=== PATIENT | female | born 1955 | race Caucasian/White ===

== ENCOUNTER → 2016-05-30 | Outpatient (CLI) | payer OTHER ==
--- NOTE | 2016-05-30 12:54 | REPMRS ---
Patient History The patient states she had a clinical breast exam in 05/2016. Patient is postmenopausal. Family history of breast cancer in mother. Benign excisional biopsy of the left breast, March 02, 2012. Digital Woman Screen Mammo: May 30, 2016 - Exam #: [id number] Bilateral CC and MLO view(s) were taken. Technologist: Mely Muhammad, Technologist Prior study comparison: July 13, 2014, digital mammo diagnostic bilateral, performed at [facility]. July 12, 2013, bilateral digital mammo screening bilat, performed at [facility]. FINDINGS: There are scattered fibroglandular densities. There has been no change in the appearance of the mammogram from the prior studies. There is a mild amount of scattered fibroglandular density which is fairly symmetric. There is no interval development of dominant mass, architectural distortion, or clustered microcalcification suggestive of malignancy. ASSESSMENT: BI-RADS/ACR category 1 mammogram. Negative. Recommendation Routine screening mammogram in 1 year (for women over age 40). This mammogram was interpreted with the aid of an FDA-approved computer-aided dectection system. Electronically Signed By: Jonatan Rodriguez MD 05/30/16 8418
== END ==
LOC: M WHC 09:29
PROVIDERS: ATTEND Nurse Practitioner Family
DX: Z12.31 Encounter for screening mammogram for malignant neoplasm of breast (principal); Z78.0 Asymptomatic menopausal state; Z80.3 Family history of malignant neoplasm of breast

== ENCOUNTER → 2017-06-13 | Outpatient (CLI) | payer OTHER | LOC: M RAD 09:00 | DX: N63.20 Unspecified lump in the left breast, unspecified quadrant (principal) ==

== ENCOUNTER → 2018-06-10 | Outpatient (CLI) | payer OTHER ==
--- NOTE | 2018-06-10 12:00 | REPMRS ---
Patient History The patient states she had a clinical breast exam in 05/2018. Family history of breast cancer in mother. Benign excisional biopsy of the left breast, March 02, 2012. Digital Woman Screen Mammo: June 10, 2018 - Exam #: [id number] Bilateral CC and MLO view(s) were taken. Technologist: Hortensia Perkins, Technologist Prior study comparison: June 13, 2017, digital mammo diagnostic bilateral, performed at [facility]. May 30, 2016, digital woman screen mammo performed at [facility]. July 13, 2014, digital mammo diagnostic bilateral, performed at [facility]. FINDINGS: There are scattered fibroglandular densities. There has been no change in the appearance of the mammogram from the prior studies. There is a mild amount of scattered fibroglandular density which is fairly symmetric. There is no interval development of dominant mass, architectural distortion, or clustered microcalcification suggestive of malignancy. 3-D tomosynthesis shows no additional findings. Assessment: BI-RADS/ACR category 1 mammogram. Negative Mammogram. Recommendation Routine screening mammogram of both breasts in 1 year (for women over age 40). This patient's Lifetime Breast Cancer RIsk is estimated at 14.7 %. This mammogram was interpreted with the aid of an FDA-approved computer-aided dectection system. Electronically Signed By: Jonatan Rodriguez MD 06/10/18 1200
== END ==
LOC: M WHC 09:09
PROVIDERS: ATTEND Nurse Practitioner Family
DX: Z12.31 Encounter for screening mammogram for malignant neoplasm of breast (principal); Z80.3 Family history of malignant neoplasm of breast

== ENCOUNTER → 2019-06-14 | Outpatient (CLI) | payer OTHER ==
--- NOTE | 2019-06-14 10:53 | REPMRS ---
Patient History The patient states she had a clinical breast exam in May 2019.Patient is postmenopausal. Family history of breast cancer in mother. Benign excisional biopsy of the left breast, March 02, 2012. 3D TOMOSYNTHESIS WAS PERFORMED. The Alexander العراقي lifetime risk for breast cancer is 14.2%. VOLPARA DENSITY SCORE B. Digital Woman Screen Mammo: June 14, 2019 - Exam #: [id number] Bilateral CC and MLO view(s) were taken. Technologist: Elva Robledo, Technologist Prior study comparison: June 10, 2018, bilateral digital woman screen mammo performed at [facility]. June 13, 2017, digital mammo diagnostic bilateral, performed at [facility]. FINDINGS: There are scattered fibroglandular densities. There has been no change in the appearance of the mammogram from the prior studies. There is a mild amount of residual fibroglandular tissue which is fairly symmetric. There is no interval development of dominant mass, architectural distortion, or clustered microcalcification suggestive of malignancy. Assessment: BI-RADS/ACR category 1 mammogram. Negative Mammogram. Recommendation Routine screening mammogram in 1 year (for women over age 40). This mammogram was interpreted with the aid of an FDA-approved computer-aided dectection system. Electronically Signed By: Jonathan Mandel MD 06/14/19 1311
== END ==
LOC: M WHC 08:28
PROVIDERS: ATTEND Nurse Practitioner Family
DX: Z12.31 Encounter for screening mammogram for malignant neoplasm of breast (principal)

== ENCOUNTER → 2020-01-05 | Outpatient (CLI) | payer OTHER ==
[~2020-01-05] MED LIST: PROHANCE 279.3MG/ML 15ML VIAL As Ordered ONE; PROHANCE 279.3MG/ML 5ML VIAL As Ordered ONE
--- NOTE | 2020-01-05 13:03 | REP ---
INDICATION: LOCALIZED SWELLING, MASS AND LUMP, RIGHT LOWER LIMB. Swelling right lower extremity since February. COMPARISON: Comparison radiographs September 01, 2019.. TECHNIQUE: Axial, sagittal and coronal imaging planes utilized. T1 and T2 weighted scans are obtained in the usual fashion with and without fat saturation. Post gadolinium enhanced imaging is acquired in all 3 planes. The gadolinium enhancement dose is 19 mL of intravenous ProHance. FINDINGS: There is diffuse subcutaneous edema of along the muscle subcutaneous fat interface and distally more extensively throughout the subcutaneous fat layer circumferentially about the left calf. There is no evidence of soft tissue fluid collection or mass. Skeletal muscle signal intensity is normal on T1 and T2-weighted pre and post contrast enhanced images. No abnormality is noted in the vasculature. There are some superficial vein varices. Cortical and medullary bone signal intensity are normal. There is no evidence of periosteal reaction or marrow lesion. No bony destructive lesion is appreciated. Postcontrast imaging shows mild enhancement in the edematous fat of the distal calf. There is mild dermal thickening question cellulitis pattern. IMPRESSION: Superficial venous varicosities and diffuse enhancement in the subcutaneous fat of the right lower extremity. No mass, abscess or other fluid collection, or skeletal muscle or bone lesion seen. <Electronically signed by Jonatan Rodriguez > 01/05/20 9129
== END ==
LOC: M RAD 08:36
PROVIDERS: ATTEND Physician Assistant
DX: I83.892 Varicose veins of left lower extremity with other complications (principal); R22.41 Localized swelling, mass and lump, right lower limb
CPT/HCPCS: 73720; A9576

== ENCOUNTER → 2020-01-18 | Outpatient (REF) | payer OTHER | LOC: M LAB REF 17:05 | PROVIDERS: ATTEND Physician Assistant | DX: D48.5 Neoplasm of uncertain behavior of skin (principal) ==

== ENCOUNTER 2020-03-27 09:40 | Observation (INO) | payer OTHER ==
[~2020-03-27] VITALS: Ht 154.9 cm; Wt 96.9 kg
[~2020-03-27 09:40] MED LIST changes: +ENOXAPARIN 100MG/1ML SYRINGE (J1650 PER 10MG) SC SCH; +MAALOX 30 ML SUSP *UDC PO PRN; +MOM 30ML SUSPENSION UDC PO PRN; -PROHANCE 279.3MG/ML 15ML VIAL As Ordered ONE; -PROHANCE 279.3MG/ML 5ML VIAL As Ordered ONE
--- OUTSIDE RECORDS SUMMARY | 2020-03-27 09:47 | CCD | Continuity of Care Document ---
Author Author Velma CANTU MD Organization Unknown Address [address] [place] [address] Phone [phone] Care Team Providers Care Adult Crossing Guard Name Role Phone Misty Vanegas PA-C Unavailable Problems Description No Information Available Social History Type Date Description Comments Sex Unknown Allergies, Adverse Reactions, Alerts Description No Information Available Medications Description No Information Available Immunizations Description No Information Available Vital Signs Date Vital Result Comment 03/14/2020 8:09am Body Temperature 96.9 F Height 62 inches 5'2" Weight 212.00 lb BMI (Body Mass Index) 38.8 kg/m2 Results Description No Information Available Procedures Description No Information Available Medical Devices Description No Information Available Encounters Description No Information Available Assessments Date Code Description Provider 03/14/2020 M79.661 Pain in right lower leg Rickey Cantu MD Plan of Treatment 03/14/2020 - Rickey Cantu MD* M79.661 Pain in right lower leg* Follow up:* prn Functional Status Description No Information Available Mental Status Description No Information Available Referrals Description No Information Available
--- OUTSIDE RECORDS SUMMARY | 2020-03-27 09:47 | CCD ---
Author Author [facility] Organization [facility] Address Unknown Phone Unavailable Care Team Providers Care Implementation Project Coordinator Name Role Phone La Berrios Unavailable PROBLEMS Type Condition ICD9-CM Code [id number] Code Onset Dates Condition S tatus SNOMED Code Notes Problem Family history of breast cancer in mother Z80.3 Active 163263516 Problem Gastroesophageal reflux disease without esophagitis K21.9 Active 197775447 Problem Urinary, incontinence, stress female N39.3 Act edith 15386163 Problem Galactorrhea O92.6 Active 60669402 ALLERGIES No Known Allergies ENCOUNTERS from 1955 to 2020-01-25 Encounter Location Date Provider Diagnosis [facility] [address] [address] 2 4 Dec, 2019 La Berrios Mora angioma D18.01 and 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 Sexual Hx: Question Answer Notes Had sex in the last 12 months (vaginal, oral, or anal)? No LMP: 2006 Have you ever had an STD? No Drug and Alcohol Question Answer Notes Total Score: 0 Interpretation: No problems reported Alcohol Screening: Question Answer Notes Did you have a drink containing alcohol in the past year? No Points 0 Interpretation Negative BMI Care Goal Follow-Up Question Answer Notes Above Normal BMI Follow-Up Giving encouragement to exercise Tobacco Use: Question Answer Notes Are you a: former smoker How long has it been since you last smoked? > 10 years REASON FOR REFERRAL No Information VITAL SIGNS Weight 215.4 lbs Dec, Height 61 1/4 in Dec, BMI 40.36 kg/m2 Dec, Blood pressure systolic 142 mm Hg Dec, Blood pressure diastolic 78 mm Hg Dec, MEDICATIONS Medication SIG (Take, Route, Frequency, Duration) Notes Start Da te End Date Status Nexium 20 MG 1 capsule Orally Once a day as needed Not-Taking Zantac 75 75 MG 1 tablet as needed Orally Twice a day Not-Taking Omeprazole 20 MG Orally once a day as needed Active PROCEDURES No Information RESULTS No Results REASON FOR VISIT skin tag removal, derm referral MEDICAL (GENERAL) HISTORY Type Description Date Medical History DR. BRITTON Medical History ADH left breast 2012 Dr Bates Surgical History abdominal hysterectomy, total with BSO 2 006 Surgical History ce. 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 The patient was educated on the potential risks and benefits of the procedure and gave his/her informed consent. Location of biopsy noted in the physical exam and images uploaded to the medical record. Area(s) treated with EtOH. Local anesthesia performed with <1mL of 1% lidocaine with epinephrine per site. Site(s) verified with patient via timeout utilizing patient name and date of . Biopsy/Biopsies performed. Dual site-specimen cup verification performed verbally between provider and clinic staff. Hemostasis achieved with hyfrecation or aluminum chloride/styptic. Closure: secondary intent. Petrolatum and bandage applied. Wound care instruction addressed with patient by provider or clinic staff and wound care handout given. Patient tolerated the procedure well and left in stable condition. Patient reports that his/her pain was well-managed. There was no noted significant d ifference from baseline pain score after procedure. Patient was educated to use acetaminophen 500mg up to 4 times daily. If not sufficient, patient was educated to re-present to the dermatology clinic or, if after hours, the emergency department. Patient was informed they would be notified in 10-14 days by telephone for all malignant conditions and scheduled for definitive management. 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 The patient was educated on the potential risks and benefits of the procedure and gave his/her informed consent. Location of biopsy noted in the physical exam and images uploaded to the medical record. Area(s) treated with EtOH. Local anesthesia performed with <1mL of 1% lidocaine with epinephrine per site. Site(s) verified with patient via timeout utilizing patient name and date of . Biopsy/Biopsies performed. Dual site-specimen cup verification performed verbally between provider and clinic staff. Hemostasis achieved with hyfrecation or aluminum chloride/styptic. Closure: secondary intent. Petrolatum and bandage applied. Wound care instruction addressed with patient by provider or clinic staff and wound care handout given. Patient tolerated the procedure well and left in stable condition. Patient reports that his/her pain was well- managed. There was no noted significant difference from baseline pain score after procedure. Patient was educated to use acetaminophen 500mg up to 4 times daily. If not sufficient, patient was educated to re-present to the dermatology clinic or, if after hours, the emergency department. Patient was informed they would be notified in 10-14 days by telephone for all malignant conditions and scheduled for definitive management. Next Appt Details prn Reason: Insurance Providers Payer Name Payer Address Payer Phone Insured Name Patient Relati onship to Insured Coverage Start Date Coverage End Date AETNA [facility] [address] [facility] [id number] TERE OLMSTEAD self
--- OUTSIDE RECORDS SUMMARY | 2020-03-27 09:47 | CCD ---
Author Author [facility] Organization [facility]st em[facility] Address Unknown Phone Unavailable Care Team Providers Care Control Room Technician Name Role Phone Misty Vanegas Unavailable PROBLEMS Type Condition ICD9-CM Code [id number] Code Onset Dates Condition S tatus SNOMED Code Notes Problem Family history of breast cancer in mother Z80.3 Active 871172350 Problem Gastroesophageal reflux disease without esophagitis K21.9 Active 068429315 Problem Urinary, incontinence, stress female N39.3 Act edith 95212879 Problem Galactorrhea O92.6 Active 72296129 ALLERGIES No Known Allergies ENCOUNTERS from 1955 to 2020-02-07 Encounter Location Date Provider Diagnosis [address] [address] Jan, Misty Vanegas Localized swelling of right lower leg R2 2.41 IMMUNIZATIONS No Information SOCIAL HISTORY Tobacco Use: Social History Observation Description Date Details (start date - stop date) Former Smoker Sex Assigned At : Social History Observation Description Sex Assigned At Unknown Education: Question Answer Notes Level of Education: College Audit Question Answer Notes Total Score: 0 Interpretation: Alcohol Education Language: Question Answer Notes Languages spoken: Scottish Orthodoxy: Question Answer Notes Orthodoxy No yazdanism beliefs that would impact health care. Sexual [...] REASON FOR REFERRAL No Information VITAL SIGNS No information MEDICATIONS Medication SIG (Take, Route, Frequency, Duration) Notes Start Da te End Date Status Nexium 20 MG 1 capsule Orally Once a day as needed Not-Taking Zantac 75 75 MG 1 tablet as needed Orally Twice a day Not-Taking Omeprazole 20 MG Orally once a day as needed Active Lisinopril 10 MG 1 tablet Orally Once a day for 30 day(s) Jan, Active PROCEDURES No Information RESULTS No Results REASON FOR VISIT MRI and Referral MEDICAL (GENERAL) HISTORY Type Description Date Medical History DUB/2005 DR. BRITTON Medical History ADH left breast 2012 Dr Bates Surgical History abdominal hysterectomy, total with BSO 2 006 Surgical History ce. feet surgery/calcium deposits 1973 Surgical History left breast surgery/cyst removed 1992 Surgical History cysts removed froma back and wrists Surgical History breast duct excision left 2013 Goals Section No Information Health Concerns No Information MEDICAL EQUIPMENT No Information MENTAL STATUS No Information FUNCTIONAL STATUS No Information ASSESSMENTS Encounter Date Diagnosis Assessment Notes Treatment Notes Treatm ent Clinical Notes Jan, Localized swelling of right lower leg (ICD-10 - R22.41) PLAN OF TREATMENT Medication Medication Name Sig Start Date Stop Date Lisinopril 10 MG 1 tablet Orally Once a day for 30 day(s) Jan Insurance Providers Payer Name Payer Address Payer Phone Insured Name Patient Relati onship to Insured Coverage Start Date Coverage End Date AETNA [facility] [address] [facility] [id number] TERE OLMSTEAD self
--- OUTSIDE RECORDS SUMMARY | 2020-03-27 09:47 | CCD ---
Author Author [facility] Organization [facility] Syst ems Address Unknown Phone Unavailable Care Team Providers Care Space Buyer Name Role Phone Misty Vanegas Unavailable PROBLEMS Type Condition ICD9-CM Code FPL30-DN Code Onset Dates Condition S tatus SNOMED Code Notes Problem Family history of breast cancer in mother Z80.3 Active 372545269 Problem Gastroesophageal reflux disease without esophagitis K21.9 Active 097992576 Problem Urinary, incontinence, stress female N39.3 Act edith 57288300 Problem Galactorrhea O92.6 Active 51333626 ALLERGIES No Known Allergies ENCOUNTERS from 1955 to 2020-02-07 Encounter Location Date Provider Diagnosis [address] [address] Jan, Mistyeusebia Vanegas IMMUNIZATIONS No Information SOCIAL HISTORY Tobacco Use: Social History Observation Description Date Details (start date - stop date) Former Smoker Sex Assigned At : Social History Observation Description Sex Assigned At Unknown Education: Question Answer Notes Level of Education: College Audit Question Answer Notes Total Score: 0 Interpretation: Alcohol Education Language: Question Answer Notes Languages spoken: Japanese Christianity: Question Answer Notes Christianity No judaism beliefs that would impact health care. Sexual [...] RESULTS No Results REASON FOR VISIT MRI MEDICAL (GENERAL) HISTORY Type Description Date Medical History /2005 DR. BRITTON Medical History ADH left breast [...] No Information FUNCTIONAL STATUS No Information ASSESSMENTS No Information PLAN OF TREATMENT Medication Medication Name Sig Start Date Stop Date Lisinopril 10 MG 1 tablet Orally Once a day for 30 day(s) Jan Insurance Providers Payer Name Payer Address Payer Phone Insured Name Patient Relati onship to Insured Coverage Start Date Coverage End Date AETNA [facility] [address] [facility] [id number] TERE OLMSTEAD self
--- OUTSIDE RECORDS SUMMARY | 2020-03-27 09:47 | CCD ---
Author Author [facility] Organization [facility] Syst ems Address Unknown Phone Unavailable Care Team Providers Care Endocrinology Teacher Name Role Phone Misty Vanegas Unavailable PROBLEMS Type Condition ICD9-CM Code YKL68-FJ Code Onset Dates Condition S tatus SNOMED Code Notes Problem Family history of breast cancer in mother Z80.3 Active 048320139 Problem Gastroesophageal reflux disease without esophagitis K21.9 Active 683012927 Problem Urinary, incontinence, stress female N39.3 Act edith 43884656 Problem Galactorrhea O92.6 Active 43430007 ALLERGIES No Known Allergies ENCOUNTERS from 1955 to 2020-01-29 Encounter Location Date Provider Diagnosis [address] [address] Jan, Mistyeusebia Vanegas IMMUNIZATIONS No Information SOCIAL HISTORY Tobacco Use: Social History Observation Description Date Details (start date - stop date) Former Smoker Sex Assigned At : Social History Observation Description Sex Assigned At Unknown Education: Question Answer Notes Level of Education: College Audit Question Answer Notes Total Score: 0 Interpretation: Alcohol Education Language: Question Answer Notes Languages spoken: Bengali Episcopalian: Question Answer Notes Episcopalian No samaritan beliefs that would impact health care. Sexual [...] Information RESULTS No Results REASON FOR VISIT Refill for high blood pressure medication MEDICAL (GENERAL) HISTORY Type Description Date Medical [...] Coverage Start Date Coverage End Date AETNA [facility] [place] [address] [facility] [id number] TERE OLMSTEAD self
--- OUTSIDE RECORDS SUMMARY | 2020-03-27 09:48 | CCD ---
Author Author [facility] Organization [facility] Address Unknown Phone Unavailable Care Team Providers Care Rig Hand Name Role Phone BRODY PA-C, [phone] A. RALEIGH PA Unavailable Unava ilable BRODY PA-C, [phone] A. RALEIGH PA Unavailable Unava ilable BRODY PA-C, [phone] A. RALEIGH PA Unavailable Unava ilable BRODY PA-C, [phone] A. RALEIGH PA Unavailable Unava ilable BRODY PA-C, [phone] A. RALEIGH PA Unavailable Unava ilable BRODY PA-C, [phone] A. RALEIGH PA Unavailable Unava ilable BRODY PA-C, [phone] A. RALEIGH PA Unavailable Unava ilable TURRIN, AGUILAR Unavailable Unavailable TURRIN, AGUILAR Unavailable Unavailable TURRIN, AGUILAR Unavailable Unavailable TURRIN, AGUILAR Unavailable Unavailable CARTER, JOSEPHINE PA Unavailable Unavailable CARTER, JOSEPHINE PA Unavailable Unavailable CARTER, JOSEPHINE PA Unavailable Unavailable CARTER, JOSEPHINE PA Unavailable Unavailable CARTER, JOSEPHINE PA Unavailable Unavailable CARTER, JOSEPHINE PA Unavailable Unavailable CARTER, JOSEPHINE PA Unavailable Unavailable CARTER, JOSEPHINE PA Unavailable Unavailable CARTER, JOSEPHINE PA Unavailable Unavailable CARTER, JOSEPHINE PA Unavailable Unavailable CARTER, JOSEPHINE PA Unavailable Unavailable CARTER, JOSEPHINE PA Unavailable Unavailable CARTER, JOSEPHINE PA Unavailable Unavailable CARTER, JOSEPHINE PA Unavailable Unavailable CARTER, JOSEPHINE PA Unavailable Unavailable CARTER, JOSEPHINE PA Unavailable Unavailable CARTER, JOSEPHINE PA Unavailable Unavailable CARTER, JOSEPHINE PA Unavailable Unavailable CARTER, JOSEPHINE PA Unavailable Unavailable CARTER, JOSEPHINE PA Unavailable Unavailable CARTER, JOSEPHINE PA Unavailable Unavailable CARTER, JOSEPHINE PA Unavailable Unavailable CARTER, JOSEPHINE PA Unavailable Unavailable CARTER, JOSEPHINE PA Unavailable Unavailable CARTER, JOSEPHINE PA Unavailable Unavailable CARTER, JOSEPHINE PA Unavailable Unavailable CARTER, JOSEPHINE PA Unavailable Unavailable CARTER, JOSEPHINE PA Unavailable Unavailable CARTER, JOSEPHINE PA Unavailable Unavailable CARTER, JOSEPHINE PA Unavailable Unavailable CARTER, JOSEPHINE PA Unavailable Unavailable CARTER, JOSEPHINE PA Unavailable Unavailable CARTER, JOSEPHINE PA Unavailable Unavailable CARTER, JOSEPHINE PA Unavailable Unavailable CARTER, JOSEPHINE PA Unavailable Unavailable CARTER, JOSEPHINE PA Unavailable Unavailable CARTER, JOSEPHINE PA Unavailable Unavailable CARTER, JOSEPHINE PA Unavailable Unavailable LETTIERE, A ISIDRO PA Unavailable Unavailable LETTIERE, A ISIDRO PA Unavailable Unavailable LETTIERE, A ISIDRO PA Unavailable Unavailable LETTIERE, A ISIDRO PA Unavailable Unavailable LETTIERE, A ISIDRO PA Unavailable Unavailable LETTIERE, A ISIDRO PA Unavailable Unavailable LETTIERE, A ISIDRO PA Unavailable Unavailable LETTIERE, A ISIDRO PA Unavailable Unavailable LETTIERE, A ISIDRO PA Unavailable Unavailable LETTIERE, A ISIDRO PA Unavailable Unavailable LETTIERE, A ISIDRO PA Unavailable Unavailable LETTIERE, A ISIDRO PA Unavailable Unavailable LETTIERE, A ISIDRO PA Unavailable Unavailable LETTIERE, A ISIDRO PA Unavailable Unavailable LETTIERE, A ISIDRO PA Unavailable Unavailable LETTIERE, A ISIDRO PA Unavailable Unavailable LETTIERE, A ISIDRO PA Unavailable Unavailable LETTIERE, A ISIDRO PA Unavailable Unavailable LETTIERE, A ISIDRO PA Unavailable Unavailable LETTIERE, A ISIDRO PA Unavailable Unavailable LETTIERE, A ISIDRO PA Unavailable Unavailable LETTIERE, A ISIDRO PA Unavailable Unavailable LETTIERE, A ISIDRO PA Unavailable Unavailable LETTIERE, A ISIDRO PA Unavailable Unavailable LETTIERE, A ISIDRO PA Unavailable Unavailable LETTIERE, A ISIDRO PA Unavailable Unavailable LETTIERE, A ISIDRO PA Unavailable Unavailable LETTIERE, A ISIDRO PA Unavailable Unavailable LETTIERE, A ISIDRO PA Unavailable Unavailable Re-disclosure Warning The records that you are about to access may contain information from federally-assisted alcohol or drug abuse programs. If such information is present, then the following federally mandated warning applies: This information has been disclosed to you from records protected by federal confidentiality rules (42 CFR part 2). The federal rules prohibit you from making any further disclosure of this information unless further disclosure is expressly permitted by the written consent of the person to whom it pertains or as otherwise permitted by 42 CFR part 2. A general authorization for the release of medical or other information is NOT sufficient for this purpose. The Federal rules restrict any use of the information to criminally investigate or prosecute any alcohol or drug abuse patient.The records that you are about to access may contain highly sensitive health information, the redisclosure of which is protected by Article 27-F of the [place] Public Health law. If you continue you may have access to information: Regarding HIV / AIDS; Provided by facilities licensed or operated by the [place] Office of Mental Health; or Provided by the [place] Office for People With Developmental Disabilities. If such information is present, then the following [place] [facility] mandated warning applies: This information has been disclosed to you from confidential records which are protected by state law. State law prohibits you from making any further disclosure of this information without the specific written consent of the person to whom it pertains, or as otherwise permitted by law. Any unauthorized further disclosure in violation of state law may result in a fine or custodial sentence or both. A general authorization for the release of medical or other information is NOT sufficient authorization for further disc losure. Family History Family Member Name Family Member Gender Family Member Status Date o f Status Description Data Source(s) Unknown Unknown Problem MEDENT ([facility], [facility]) Encounters Encounter Providers Location Date Indications Data Source(s ) Unknown [address] [facility] [place] [address] 02/02/2020 12:00:00 AM EST eCW1 ([facility]) Unknown [address] [facility] [place] [address] 01/28/2020 12:00:00 AM EST eCW1 ([facility]) Unknown [address] [facility] [place] [address] 01/28/2020 12:00:00 AM EST eCW1 ([facility]) [place] [address] [facility] [address] 01/18/2020 12:00:00 AM EST eCW1 ([facility]) [place] [address] [facility] [address] 11/16/2019 12:00:00 AM EDT eCW1 ([facility]) Outpatient Attender: JOSEPHINE Candelarioa ry 10/18/2019 04:50:00 PM EDT MEDENT ([facility]) Outpatient Attender: ISIDRO Candelario everardo 09/27/2019 11:50:00 AM EDT MEDENT ([facility]) Emergency Attender: AGUILAR JOHNSONConsultant: [id number] RALEIGH SKINNER PA-C 09/22/2019 07:31:00 PM EDT - 09/22/2019 10:11:00 PM EDT [facility] Patient discharged. [place] [address] [facility] [address] 09/07/2019 12:00:00 AM EDT eCW1 ([facility]) [place] [address] [facility] [address] 08/12/2019 12:00:00 AM EDT eCW1 ([facility]) [facility] [address] [place] [address] 06/14/2019 12:00:00 AM EDT eCW1 ([facility]) Medications Medication Brand Name Start Date Product Form Dose Route Admi nistrative Instructions Pharmacy Instructions Status Indications Reaction Description Data Source(s) 10 mg 01/30/2020 12:00:00 AM EST tablet 30 TAKE ONE TABLET BY MOUTH EVERY DAY TAKE ONE TABLET BY MOUTH EVERY DAY SOLD: 03/06/2020 [facility] 10 mg 01/30/2020 12:00:00 AM EST tablet 30 TAKE ONE TABLET BY MOUTH EVERY DAY TAKE ONE TABLET BY MOUTH EVERY DAY SOLD: 02/02/2020 [facility] Lisinopril 10 MG Oral Tablet Lisinopril 10 MG 01/28/2020 12:00:00 A M EST 1.0 {tablet} active Lisinopril 10 MG eCW1 ( [facility]) Lisinopril 10 MG Oral Tablet Lisinopril 10 MG 01/28/2020 12:00:00 A M EST 1.0 {tablet} active Lisinopril 10 MG eCW1 ( [facility]) Lisinopril 10 MG Oral Tablet Lisinopril 10 MG 01/28/2020 12:00:00 A M EST 1.0 {tablet} active Lisinopril 10 MG eCW1 ( [facility]) Lisinopril 10 MG Oral Tablet LISINOPRIL 11/10/2019 12:00:00 AM EDT tab let 30 TAKE ONE TABLET BY MOUTH ONCE A DAY TAKE ONE TABLET BY MOUTH ONCE A DAY SOLD: 12/09/2019 [facility] 10 mg 11/10/2019 12:00:00 AM EDT tablet 30 TAKE ONE TABLET BY MOUTH ONCE A DAY TAKE ONE TABLET BY MOUTH ONCE A DAY SOLD: 11/10/2019 [facility] 10 mg 11/10/2019 12:00:00 AM EDT tablet 30 TAKE ONE TABLET BY MOUTH ONCE A DAY TAKE ONE TABLET BY MOUTH ONCE A DAY SOLD: 01/04/2020 [facility] 10 mg 10/19/2019 12:00:00 AM EDT tablet 20 TAKE ONE TABLET BY MOUTH EVERY 6 HOURS NEEDED TAKE ONE TABLET BY MOUTH EVERY 6 HOURS NEEDED SOLD: 10/19/2019 [facility] Ketorolac Tromethamine 10 MG Oral Tablet Ketorolac Trometham ine 10/18/2019 12:00:00 AM EDT active M EDENT ([facility], [facility]) No Active Medications 09/27/2019 12:00:00 AM EDT completed [facility] ([facility], [facility]) 5 mg 09/27/2019 12:00:00 AM EDT tablet 30 TAKE ONE TABLET BY MOUTH EVERY MORNING TAKE ONE TABLET BY MOUTH EVERY MORNING SOLD: 10/25/2019 [facility] 5 mg 09/27/2019 12:00:00 AM EDT tablet 30 TAKE ONE TABLET BY MOUTH EVERY MORNING TAKE ONE TABLET BY MOUTH EVERY MORNING SOLD: 09/27/2019 [facility] Lisinopril 5 MG Oral Tablet Lisinopril 09/27/2019 12:00:00 AM EDT active MED[facility] ([facility]) 10 mg 09/23/2019 12:00:00 AM EDT tablet 28 TAKE ONE TABLET BY MOUTH FOUR TIMES A DAY NEEDED TAKE ONE TABLET BY MOUTH FOUR TIMES A DAY NEEDED SO LD: 09/23/2019 [facility] Insurance Providers Payer name Policy type / Coverage type Policy ID Covered libertarian ID Covered libertarian's relationship to moura Policy Moura Plan Information [employer] [place] [id number] SP [id number] [employer] [place] [id number] O [id number] [employer] BENEFIT PLAN-O/P [id number] [employer] BENEF[employer] PLAN [id number] SP [id number] [facility] MAIL HANDLERS BENEF O [id number] O [id number] [employer] BENEFIT PLAN [id number] SP [id number] A[employer]na Ppo/Pos/Nap/[employer] Commercial [id number] [id number] [facility] MAIL HANDLERS BENEF O [id number] S [id number] [employer] BENEFIT PLAN [id number] SP [id number] Problems, Conditions, and Diagnoses Code Display Name Description Problem Type Effective Dates Data Source(s) K21.9 112101010 Gastroesophageal reflux disease without e sophagitis Problem 08/12/2019 12:00:00 AM EDT eCW1 ([facility]) I10 Essential (primary) hypertension Essential (primary) h ypertension Diagnosis 09/22/2019 07:31:00 PM EDT [facility] W17006 Episodic tension-type headache, not intr actable Episodic tension-type headache, not intractable Diagnosis 09/22/2019 07:31:00 PM EDT [facility] R51 Headache Headache Diagnosis 09/22/2019 07:31:00 PM ED T [facility] Surgeries/Procedures Procedure Description Date Indications Data Source(s) Therapeutic, Prophylactic Or Diagnostic Injection Subq/Im 10/18/2019 12:00:00 AM EDT MEDENT ([facility]) Results ID Date Data Source [id number] 09/23/2019 03:12:00 PM EDT [facility] [address] [place] [address] PHONE: [phone] FAX: [phone] Name .................. : KHURRAM CARRANZA Acct Number.................. : [id number] ROOM. ................. : [facility] MR Number ................... : [id number] Stay type ............. : E/R Discharge Date......... ... : 09/22/19 Admit Date ....... .. : 09/22/19 Admit Phys .................... : ALEX CHAPA Date of ....... : 1955 Family Phys ................... : BRODY PETER Phone .................. : [phone] Age ................................ : 64 Film# .................. .:[id number] Sex ................................. : F Unsigned transcriptions are preliminary reports and do not represent a medical or legal document CT HEAD W/O CONTRAST [id number] COMPLETE:09/22/19 19:56 KJE [id number] Reason(s): Headache CT OF THE HEAD WITHOUT CONTRAST: INDICATION: Headache. FINDINGS: No intra-axial or extra-axial collections of fluid. Ventricles and sulci unremarkable. No midline shift or mass effect. Visualized paranasal sinuses and mastoid air cells unremarkable. IMPRESSION: No acute intracranial process. While performing the above CT examination, radiation dose reduction was accomplished utilizing automated exposure control, adjusting of the mA and kV based on the patient's body size and/or the use of imperative reconstructive techniques. CT dose: 798.9 mGycm Electronically Reviewed and Signed By Fili Segura M.D. , 09/23/19 15:12, CELIA Transcribe Initials: DZ , Transcribe Date: 09/22/19 22:18, Dictation Date: Copy for: EMERGENCY DEPT via modem Copy for: 710 MED REC DISCHARGED Page 1 of 1 Name Value Range Interpretation Code Description Data Genna rce(s) Supporting Document(s) ID Date Data Source [id number] 09/23/2019 01:00:00 PM EDT [address] [place] [address] RESPIRATORY CARE REPORT ==== ---------NAME------- NUMBER SEX AGE ADMIT DISC. XRAY# F/C TYPEBURNSSTEPHENS TERE [id number] F 64 09/22/19 09/22/19 [id number] IBD E/R DATE OF : 1955 M/R# [id number] #: [id number] TR-07 LOCATION: EMERGENCY DEPT EKG 66424 COMPLE TE:09/23/19 01:17 VMT [id number] PHYSICIAN: ALEX CHAPA Name Value Range Interpretation Code Description Data Genna rce(s) Supporting Document(s) ID Date Data Source [id number] 09/23/2019 12:59:00 PM EDT [address] [place] [address] RESPIRATORY CARE REPORT ==== ---------NAME------- NUMBER SEX AGE ADMIT DISC. XRAY# F/C ROSE CARRANZA [id number] F 64 09/22/19 09/22/19 [id number] IBD E/R DATE OF : 1955 M/R# [id number] #: [id number] TR-07 LOCATION: EMERGENCY DEPT EKG 18124 [facility] TE:09/23/19 01:17 T [id number] PHYSICIAN: ALEX CHAPA Name Value Range Interpretation Code Description Data Genna rce(s) Supporting Document(s) ID Date Data Source [id number] 09/22/2019 07:31:00 PM EDT [facility] 1 OrderSheet [facility] Emergency Department [address] [place] [address] Phone #: ext- [phone] 09/22/2019 19:15 Patient: TERE PAULSON Sex: F : 1955 Age: 64yWEIGHT:90.7 kg HEIGHT:61 inches BMI:37.8ALLERGIES: No Known Drug AllergyCHIEF COMPLAINT: headacheDIAGNOSIS: Hypertensive disorder, Tension-type headacheLAB ORDERSOrder Description Priority Entered Acknowledged InitialedCBC w Diff STAT 19:09/22/2019 19:34 Aguilar Matthew RN, M.D.;CMP STAT 19:09/22/2019 19:34 Aguilar Matthew RN, M.D.;Troponin-T STAT 19:09/22/2019 19:34 Aguilar Matthew RN, M.D.;DIAGNOSTIC STUDY ORDERSOrder Description Priority Entered Acknowledged InitialedCT Head W/O Cont STAT 19:27 09/22/2019 19:34 Medardo(Oxygen?(No)) Aguilar Johnson RN, M.D.; Reason for Study: HeadacheMEDICATION/IV/DRIP/FLUID ORDERSOrder Description Priority Entered Acknowledged InitialedNS IV 1000 mL 19:27 09/22/2019 20:04 MedardoBolus: : Bolus 1000 Aguilar Johnson RNmL (X1) Jessica;Ativan IVP 2 mg 19:27 09/22/2019 20:04 Medardo(HIGH ALERT Aguilar Jhonson RNMEDICATION) Jessica;Morphine IVP 4 mg 21:04 09/22/2019 21:09 Medardo(HIGH ALERT Aguilar Johnson RNMEDICATION) Jessica;Zofran 4 mg IVP X 1 21:09/22/2019 21:10 Medardodose: 4 mg (NOW Aguilar Johnson RNx1) Jessica; 2 OrderSheet [facility] Emergency Department [address] [place] [address] Phone #: ext- [phone] 09/22/2019 19:15 -- Patient: TERE PAULSON Sex: F : 1955 Age: 64yGENERAL ORDERSOrder Description Priority Entered Acknowledged InitialedBlood Pressure 19:09/22/2019 19:34 Aguilar Hallman RN, M.D.;Laboratory Technical Specialist 19:09/22/2019 19:34 Medardo(continuous) Aguilar Johnson RN, M.D.;EKG 19:09/22/2019 20:24 Aguilar Jessica RN, M.D.;NPO 19:09/22/2019 19:34 Aguilar Matthew RN, M.D.;Obtain Old EKG 19:09/22/2019 19:34 Aguilar Matthew RN, M.D.;Pulse oximeter 19:09/22/2019 19:34 Medardo(Continuous) Aguilar Johnson RN, M.D.;Saline Lock 19:09/22/2019 20:24 Aguilar Jessica RN, M.D.;Vitals 19:09/22/2019 19:34 Aguilar Matthew RN, M.D.;EKG 21:04 09/22/2019 21:24 Aguilar Matthew RN, M.D.;[Electronically signed by Medardo Plunkett RN (22:09/22/2019)][Electronically signed by Aguilar Johnson M.D. (22:14 09/22/2019)][Electronically locked by Medardo Plunkett RN (:09/22/2019)] Name Value Range Interpretation Code Description Data Genna rce(s) Supporting Document(s) ID Date Data Source [id number] 09/22/2019 07:31:00 PM EDT [facility] 1 Medication Reconciliation Report [facility] Emergency Department [address] [place] [address] Phone #: [phone] 09/22/2019 19:15 Patient: TERE PAULSON Sex: F : 1955 Age: 64yWeight: 90.7 kgHeight/Length: 61 in.BMI: 37.8ALLERGIES: No Known Drug AllergyThe patient's Home Medications are listed below:NONE.The source(s) of the original Home Medication information:Not obtained.The following Medications were given to the patient in the Emergency Department:NS [IV] IV Fluids bolus 0, then 1000 mL/hr, administered: 09/22/2019 8:04:00 PMAtivan [IVP] IVP 2 mg, administered: 09/22/2019 8:04:00 PMNS [IV] IV Fluids bolus 0, then 1000 mL/hr, administered: 09/22/2019 9:09:00 PMMorphine [IVP] IVP 4 mg, administered: 09/22/2019 9:09:00 PMZofran [IVP] IVP 4 mg, administered: 09/22/2019 9:10:00 PMThe following Medications were prescribed to the patient:Reglan 10 mg tablet Take 1 tablet four times a day as needed for 7 days -- Dispense 28 tablet. Refills: 2.Substitution permitted.Pharmacy - [id number] [address] [place], [place] [id number]. . -- Aguilar Johnson M.D. Name Value Range Interpretation Code Description Data Genna rce(s) Supporting Document(s) ID Date Data Source [id number] 09/22/2019 07:31:00 PM EDT [facility] 1 Medication Administration Record [facility] Emergency Department [address] [place] [address] Phone #: ext- [phone] 09/22/2019 19:15 Patient: TERE PAULSON Sex: F : 1955 Age: 64yWeight: 90.7 kgHeight/Length: 61 inBMI: 37.8ALLERGIES: No Known Drug Allergy Date/Time Medication Administered Medication OrderedStart NS [IV] NS IV 1000 mL Bolus: : Bolus 940864:04 09/22/2019 Dose: IV Fluids mL (X1)Medardo Plunkett RN Rate: 1000 mL/hr over 1 hour(s)---- Dispensed: 1000 mL bagStop Site: #1 left AC21:08 09/22/2019PeLesa Spears NS [IV] NS IV 1000 mL Bolus: : Bolus 514966:09 09/22/2019 Dose: IV Fluids mL (X1)Medardo Plunkett RN Rate: 1000 mL/hr over 30 minute(s)---- Dispensed: 1000 mL bagStop Site: #1 right wrist22:00 09/22/2019Medardo Plunkett RNGiven ATIVAN [IVP] (LORAZEPAM) Ativan IVP 2 mg (HIGH ALERT20:04 09/22/2019 Dose: 2 mg IVP MEDICATION)Medardo Plunkett RN Site: #1 left ACGiven MORPHINE [IVP] Morphine IVP 4 mg (HIGH ALERT21:09 09/22/2019 Dose: 4 mg IVP MEDICATION)Medardo Plunkett RN Site: #1 right wristGiven ZOFRAN [IVP] (ONDANSETRON HCL) Zofran 4 mg IVP X 1 dose: 4 mg21:10 09/22/2019 Dose: 4 mg IVP (NOW x1)Medardo Plunkett RN Site: #1 right wrist Name Value Range Interpretation Code Description Data Genna rce(s) Supporting Document(s) ID Date Data Source [id number] 09/22/2019 07:31:00 PM EDT [facility] 1 General Instructions [facility] Emergency Department [address] [place] [address] Phone #: ext- [phone] 09/22/2019 19:15 Patient: TERE PAULSON Sex: F : 1955 Age: 64yEssential hypertension.Episodic tension-type headache. Not resistant to treatment.INSTRUCTIONS No strenuous activity until better. Do not smoke. No alcohol. (PLEASE TAKE YOUR BLOOD PRESSURE 3-4 TIMES PER DAY AND MAKE NOTES OF THEM IN BOOK FOR YOUR FAMILY MD TO REVIEW).Warnings: Further evaluation is necessary. It is very important to follow up with a healthcare provider.GENERAL WARNINGS: Return or contact your physician immediately if your condition worsens orchanges unexpectedly, if not improving as expected, or if other problems arise. SPECIFICALLY, return ifyou develop fever, vomiting, numbness, weakness, difficulty thinking, visual disturbances, fainting orextreme fatigue.Your Current Medications: .No home medication.Prescription Medications:Reglan 10 mg tablet Take 1 tablet four times a day as needed for 7 days -- Dispense 28 tablet. Refills: 2.Substitution permitted.Pharmacy - [facility] - [address] [facility] ; [place], [place] [phone]. .Follow-up:Return to the emergency department as needed. Follow up with your healthcare provider in two dayseven if well. Call for an appointment. Reason for referral: evaluation and treatment. Summary of careprovided to patient via paper.Understanding of the discharge instructions verbalized by patient. Expected course of illness, dischargeinstructions, activity level, diet, prescriptions x1, follow-up appointment and risks and benefits of treatmentreviewed with patient and spouse and understanding verbalized. Agrees to plan of care. ADDITIONAL INFORMATIONTension Headache 2 General Instructions [facility] Emergency Department [address] [place] [address] Phone #: ext- [phone] 09/22/2019 19:15 Patient: TERE PAULSON Sex: F : 1955 Age: 64yA muscle tension headache is a very common cause of head pain. It's also called a stress headache.When some people are under stress, they tense the muscles of their shoulder, neck, and scalpwithout knowing it. If this tension lasts long enough, a headache can occur. A tension headache canbe quite painful. It can last for hours or even days.Home careFollow these tips when caring for yourself at home: Don't drive yourself home if you were given pain medicine for your headache. Instead, have someone else drive you home. Try to sleep when you get home. You should feel much better when you wake up. Put heat on the back of your neck to help ease neck spasm. Drink only clear liquids or eat a light diet until your symptoms get better. This will help you avoid nausea or vomiting.How to prevent headaches Figure out what is causing stress in your life. Learn new ways to handle your stress. Ideas include regular exercise, biofeedback, self-hypnosis, yoga, and meditation. Talk with your healthcare provider to find out more information about managing stress. Many books and digital media are also available on this subject. Take time out at the first sign of a tension headache, if possible. Take yourself out of the stressful situation. Find a quiet, comfortable place to sit or lie down and let yourself relax. Heat 3 General Instructions [facility] Emergency Department [address] [place] [address] Phone #: ext- [phone] 09/22/2019 19:15 Patient: TERE PAULSON Sex: F : 1955 Age: 64y and deep massage of the tight areas in the neck and shoulders may help ease muscle spasm. You may also get relief from a medicine like ibuprofen or a prescribed muscle relaxant.Follow-up careFollow up with your healthcare provider, or as advised. Talk with your provider if you have frequentheadaches. He or she can figure out a treatment plan. Ask if you can have medicine to take at homethe next time you get a bad headache. This may keep you from having to visit the emergencydepartment in the future. You may need to see a headache specialist (neurologist) if you continue tohave headaches.When to seek medical adviceCall your healthcare provider right away if any of these occur: Your head pain gets worse during sexual intercourse or strenuous activity Your head pain doesn't get better within 24 hours You aren't able to keep liquids down (repeated vomiting) Fever of 100.4F (38C) or higher, or as directed by your healthcare provider Stiff neck Extreme drowsiness, confusion, or fainting Dizziness or dizziness with spinning sensation (vertigo) Weakness in an arm or leg or one side of your face You have difficulty speaking Your vision changes [phone] [employer]. [address] [place] [address], [place] [address]. All rights reserved. This information is not intended as asubstitute for professional medical care. Always follow your healthcare professional's instructions.High Blood Pressure, New, Begin TreatmentYour blood pressure was high enough today to start treatment with medicines. Often healthcareproviders don't know what causes high blood pressure (hypertension). But it can be controlled withlifestyle changes and medicines. High blood pressure usually has no symptoms. But it can sometimescause headache, dizziness, blurred vision, a rushing sound in your ears, chest pain, or shortness ofbreath. But even without symptoms, high blood pressure that's not treated raises your risk for heartattack, heart failure, and stroke. High blood pressure is a serious health risk and shouldn't be ignored. 4 General Instructions [facility] [address] [place] [address] Phone #: ext- [phone] 09/22/2019 19:15 Patient: TERE PAULSON Sex: F : 1955 Age: 64yBlood pressure measurements are given as 2 numbers. Systolic blood pressure is the upper number.This is the pressure when the heart contracts. Diastolic blood pressure is the lower number. This isthe pressure when the heart relaxes between beats. You will see your blood pressure readingswritten together. For example, a person with a systolic pressure of 118 and a diastolic pressure of 78will have 118/78 written in the medical record.Blood pressure is categorized as normal, elevated, or stage 1 or stage 2 high blood pressure: Normal blood pressure is systolic of less than 120 and diastolic of less than 80 (120/80) Elevated blood pressure is systolic of 120 to 129 and diastolic less than 80 Stage 1 high blood pressure is systolic is 130 to 139 or diastolic between 80 to 89 Stage 2 high blood pressure is when systolic is 140 or higher or the diastolic is 90 or higherHome careIf you have high blood pressure, you should do what is listed below to lower your blood pressure. Ifyou are taking medicines for high blood pressure, these methods may reduce or end your need formedicines in the future. Begin a weight-loss program if you are overweight. Cut back on how much salt you get in your diet. Here's how to do this: o Don't eat foods that have a lot of salt. These include olives, pickles, smoked meats, and salted potato chips. o Don't add salt to your food at the table. o Use only small amounts of salt when cooking. o Review food labels to track how much salt is in prepared foods. o When eating out, ask that no additional salt be added to your food order. Begin an exercise program. Talk with your healthcare provider about the type of exercise program that would be best for you. It doesn't have to be hard. Even brisk walking for 20 5 General Instructions [facility] [address] [place] [address] Phone #: ext- [phone] 09/22/2019 19:15 Patient: TERE PAULSON Sex: F : 1955 Age: 64y minutes 3 times a week is a good form of exercise. Don't take medicines that have heart stimulants. This includes many ebjq-wmo-flkkldf cold and sinus decongestant pills and sprays, as well as diet pills. Check the warnings about high blood pressure on the label. Before purchasing any ztgr-skf-vkpibdy medicines or supplements, always ask the pharmacist about the product's potential interaction with your high blood pressure and your high blood pressure medicines. Stimulants such as amphetamine or cocaine could be lethal for someone with high blood pressure. Never take these. Limit how much caffeine you get in your diet. Switch to caffeine-free products. Stop smoking. If you are a long-time smoker, this can be hard. Enroll in a stop-smok ing program to make it more likely that you will quit for good. Learn how to handle stress. This is an important part of any program to lower blood pressure. Learn about relaxation methods like meditation, yoga, or biofeedback. If your provider prescribed medicines, take them exactly as directed. Missing doses may cause your blood pressure get out of control. If you miss a dose or doses, check with your healthcare provider or pharmacist about what to do. Consider buying an automatic blood pressure machine. Your provider can make a recommendation. You can get one of these at most pharmacies.The [place] [employer] recommends the following guidelines for home blood pressuremonitoring: Don't smoke or drink coffee or other caffeinated drinks for 30 minutes before taking your blood pressure. Go to the bathroom before the test. Relax for 5 minutes before taking the measurement. Sit with your back supported (don't sit on a couch or soft nadir ir); keep your feet on the floor uncrossed. Place your arm on a solid flat surface (like a table) with the upper part of the arm at heart level. Place the middle of the cuff directly above the bend of the elbow. Check the monitor's instruction manual for an illustration. Take multiple readings. When you measure, take 2 to 3 readings one minute apart and record all of the results. Take your blood pressure at the same time every day, or as your healthcare provider 6 General Instructions [facility] [address] [place] [address] Phone #: ext- [phone] 09/22/2019 19:15 Patient: TERE PAULSON Sex: F : 1955 Age: 64y recommends. Record the date, time, and blood pressure reading. Take the record with you to your next medical appointment. If your blood pressure monitor has a built-in memory, simply take the monitor with you to your next appointment. Call your provider if you have several high readings. Don't be frightened by a single high blood pressure reading, but if you get several high readings, check in with your healthcare provider. Note: When blood pressure reaches a systolic (top number) of 180 or higher OR diastolic (bottom number) of 110 or higher, seek emergency medical treatment.Follow-up careBecause a new blood pressure medicine was started today, it's important that you have your bloodpressure rechecked. This is to make sure that the medicine is working and that you have no seriousside effects. Keep all your follow up appointments. Write down medicine and blood pressurequestions and bring them to your next appointment. If you have pressing concerns about your newmedicine or your blood pressure, call your provider. Unless told otherwise, follow up with yourhealthcare provider or this facility within the next 3 days.When to seek medical adviceCall your healthcare provider right away if any of these occur: Blood pressure reaches a systolic (top number) of 180 or higher, OR diastolic (bottom number) of 110 or higher, seek emergency medical treatment. Chest pain or shortness of breath Severe headache Throbbing or rushing sound in the ears Nosebleed Sudden severe pain in your belly (abdomen) Extreme drowsiness, confusion, or fainting Dizziness or dizziness with a spinning sensation (vertigo) Weakness of an arm or leg or one side of the face You have problems speaking or seeing 7 General Instructions [facility] [address] [place] [address] Phone #: ext- [phone] 09/22/2019 19:15 Patient: TERE PAULSON Sex: F : 1955 Age: 64y [id number] [employer]. [address] [place] [address], [place] [address]. All rights reserved. This information is not intended as asubstitute for professional medical care. Always follow your healthcare professional's instructions. You have been given the following additional information: Headache, Tension Hypertension, New (Begin Treatment) No strenuous activity until better.(Electronically signed by Aguilar Johnson M.D. 09/22/2019 22:14) Name Value Range Interpretation Code Description Data Gnena rce(s) Supporting Document(s) ID Date Data Source [id number] 09/22/2019 07:31:00 PM EDT [facility] 1 Clinical Report - Nurses [facility] [address] [place] [address] Phone #: ext- [phone] 09/22/2019 19:15 Patient: TERE PAULSON Sex: F : 1955 Age: 64yTRIAGEArrived by private vehicle. Historian: patient. ( pt has had HTN for the last 3 weeks and unable to get intoPCP. pt states she has had a massive headache fort he last 15 mins.).Triage time: 19:17 09/22/2019. Acuity: LEVEL 3.Chief Complaint: HEADACHE.Alert.This started 3 weeks. --19:20 09/22/19 Mony Aguilar R.N.19:17 09/22/19. BP: 179/99. HR: 89. RR: 18. O2 saturation: 99%. Temp: 99.1 F. Pain level now 7/10.--19:20 09/22/19 Mony Aguilar R.N.Weight: 90.7 kg. Height/Length: 61 inches. BMI: 37.8. --19:16 09/22/19 Mony Aguilar R.N.MedicationsNone. --19:19 09/22/19 Mony Aguilar R.N.AllergiesNo Known Drug Allergy. --19:19 09/22/19 Mony Aguilar R.N.HistoryPAST MEDICAL HX: Immunizations: up-to-date.SOCIAL HX: Never smoker. No alcohol use or drug use. No recent travel. No known contact with a sickindividual. The patient was offered HIV testing but declined. The patient has not traveled outside the.[place].Infectious disease exposure: No infectious disease exposure. The patient was not exposed to Coronavirus.Patient is not a known carrier of tuberculosis, hepatitis, HIV, MRSA or VRE. Patient is not a known carrierof CRE.SELF HARM ASSESSMENT: Self harm assessment was performed. The patient answered "no" to thequestion(s) "Have you recently felt down, depressed, or hopeless?", "Do you have thoughts of harming orkilling yourself?", "Do you have a plan for harming or killing yourself?", "Have you recently had t houghtsabout harming or killing others?", "Do you have any dangerous items in your possession?", "Have younoticed less interest or pleasure in doing things?", "Are you here because you tried to hurt yourself?" and"Have you ever tried to hurt yourself before today?".ABUSE ASSESSMENT: Abuse assessment. Abuse denied. No suspicion of abuse. No report of abuse.FALL RISK ASSESSMENT: Fall risk assessment completed. No risk factors identified. --1909/22/19Mony Aguilar R.N. 2 Clinical Report - Nurses [facility] [address] [place] [address] Phone #: ext- [phone] 09/22/2019 19:15 [id number] Sex[facility] F : 1955 Age: 64y PAST MEDICAL HX: Negative. --09/22/19 Mony Aguilar R.N. Interventions Identification band on patient. To treatment room. --09/22/19 Mony Aguilar R.N.PHYSICAL ASSESSMENTAmbulatory to room.GENERAL / NEURO / PSYCH: Alert. Oriented X 4. Appears in pain and in distress. Speech withinnormal limits.HEENT: No facial asymmetry noted. Photophobia present. Pupils equal, round and reactive to light.RESPIRATORY: Respirations not labored. Breath sounds within normal limits.CVS: Capillary refill less than 2 seconds.GI / : Abdomen soft and nontender.SKIN: Skin is warm and dry. --19:34 09/22/19 Medardo Plunkett RN.NURSING PROGRESS NOTESMonitoring of patient in place. EKG time: (19:20 09/22/2019). EKG was performed by a tech and shownto the ED physician. Patient gowned. Three patient identifiers checked. --19:20 09/22/19 Mony Aguilar R.N. 19:32 09/22/19. BP: 142/84. MAP: 103. HR: 75. RR: 13. O2 saturation: 98%. --19:32 09/22/19 [facility], Tech1 Monitoring of patient in place. Patient gowned. Head of bed elevated. Reassurance given. Lights dimmed. Call light placed in reach. Side rails up x 2. Bed placed in lowest position. Brakes of bed on. Patient ready for evaluation- ED physician notified. --19:34 09/22/19 Medardo Plunkett RN 19:45 09/22/19. BP: 132/68. MAP: 89. HR: 81. RR: 19. O2 saturation: 96%. --19:46 09/22/19 [facility] Tech1 20:03 09/22/2019 Site #1 started via IV in the left antecubital space with an 20g angiocath, with aseptic technique and good blood return; one attempt. Blood drawn: rainbow set and green tube(s). Sent to the lab. Saline lock flushed with 10 mL saline. --20:04 09/22/19 Medardo Plunkett RN 20:04 09/22/2019 Started bag #1 1000 mL IV Fluids NS; at 1000 mL/hr over 1 hour(s) via site #1 via IV pump. Allergies verified and confirmed 5 rights. IV patency established. IV site checked: no pain, redness, or swelling. IV flushed thoroughly pre- and post- medication administration. Information reviewed with patient including reason for taking this medication. Verbalizes understanding. --20:04 09/22/19 Medardo Plunkett RN 20:04 09/22/2019 Ativan (LORazepam) IVP 2 mg given over 3 minute(s) via site #1. Allergies verified and confirmed 5 rights. IV patency established. IV site checked: no pain, redness, or swelling. IV flushed thoroughly pre- and post-medication administration. IVP given by RN. Information reviewed with patient 3 Clinical Report - Nurses [facility] [address] [place] [address] Phone #: ext- [phone] 09/22/2019 19:15 Patient: TERE PAULSON Sex: F : 1955 Age: 64yincluding reason for taking this medication and sedative warning. Verbalizes understanding. --20: Medardo Plunkett RN20:16 09/22/19. BP: 132/68. MAP: 89. HR: 75. RR: 17. O2 saturation: 98%. --20:16 09/22/19 [facility] 09/22[facility]19. BP: 146/79. MAP: 101. HR: 78. RR: 16. O2 saturation: 98%. Pain level now: 610.--20:33 09/22/19 Medardo Plunkett RN20:09/22/2019 Site #1 relocated to the right wrist with an 22g angiocath, with aseptic technique andgood blood return; one attempt. Saline lock flushed with 10 mL saline (pt stated the IV did not feel right andasked to move it). --20:34 09/22/19 Medardo Plunkett RN20:33 09/22/2019 Ativan IVP Response: pain is improving. Symptoms have improved the patient feelsbetter. --20:33 09/22/19 Medardo Plunkett RN21:08 09/22/2019 IV Fluids NS via IV site #1 Discontinued: bag #1 infused. Total amount infused: 990 mL.IV patency established. IV site checked: no pain, redness, or swelling. IV flushed thoroughly. --21: Medardo Plunkett RN21:09/22/2019 Started bag #1 1000 mL IV Fluids NS; at 1000 mL/hr over 30 minute(s) via site #1 via IVpump. Allergies verified and confirmed 5 rights. IV patency established. IV site checked: no pain, redness,or swelling. IV flushed thoroughly pre- and post-medication administration. Information reviewed withpatient including reason for taking this medication. Verbalizes understanding. --21:09/22/19 JOSSE Malik21:09/22/2019 Morphine IVP 4 mg given over 3 minute(s) via site #1. Allergies verified and confirmed 5rights. IV patency established. IV site checked: no pain, redness, or swelling. IV flushed thoroughly pre-and post-medication administration. IVP given by RN. Information reviewed with patient including reasonfor taking this medication and sedative warning. Verbalizes understanding. --21:09/22/19 Medardo Plunkett RN21:09/22/2019 Zofran (Ondansetron HCl) IVP 4 mg given over 2 minute(s) via site #1. Allergies verifiedand confirmed 5 rights. IV patency established. IV site checked: no pain, redness, or swelling. IV flushedthoroughly pre- and post-medi cation administration. IVP given by RN. Information reviewed with patientincluding reason for taking this medication. Verbalizes understanding. --:09/22/19 Medardo Plunkett RN22:09/22/2019 IV Fluids NS via IV site #1 Discontinued: infused. Total amount infused: 500 mL. IVpatency established. IV site checked: no pain, redness, or swelling. IV flushed thoroughly. --:09/22/19Medardo Plunkett RN22:09/22/2019 Site #1 removed upon discharge. Catheter intact. Manual pressure and bandage applied.--22:09/22/19 Medardo Plunkett RN. 4 Clinical Report - Nurses [facility] [address] [place] [address] Phone #: [phone] ext- [phone] 09/22/2019 19:15 Patient: TERE PAULSON Sex: F : 1955 Age: 64yDISPOSITION / DISCHARGE 20:47 09/22/19. BP: 148/71. MAP: 96. HR: 83. RR: 23. O2 saturation: 95%. Temp: 98 F. --20:47 09/22/19 [facility] Tech, BRIDGET Sykes [facility] Condition at departure: improved and stable. Discharge instructions provided and reviewed with the patient. Reviewed medication(s). Prescription(s) sent electronically to pharmacy. Activity restrictions (rest) reviewed. Patient verbalized understanding. Written instructions provided in [place]. The patient was discharged by the physician. She was discharged home and accompanied by spouse. She left ambulatory and via private vehicle. Spouse driving. --22:11 09/22/19 Medardo Plunkett RN 22:10 09/22/19. BP: 120/68. MAP: 85. HR: 84. RR: 16. O2 saturation: 95%. Pain level now: 04/05. --22:11 09/22/19 Medardo Plunkett RN.Locked/Released at 09/22/2019 22:11 by Medardo Plunkett RN Name Value Range Interpretation Code Description Data Genna rce(s) Supporting Document(s) ID Date Data Source [id number] 09/22/2019 07:31:00 PM EDT [facility] 1 Clinical Report - Physicians/Mid Levels [facility] [address] [place] [address] Phone #: ext- [phone] 09/22/2019 19:15 Patient: TERE PAULSON Sex: F : 1955 Age: 64y Time Seen: 19:20 09/22/2019; initial patient contact. Arrived- By private vehicle. Historian- patient. Disposition decision: 22:07 09/22/2019.HISTORY OF PRESENT ILLNESS Chief Complaint: HEADACHE. Is still present. Onset during emotional upset; crying excessively from putting down her pet dog. This started just prior to arrival 15 minutes ago. It was gradual in onset and has been constant. It is described as "pain" and pressure. Described as a global headache and located in the frontal region. No neck pain. Not located in the facial region. At its maximum, severity described as severe and 10 / 10. When seen in the E.D., severity described as severe and 10 / 10. Modifying factors: worsened by moving head and general movement; relieved by nothing. No preceding symptoms, blurred vision, photophobia, associated nausea or numbness. No weakness or vomi ting. 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 No recent travel. Similar symptoms previously. Patient has had similar symptoms occasionally. Recent medical care: Not recently seen/assessed.REVIEW OF SYSTEMSNo fever, muscle aches, sinus pressure, ear pain or sore throat. No carbon monoxide exposure, tick bite,head injury, chest pain or difficulty breathing. No cough, abdominal pain, diarrhea, pain with urination orskin rash. No enlarged lymph nodes or back pain. All other systems reviewed and are negative.PAST HISTORYSee nurses notes. Problems: Hypertension. Medications: None. Allergies: No Known Drug Allergy.SOCIAL HISTORYNever smoker. No alcohol use or drug use. 2 Clinical Report - Physicians/Mid Levels [facility] [address] [place] [address] Phone #: ext- [phone] 09/22/2019 19:15 Patient: TERE PAULSON Sex: F : 1955 Age: 64yADDITIONAL NOTESThe nursing notes have been reviewed with agreement regarding the chief complaint, HPI, ROS, PMH andpatient medications and allergies.PHYSICAL EXAMVital Signs: 09/22/2019 19:32 BP: 142/84. MAP: 103. HR: 75. RR: 13. O2 saturation: 98%.09/22/2019 19:17 BP: 179/99. MAP: 125. HR: 89. RR : 18. O2 saturation: 99%. Temp: 99.1 F. Have beenreviewed. Oxygen saturation normal.Appearance: Anxious. Appears to be in pain. Patient in mild distress. Distress appears due to pain.(tearful).Eyes: Pupils equal, round and reactive to light. Eyes normal inspection. No photophobia.ENT: Ears normal. Nose normal. Pharynx normal.Neck: Normal inspection. Neck supple. No meningeal signs.CVS: Normal heart rate and rhythm. Heart sounds normal. Pulses normal.Respiratory: No respiratory distress. Painless inspiration. Breath sounds normal.Abdomen: Soft and nontender. No organomegaly.Back: Normal inspection.Skin: Skin warm and dry. Normal skin color. No rash. Normal skin turgor.Extremities: Extremities exhibit normal ROM. No lower extremity edema.Neuro: Oriented X 3. Alert. Mood/affect normal. Speech normal. Cranial nerves normal (as tested).No cerebellar findings. No motor deficit. No sensory deficit. Reflexes normal.LABS, X-RAYS, AND EKGEKG: No acute process. No acute ischemia. Normal EKG. Normal sinus rhythm. Rate: 80/min.Normal ST and T waves. Prior EKG unavailable. The study has been interpreted contemporaneously byme. The EKG appears to be a good tracing. Interpretation time: 19:24 09/22/2019.CT Head: Normal study. No acute changes. Head CT performed without contrast. The study wasinterpreted by the radiologist. Interpretation time: 20:12 09/22/2019.Laboratory Tests: Laboratory tests have been ordered, with results reviewed and considered in themedical decision making process. CBC w Diff: (KANDICE: 09/22/2019 19:40) ( MsgRcvd 09/22/2019 20:24) Final results Test Result Flag Units (Reference) CBC W/AUTOMATED DIFF COMPLETE BLOOD COUNT WBC 8.7 10/uL (4.2 - 11.0) RBC 4.89 10/uL (4.20 - 5.40) HEMOGLOBIN 15.6 g/dL (12.0 - 16.0) HEMATOCRIT 45.3 % (37.0 - 47.0) MCV 92.6 fL (81.0 - 101) MCH 31.9 pg (27.0 - 34.0) MCHC 34.4 g/dL (31.0 - 36.0) RDW 12.5 % (11.5 - 14.5) PLATELETS 142 L 10/uL (150 - 450) MPV 11.2 H fL (7.4 - 10.4) NEUT 74.7 % (37.0 - 80.0) LYMPH 16.4 L % (25.0 - 40.0) 3 Clinical Report - Physicians/Mid Levels [facility] [address] [place] [address] Phone #: ext- [phone] 09/22/2019 19:15 Patient: TERE PAULSON Sex: F : 1955 Age: 64y MONO 6.1 % (3.0 - 8.0) EOS 1.5 % (0.0 - 7.0) BASO 0.8 % (0.0 - 2.5) %IG 0.5 H % (0.0 - 0.0) %NRBC 0.0 % (0.0 - 0.0) #NEUT 6.50 10/uL (2.00 - 6.90) #LYMPH 1.43 10/uL (0.60 - 3.40) #MONO 0.53 10/uL (0.00 - 0.90) #EOS 0.13 10/uL (0.00 - 0.70) #BASO 0.07 10/uL (0.00 - 0.20) #IG 0.04 10/uL (0.00 - 0.10) #NRBC 0.00 10/uL (0.00 - 0.00) MANUAL DIFF NOT INDICATED RBC MORPH SEE BELOW ANISO 1+ A (NORMAL: NONE { SICKLE CELL (NORMAL: NONE SEEN ) COMMENT: CMP: (KANDICE: 09/22/2019 19:40) ( MsgRcvd 09/22/2019 20:18) Final results Test Result Flag Units (Reference) COMPREHENSIVE METABOLIC PANEL COMPREHENSIVE METABOLIC PANEL SODIUM 140 mEq/L (134 - 153) POTASSIUM 4.4 mEq/L (3.6 - 5.0) CHLORIDE 103 mEq/L (98 - 107) CO2 24 MEQ/L (22 - 30) GLUCOSE 112 H MG/DL (65 - 110) BUN 9 MG/DL (7 - 21) CREATININE 0.7 MG/DL (0.7 - 1.5) BUN/CREAT 13 (8 - 27) TOTAL PROTEIN 7.4 G/DL (6.3 - 8.2) ALBUMIN 4.3 G/DL (3.9 - 5.0) GLOBULIN 3.1 GM/DL (2.4 - 3.2) A/G RATIO 1.4 (0.8 - 2.0) CALCIUM 9.3 MG/DL (8.4 - 10.2) TOTAL BILI <0.7 MG/DL (0.2 - 1.3) ALKALINE PHOS 106 U/L (38 - 126) SGOT/AST 20 U/L (5 - 40) SGPT/ALT 19 U/L (7 - 56) ANION GAP 13.0 mmol/L (8.0 - 16.0) AGE 64 yrs NON-AA GFR >60 mL/min AFR AMER GFR >60 Male GFR Interprentation 20-49 yrs >60 mL/min Wlvxes58-16 yrs >56 mL/min Normal 60-69 yrs >49 mL/min Normal 70-79yrs>42 mL/min Normal 80 and above >35 mL/min Normal Female GFRInterpretation 20-39 yrs >60 mL/min Normal 40-49 yrs >58 mL/minNormal 50- 59 yrs >51 mL/min Normal 60-69 yrs >45 mL/min Gbzdbw73-30 yrs >39 mL/min Normal 80 and above >32 mL/min NormalTroponin-T: (KANDICE: 09/22/2019 19:40) ( MsgRcvd 09/22/2019 20:18) Final results Test Result Flag Units (Reference) TROPONIN T <0.01 NG/ML (0.00 - 0.10) TROPONIN T0.1 ng/ml Recommended as the clinical threshold value forTroponin T. 4 Clinical Report - Physicians/Mid Levels [facility] [address] [place] [address] Phone #: ext- [phone] 09/22/2019 19:15 Patient: TERE PAULSON Sex: F : 1955 Age: 64y CT Head W/O Cont: (KANDICE: 09/22/2019 19:33) ( MsgRcvd 09/22/2019 19:56) In Progress CT HEAD W/O CONTRAST Reason(s): Headache TRANSPORTATION: IV? O2? Oxygen?(No) Room: ED.PROGRESS AND PROCEDURESCourse of Care: 20:15 09/22/19. CT head w/o results nml, workup pending, pt doing better, BP nml 20:40 09/22/19. workup all in and reviewed and nml; MCCLURE much better, BP nml; will d/c w instructions; advised to f/u w LEAD SOFTWARE TEST ENGINEER in next few days 21:02 09/22/19. pt was about to be d/c and frontal MCCLURE came back, going down her face; will repeat EKG and treat her pain 21:15 09/22/19. EKG #2 is identical to 1st one at 19:20 hrs w NSR 87/min, NAD 22:06 09/22/19. MCCLURE is now gone, pt feeling much better, wants to go home; d/c instructions given again; BP nml. Patient counseled in person regarding the patient's stable condition, test results, diagnosis and need for follow-up. Patient agrees with plan of care. Disposition: Condition: good and stable. Discharge decision based on the following: patient's condition is stable; patient's condition is improved; patient is ambulatory; patient is active; patient drinking fluids; patient's pain is controlled; patient's exam is improved; no abnormal test results; improving condition on multiple repeat evaluations; social support is good; transportation is available; follow-up is available; clinical impression is consistent with outpatient treatment.CLINICAL IMPRESSION Essential hypertension. Episodic tension-type headache. Not resistant to treatment.INSTRUCTIONS No strenuous activity until better. Do not smoke. No alcohol. (PLEASE TAKE YOUR BLOOD PRESSURE 3-4 TIMES PER DAY AND MAKE NOTES OF THEM IN 5 Clinical Report - Physicians/Mid Levels [facility] Emergency Department [address] [place] [address] Phone #: [phone] 09/22/2019 19:15 Patient: TERE PAULSON Sex: F : 1955 Age: 64y BOOK FOR YOUR FAMILY MD TO REVIEW). Warnings: Further evaluation is necessary. It is very important to follow up with a healthcare provider. GENERAL WARNINGS: Return or contact your physician immediately if your condition worsens or changes unexpectedly, if not improving as expected, or if other problems arise. SPECIFICALLY, return if you develop fever, vomiting, numbness, weakness, difficulty thinking, visual disturbances, fainting or extreme fatigue. Your Current Medications: . No home medication. Prescription Medications: Reglan 10 mg tablet Take 1 tablet four times a day as needed for 7 days -- Dispense 28 tablet. Refills: 2. Substitution permitted. Pharmacy - [id number] - [address] ; [place], [place] [id number]. . Follow-up: Return to the emergency department as needed. Follow up with your healthcare provider in two days even if well. Call for an appointment. Reason for referral: evaluation and treatment. Summary of care provided to patient via paper. Understanding of the discharge instructions verbalized by patient. Expected course of illness, discharge instructions, activity level, diet, prescriptions x1, follow-up appointment and risks and benefits of treatment reviewed with patient and spouse and understanding verbalized. Agrees to plan of care.(Electronically signed by Aguilar Johnson M.D. 09/22/2019 22:14) Name Value Range Interpretation Code Description Data [facility]) Supporting Document(s) ID Date Data Source [id number] 09/22/2019 08:24:00 PM EDT [facility] Name Value Range Interpretation Code Description Data [facility]) Supporting Document(s) CBC W/AUTOMATED DIFF [facility] COMPLETE BLOOD COUNT Leukocytes [#/volume] in Blood by Automated count 8.7 10^3/uL 4.2 - 1 1.0 [facility] Erythrocytes [#/volume] in Blood by Automated count 4.89 10^6/uL 4. 20 - 5.40 [facility] Hemoglobin [Mass/volume] in Blood 15.6 g/dL 12.0 - 16.0 [facility] Hematocrit [Volume Fraction] of Blood by Automated count 45.3 % 3 7.0 - 47.0 [facility] Erythrocyte mean corpuscular volume [Entitic volume] by Auto mated count 92.6 fL 81.0 - 101 [facility] Erythrocyte mean corpuscular hemoglobin [Entitic mass] by Automated count 31.9 pg 27.0 - 34.0 [facility] Erythrocyte mean corpuscular hemoglobin concentration [Mass/volume] by Automated count 34.4 g/dL 31.0 - 36.0 [facility] Erythrocyte distribution width [Ratio] by Automated count 12.5 % 11.5 - 14.5 [facility] Platelets [#/volume] in Blood by Automated count 142 10^3/uL 150 - 45 0 L [facility] Platelet mean volume [Entitic volume] in Blood by Automated count 11.2 fL 7.4 - 10.4 H [facility] Neutrophils/100 leukocytes in Blood by Automated count 74.7 % 37. 0 - 80.0 [facility] Lymphocytes/100 leukocytes in Blood by Manual count 16.4 % 25.0 - 40.0 L [facility] Monocytes/100 leukocytes in Blood by Automated count 6.1 % 3.0 - 8.0 [facility] Eosinophils/100 leukocytes in Blood by Automated count 1.5 % 0.0 - 7.0 [facility] Basophils/100 leukocytes in Blood by Automated count 0.8 % 0.0 - 2.5 [facility] %IG 0.5 % 0.0 - 0.0 [facility] %[facility].0 % 0.0 - 0.0 [facility] al Neutrophils [#/volume] in Blood by Automated count 6.50 10^3/uL 2.00 - 6.90 [facility] Lymphocytes [#/volume] in Blood by Automated count 1.43 10^3/uL 0.60 - 3.40 [facility] Monocytes [#/volume] in Blood by Automated count 0.53 10^3/uL 0.00 - 0.90 [facility] Eosinophils [#/volume] in Blood by Automated count 0.13 10^3/uL 0.00 - 0.70 [facility] Basophils [#/volume] in Blood by Automated count 0.07 10^3/uL 0.00 - 0.20 [facility] #IG 0.04 10^3/uL 0.00 - 0.10 [facility] #NRBC 0.00 10^3/uL 0.00 - 0.00 [facility] ospital MANUAL DIFF NOT INDICATED [facility] RBC MORPH SEE BELOW [facility] al Anisocytosis [Presence] in Blood by Light microscopy 1+ CADY L: NONE SEEN A [facility] { SICKLE CELL (NORMAL: NONE SEEN ) COMMENT: ID Date Data Source [id number] 09/22/2019 08:18:00 PM EDT [facility] Name Value Range Interpretation Code Description Data Genna rce(s) Supporting Document(s) TROPONIN T <0.01 NG/ML 0.00 - 0.10 [facility] ospital TROPONIN T0.1 ng/ml Recommended as the c linical threshold value forTroponin T. ID Date Data Source [id number] 09/22/2019 08:18:00 PM EDT [facility] Name Value Range Interpretation Code Description Data Genna rce(s) Supporting Document(s) COMPREHENSIVE METABOLIC PANEL [facility] COMPREHENSIVE METABOLIC PANEL Sodium [Moles/volume] in Serum or Plasma 140 mEq/L 134 - 153 [facility] Potassium [Moles/volume] in Serum or Plasma 4.4 mEq/L 3.6 - 5.0 [facility] Chloride [Moles/volume] in Serum or Plasma 103 mEq/L 98 - 107 [facility] Carbon dioxide, total [Moles/volume] in Serum or Plasma 24 MEQ/L 22 - 30 [facility] Glucose [Mass/volume] in Serum or Plasma 112 MG/DL 65 - 110 H [facility] BUN 9 MG/DL 7 - 21 [facility] al Creatinine [Mass/volume] in Serum or Plasma 0.7 MG/DL 0.7 - 1.5 [facility] BUN/CREAT 13 8 - 27 [facility] Protein [Mass/volume] in Serum or Plasma 7.4 G/DL 6.3 - 8.2 [facility] Albumin [Mass/volume] in Serum or Plasma 4.3 G/DL 3.9 - 5.0 [facility] Globulin [Mass/volume] in Serum by calculation 3.1 GM/DL 2.4 - 3.2 [facility] A/G RATIO 1.4 0.8 - 2.0 [facility] Calcium [Mass/volume] in Serum or Plasma 9.3 MG/DL 8.4 - 10.2 [facility] Bilirubin.total [Mass/volume] in Serum or Plasma <0.7 MG/DL 0.2 - 1.3 [facility] Alkaline phosphatase [Enzymatic activity/volume] in Serum or Plasma 106 U/L 38 - 126 [facility] Aspartate aminotransferase [Enzymatic activity/volume] in Serum or Plasma 20 U/L 5 - 40 [facility] Alanine aminotransferase [Enzymatic activity/volume] in Seru m or Plasma 19 U/L 7 - 56 [facility] Anion gap 3 in Serum or Plasma 13.0 mmol/L 8.0 - 16.0 [facility] AGE [address] [facility] al NON-AA GFR >60 mL/min [facility] ital AFR AMER GFR >60 [facility] Male GFR In terprentation 20-49 yrs >60 mL/min Normal 50-59 yrs >56 mL/min Normal 60-69 yrs >49 mL/min Normal 70-79yrs >42 mL/min Normal 80 and above >35 mL/min Normal Female GFR Interpretation 20-39 yrs >60 mL/min Normal 40-49 yrs >58 mL/min Normal 50-59 yrs >51 mL/min Normal 60-69 yrs >45 mL/min Normal 70-79 yrs >39 mL/min Normal 80 and above >32 mL/min Normal ID Date Data Source LIPID PANEL (CARDIAC RISK) 09/07/2019 11:48:36 AM EDT eCW1 ( [facility]) Name Value Range Interpretation Code Description Data Genna rce(s) Supporting Document(s) Triglyceride [Mass/volume] in Serum or Plasma by calculation 204 eCW1 ([facility]) Cholesterol in LDL [Mass/volume] in Serum or Plasma by calculation 83 eCW1 ([facility]) Cholesterol in HDL [Moles/volume] in Serum or Plasma 44 eCW1 ([facility]) Cholesterol [Moles/volume] in Serum or Plasma 168 eCW1 ([facility]) 3.818 eCW1 ([facility]) 124 eCW1 ([facility]) ID Date Data Source [id number] 09/07/2019 11:48:36 AM EDT eCW1 ([facility]) Name Value Range Interpretation Code Description Data Genna rce(s) Supporting Document(s) Hemoglobin A1c/Hemoglobin.total in Blood 5.4 eCW1 ([facility]) ID Date Data Source FREE T4 & TSH PANEL 09/07/2019 11:48:36 AM EDT eCW1 ([facility]) Name Value Range Interpretation Code Description Data Genna rce(s) Supporting Document(s) 0.535 eCW1 ([facility]) 1.12 eCW1 ([facility]) ID Date Data Source Comprehensive Metabolic Profile (CMP) 09/07/2019 11:48:36 AM EDT eCW1 ([facility]) Name Value Range Interpretation Code Description Data Genna rce(s) Supporting Document(s) 10 eCW1 ([facility]) 96 eCW1 ([facility]) > 60.0 eCW1 ([facility]) 0.81 eCW1 ([facility]) 140 eCW1 ([facility]) 4.1 eCW1 ([facility]) 110 eCW1 ([facility]) 26 eCW1 ([facility]) 29 eCW1 ([facility]) 19 eCW1 ([facility]) 8.8 eCW1 ([facility]) 98 eCW1 ([facility]) 0.6 eCW1 ([facility]) 6.9 eCW1 ([facility]) 3.6 eCW1 ([facility]) 1.1 eCW1 ([facility]) ID Date Data Source CBC - Complete Blood Count 09/07/2019 11:48:36 AM EDT eCW1 ( [facility]) Name Value Range Interpretation Code Description Data Genna rce(s) Supporting Document(s) 6.4 eCW1 ([facility]) 4.74 eCW1 ([facility]) 15.2 eCW1 ([facility]) 46.3 eCW1 ([facility]) 97.7 eCW1 ([facility]) 32.1 eCW1 ([facility]) 32.8 eCW1 ([facility]) 264 eCW1 ([facility]) 12.3 eCW1 ([facility]) Procedure Social History Code Duration Value Status Description Data Source(s ) Smoking 01/18/2020 12:00:00 AM EST Former Smoker completed Former Smoker eCW1 ([facility]) Smoking 01/18/2020 12:00:00 AM EST Former Smoker completed Former Smoker eCW1 ([facility]) Smoking 01/18/2020 12:00:00 AM EST Former Smoker completed Former Smoker eCW1 ([facility]) Smoking 01/18/2020 12:00:00 AM EST Former Smoker completed Former Smoker eCW1 ([facility]) Smoking 10/18/2019 12:00:00 AM EDT Patient has never smoked co mpleted Patient has never smoked MEDENT ([facility]) Smoking 09/07/2019 12:00:00 AM EDT Former Smoker completed Former Smoker eCW1 ([facility]) Smoking 09/07/2019 12:00:00 AM EDT Former Smoker completed Former Smoker eCW1 ([facility]) Smoking 09/07/2019 12:00:00 AM EDT Former Smoker completed Former Smoker eCW1 ([facility]) Vital Signs ID Date Data Source UNK Name Value Range Interpretation Code Description Data Source(s) Body mass index (BMI) [Ratio] 38.8 kg/m2 38.8 k g/m2 MED[facility] ([facility]) Body weight 212.00 [lb_av] 212.00 [lb_av] MEDEN T ([facility]) Body height 62 [in_i] 62 [in_i] MEDENT ([facility]) 5'2" Body temperature 96.9 [degF] 96.9 [degF] MEDENT ([facility]) Diastolic blood pressure 78 mm[Hg] 78 mm[Hg] eCW1 ([facility]) Systolic blood pressure 142 mm[Hg] 142 mm[Hg] e CW1 ([facility]) Body mass index (BMI) [Ratio] 40.36 kg/m2 40.36 kg/m2 eCW1 ([facility]) Body height [in_i] eCW1 ([facility]) Body weight 215.4 [lb_av] 215.4 [lb_av] eCW1 ([facility]) Body mass index (BMI) [Ratio] 37.8 kg/m2 37.8 k g/m2 MED[facility] ([facility]) Body height 61 [in_i] 61 [in_i] MEDENT ([facility]) 5'1" Body weight 200.00 [lb_av] 200.00 [lb_av] MEDEN T ([facility]) Body temperature 97.7 [degF] 97.7 [degF] MEDENT ([facility], [facility]) Oxygen saturation in Arterial blood by Pulse oximetry 97 % 97 % MEDENT ([facility], [facility]) Respiratory rate 12 /min 12 /min MEDENT ( [facility], [facility]) Heart rate 83 /min 83 /min MED[facility] ([facility], [facility]) Diastolic blood pressure 92 mm[Hg] 92 mm[Hg] MEDENT ([facility], [facility]) Systolic blood pressure 161 mm[Hg] 161 mm[Hg] M EDENT ([facility], [facility]) Body mass index (BMI) [Ratio] 37.8 kg/m2 37.8 k g/m2 MED[facility] ([facility], [facility]) Body height 61 [in_i] 61 [in_i] MEDENT ([facility], [facility]) 5'1" Body weight 200.00 [lb_av] 200.00 [lb_av] MEDEN T ([facility], [facility]) Body temperature 98.1 [degF] 98.1 [degF] MEDENT ([facility], [facility]) Oxygen saturation in Arterial blood by Pulse oximetry 97 % 97 % MEDENT ([facility], [facility]) Respiratory rate 16 /min 16 /min MEDENT ( [facility], [facility]) Heart rate 77 /min 77 /min MED[facility] ([facility], [facility]) Diastolic blood pressure 93 mm[Hg] 93 mm[Hg] MEDENT ([facility], [facility]) Systolic blood pressure 173 mm[Hg] 173 mm[Hg] M EDENT ([facility], [facility]) Diastolic blood pressure 92 mm[Hg] 92 mm[Hg] eCW1 ([facility]) Systolic blood pressure 168 mm[Hg] 168 mm[Hg] e CW1 ([facility]) Body temperature 98.4 [degF] 98.4 [degF] eCW1 ( [facility]) Respiratory rate 18 /min 18 /min eCW1 ([facility]) Heart rate 85 /min 85 /min eCW1 ([facility]) Body mass index (BMI) [Ratio] 41.45 kg/m2 41.45 kg/m2 eCW1 ([facility]) Body height [in_i] eCW1 ([facility]) Body weight 221.2 [lb_av] 221.2 [lb_av] eCW1 ([facility]) Diastolic blood pressure 80 mm[Hg] 80 mm[Hg] eCW1 ([facility]) Systolic blood pressure 142 mm[Hg] 142 mm[Hg] e CW1 ([facility]) Body temperature 98.5 [degF] 98.5 [degF] eCW1 ( [facility]) Respiratory rate 18 /min 18 /min eCW1 ([facility]) Heart rate 95 /min 95 /min eCW1 ([facility]) Body mass index (BMI) [Ratio] 41.19 kg/m2 41.19 kg/m2 eCW1 ([facility]) Body height [in_i] eCW1 ([facility]) Body weight 219.8 [lb_av] 219.8 [lb_av] eCW1 ([facility]) Diastolic blood pressure 72 mm[Hg] 72 mm[Hg] eCW1 ([facility]) Systolic blood pressure 136 mm[Hg] 136 mm[Hg] e CW1 ([facility]) Body mass index (BMI) [Ratio] 41.41 kg/m2 41.41 kg/m2 eCW1 ([facility]) Body height [in_us] eCW1 ([facility]) Body weight Measured 221 [lb_av] 221 [lb_av] eC W1 ([facility]) Patient Treatment Plan of Care Planned Activity Planned Date Details Description Data Source (s) Lisinopril 10 MG Oral Tablet 01/28/2020 12:00:00 AM EST eCW1 ([facility]) Lisinopril 10 MG Oral Tablet 01/28/2020 12:00:00 AM EST eCW1 ([facility]) Lisinopril 10 MG Oral Tablet 01/28/2020 12:00:00 AM ALEXIS eCW1 ([facility])
[2020-03-27] MEDS ORDERED: LISI10TA22 PO (09:51)
--- OUTSIDE RECORDS SUMMARY | 2020-03-27 11:02 | CCD ---
Author Author [facility] Organization [facility] Address Unknown Phone Unavailable Care Team Providers Care Electrical Sign Servicer Name Role Phone BRODY PA-C, [phone] A. RALEIGH PA Unavailable Unava ilable BRODY PA-C, [phone] A. RALEIGH PA Unavailable Unava ilable BRODY PA-C, [phone] A. RALEIGH PA Unavailable Unava ilable BRODY PA-C, [phone] A. RALEIGH PA Unavailable Unava ilable BRODY PA-C, [phone] A. RALEIGH PA Unavailable Unava ilable BRODY PA-C, [phone] A. RALEIGH PA Unavailable Unava ilable BRODY PA-C, [phone] A. RALEIGH PA Unavailable Unava ilable TURRIN, [...] A ISIDRO PA Unavailable Unavailable LETTIERE, A IISDRO PA Unavailable Unavailable LETTIERE, A ISIDRO PA [...] is protected by Article 27-F of the [facility] Public Health law. If you continue you may have access to information: Regarding HIV / AIDS; Provided by facilities licensed or operated by the [facility] Office of Mental Health; or Provided by the [facility] Office for People With Developmental Disabilities. If such information is present, then the following [facility] mandated warning applies: This information has been [...] law may result in a fine or mcfp sentence or both. A general authorization for the release of medical or other information is NOT sufficient authorization for further disc losure. Family History Family Member Name Family Member Gender Family Member Status Date o f Status Description Data Source(s) Unknown Unknown Problem MEDENT ([facility], [facility]) Encounters Encounter Providers Location Date Indications Data Source(s ) Unknown [address] [facility] [place] [address] 02/02/2020 12:00:00 AM EST eCW1 ([facility]) Unknown [address] [facility] [place] [address] 01/28/2020 12:00:00 AM EST eCW1 ([facility]) Unknown [address] [facility] [place] [address] 01/28/2020 12:00:00 AM EST eCW1 ([facility]) [place] [address] [facility] [address] 01/18/2020 12:00:00 AM EST eCW1 ([facility]) [place] [address] [facility] [address] 11/16/2019 12:00:00 AM EDT eCW1 ([facility]) Outpatient Attender: JOSEPHINE Candelarioa ry 10/18/2019 04:50:00 PM EDT MEDENT ([facility]) Outpatient Attender: ISIDRO Candelario everardo 09/27/2019 11:50:00 AM EDT MEDENT ([facility]) Emergency Attender: AGUILAR JOHNSONConsultant: [id number] RALEIGH SKINNER PA-C 09/22/2019 07:31:00 PM EDT - 09/22/2019 10:11:00 PM EDT [facility] Patient discharged. [place] [address] [facility] [address] 09/07/2019 12:00:00 AM EDT eCW1 ([facility]) [place]patient [address] [facility] [address] 08/12/2019 12:00:00 AM EDT eCW1 ([facility]) [facility] [address] [place] [address] 06/14/2019 12:00:00 AM EDT eCW1 ([facility]) Medications Medication Brand Name Start Date Product [...] {tablet} active Lisinopril 10 MG eCW1 ( [facility]) Lisinopril 10 MG Oral Tablet Lisinopril 10 MG 01/28/2020 12:00:00 A M EST 1.0 {tablet} active Lisinopril 10 MG eCW1 ( [facility]) Lisinopril 10 MG Oral Tablet Lisinopril 10 MG 01/28/2020 12:00:00 A M EST 1.0 {tablet} active Lisinopril 10 MG eCW1 ( [facility]) Lisinopril 10 MG Oral Tablet LISINOPRIL 11/10/2019 [...] 10/18/2019 12:00:00 AM EDT active M EDENT ([facility], [facility]) No Active Medications 09/27/2019 12:00:00 AM EDT completed MEDENT ([facility]) 5 mg 09/27/2019 12:00:00 AM EDT tablet [...] TIMES A DAY NEEDED SO LD: 09/23/2019 [facility] Insurance Providers Payer name Policy type / Coverage type Policy ID Covered democrat ID Covered democrat's relationship to moura Policy Moura Plan Information [employer] [place] [id number] SP [id number] [employer] [place] O [id number] O [id number] [employer] BEN[employer] PLAN-O/P [id number] 18 [id number] [employer] PLAN [id number] SP [id number] [facility] MAIL HANDLERS BENEF O [id number] O [id number] [employer]EN[employer] PLAN [id number] SP [id number] [employer] Ppo/Pos/Nap/MC Commercial [id number] Self [id number] [facility] MAIL HANDLERS BENEF O [id number] S [id number] [employer] BENEFIT PLAN [id number] SP [id number] Problems, Conditions, and Diagnoses Code Display Name Description Problem Type Effective Dates Data Source(s) K21.9 [id number] Gastroesophageal reflux disease without e sophagitis Problem 08/12/2019 12:00:00 AM EDT eCW1 ([facility]) I10 Essential (primary) hypertension Essential (primary) h ypertension Diagnosis 09/22/2019 07:31:00 PM EDT [facility] [id number] Episodic tension-type headache, not intr actable Episodic tension-type headache, not intractable Diagnosis 09/22/2019 07:31:00 PM EDT [facility] R51 Headache Headache Diagnosis 09/22/2019 07:31:00 PM ED T [facility] Surgeries/Procedures Procedure Description Date Indications Data Source(s) Therapeutic, Prophylactic Or Diagnostic Injection Subq/Im 10/18/2019 12:00:00 AM EDT MEDENT ([facility]) Results ID Date Data Source [id number] 09/23/2019 03:12:00 PM EDT [facility] [address] [place] [address] PHONE: [phone] FAX: [phone] Name .................. : KHURRAM CARRANZA Acct Number.................. : [id number] ROOM. ................. : [facility] MR Number ................... : [id number] Stay type ............. : E/R Discharge Date......... ... : 09/22/19 Admit Date ....... .. : 09/22/19 Admit Phys .................... : ALEX CHAPA Date of ....... : 1955 Family Phys ................... : BRODY PETER Phone .................. : [phone] Age ................................ : 64 Film# .................. .:[id number] Sex ................................. : F Unsigned transcriptions are preliminary reports and do not represent a medical or legal document CT HEAD W/O CONTRAST 56159 COMPLETE:09/22/19 19:56 KJE 47349 Reason(s): Headache CT OF THE HEAD WITHOUT [...] rce(s) Supporting Document(s) ID Date Data Source [id number] 09/23/2019 01:00:00 PM EDT [address] [place] [address] RESPIRATORY CARE REPORT ==== ---------NAME------- NUMBER SEX AGE ADMIT DISC. XRAY# F/C TYPEBURNSSTEPHENS TERE [id number] F 64 09/22/19 09/22/19 [id number] IBD E/R DATE OF : 1955 M/R# [id number] #: [id number] TR-07 LOCATION: EMERGENCY DEPT EKG 21345 COMPLE TE:09/23/19 01:17 VMT 19462 PHYSICIAN: ALEX CHAPA Name Value Range Interpretation Code Description Data Genna rce(s) Supporting Document(s) ID Date Data Source [id number] 09/23/2019 12:59:00 PM EDT [address] [place] [address] RESPIRATORY CARE REPORT ==== ---------NAME------- NUMBER SEX AGE ADMIT DISC. XRAY# F/C ROSE CARRANZA [id number] F 64 09/22/19 09/22/19 [id number] IBD E/R DATE OF : 1955 M/R# [id number] #: [id number] TR-07 LOCATION: EMERGENCY DEPT EKG 22977 [facility] TE:09/23/19 01:17 T 41465 PHYSICIAN: ALEX CHAPA Name Value Range Interpretation Code Description Data Genna rce(s) Supporting Document(s) ID Date Data Source [id number] 09/22/2019 07:31:00 PM EDT [facility] 1 OrderSheet [facility] Emergency Department [address] [place] [address] Phone #: ext- [phone] 09/22/2019 19:15 Patient: [...] mg 19:27 09/22/2019 20:04 Medardo(HIGH ALERT Aguilar Johnson RNMEDICATION) Jessica;Morphine IVP 4 mg 21:04 09/22/2019 21:09 Medardo(HIGH ALERT Aguilar Johnson RNMEDICATION) Jessica;Zofran 4 mg IVP X 1 21:09/22/2019 21:10 Medardodose: 4 mg (NOW Aguilar Johnson RNx1) Jessica; 2 OrderSheet [facility] Emergency Department [address] [place] [address] Phone #: ext- [phone] 09/22/2019 19:15 -- Patient: TERE PAULSON Sex: F : 1955 Age: 64yGENERAL ORDERSOrder Description Priority Entered Acknowledged InitialedBlood Pressure 19:09/22/2019 19:34 Aguilar Hallman RN, M.D.;Glass Vial Filler 19:09/22/2019 19:34 Medardo(continuous) Aguilar Johnson RN, M.D.;EKG [...] rce(s) Supporting Document(s) ID Date Data Source [id number] 09/22/2019 07:31:00 PM EDT [facility] 1 Medication Reconciliation Report [facility] Emergency Department [address] [place] [address] Phone #: [phone]- [phone] 09/22/2019 19:15 Patient: TERE PAULSON Sex: F [...] Dispense 28 tablet. Refills: 2.Substitution permitted.Pharmacy - [facility] [address] [place], [place] [phone]. . -- Aguilar Johnson M.D. Name Value Range Interpretation Code Description Data Genna rce(s) Supporting Document(s) ID Date Data Source [id number] 09/22/2019 07:31:00 PM EDT [facility] 1 Medication Administration Record [facility] Emergency Department [address] [place] [address] Phone #: ext- [phone] 09/22/2019 19:15 Patient: TERE PAULSON Sex: F : 1955 Age: 64yWeight: 90.7 kgHeight/Length: 61 inBMI: 37.8ALLERGIES: No Known Drug Allergy Date/Time Medication Administered Medication OrderedStart NS [IV] NS IV 1000 mL Bolus: : Bolus 395655:04 09/22/2019 Dose: IV Fluids mL (X1)Medardo Plunkett RN Rate: 1000 mL/hr over 1 hour(s)---- Dispensed: 1000 mL bagStop Site: #1 left AC21:08 09/22/2019PeLesa Spears NS [IV] NS IV 1000 mL Bolus: : Bolus [id number]:09 09/22/2019 Dose: IV Fluids mL (X1)Medardo Plunkett [...] rce(s) Supporting Document(s) ID Date Data Source [id number] 09/22/2019 07:31:00 PM EDT [facility] 1 General Instructions [facility] Emergency Department [address] [place] [address] Phone #: ext- [phone] 09/22/2019 19:15 Patient: [...] Dispense 28 tablet. Refills: 2.Substitution permitted.Pharmacy - [facility] - [address] [facility] ; [place], [place] [phone]. .Follow-up:Return to the emergency department as needed. [...] INFORMATIONTension Headache 2 General Instructions [facility] Emergency Department [address] [place] [address] Phone #: ext- [phone] 09/22/2019 19:15 Patient: TERE PAULSON Sex: F [...] relax. Heat 3 General Instructions [facility] Emergency Department [address] [place] [address] Phone #: ext- [phone] 09/22/2019 19:15 Patient: [...] You have difficulty speaking Your vision changes [id number] [employer]. [address] [place] [address], [place] [address]. All rights reserved. This information is not [...] be ignored. 4 General Instructions [facility] Emergency Department [address] [place] [address] Phone #: ext- [phone] 09/22/2019 19:15 Patient: TERE PAULSON Sex: F [...] for 20 5 General Instructions [facility] Emergency Department [address] [place] [address] Phone #: ext- [phone] 09/22/2019 19:15 Patient: TERE PAULSON Sex: F : 1955 Age: 64y minutes 3 times a week is a good form of exercise. Don't take medicines that have heart stimulants. This includes many frda-qlx-vmdwvlu cold and sinus decongestant pills and sprays, as well as diet pills. Check the warnings about high blood pressure on the label. Before purchasing any iutq-xvv-vuactci medicines or supplements, always ask the pharmacist [...] get one of these at most pharmacies.The [employer] recommends the following guidelines for [...] healthcare provider 6 General Instructions [facility] Emergency Department [address] [place] [address] Phone #: ext- [phone] 09/22/2019 19:15 Patient: [...] or seeing 7 General Instructions [facility] Emergency Department [address] [place] [address] Phone #: ext- [phone] 09/22/2019 19:15 Patient: TERE PAULSON Sex: F : 1955 Age: 64y [id number] [employer]. [address] [place] [address], [place] [address]. All rights reserved. This information is not intended as asubstitute for professional medical care. Always follow your healthcare professional's instructions. You have been given the following additional information: Headache, Tension Hypertension, New (Begin Treatment) No strenuous activity until better.(Electronically signed by Aguilar Johnson M.D. 09/22/2019 22:14) Name Value Range Interpretation Code Description Data Genna rce(s) Supporting Document(s) ID Date Data Source [id number] 09/22/2019 07:31:00 PM EDT [facility] 1 Clinical Report - Nurses [facility] Emergency Department [address] [place] [address] Phone #: ext- [phone] 09/22/2019 19:15 Patient: TERE PAULSON Sex: F [...] 2 Clinical Report - Nurses [facility] Emergency Department [address] [place] [address] Phone #: ext- [phone] 09/22/2019 19:15 [id number] Sex[facility] F : 1955 Age: 64y PAST [...] RR: 13. O2 saturation: 98%. --19:32 09/22/19 [facility], [facility], Tech1 Monitoring of patient in [...] RR: 19. O2 saturation: 96%. --19:46 09/22/19 [facility] Tech1 20:03 09/22/2019 Site #1 started via [...] 3 Clinical Report - Nurses [facility] Emergency Department [address] [place] [address] Phone #: ext- [phone] 09/22/2019 19:15 Patient: TERE PAULSON Sex: F : 1955 Age: 64yincluding reason for taking this medication and sedative warning. Verbalizes understanding. --20: eMdardo Plunkett RN20:16 09/22/19. BP: 132/68. MAP: 89. HR: 75. RR: 17. O2 saturation: 98%. --20:16 09[facility]22[facility] 09/22/19. BP: 146/79. MAP: 101. HR: 78. [...] 4 Clinical Report - Nurses [facility] Emergency Department [address] [place] [address] Phone #: ext- [phone] 09/22/2019 19:15 Patient: TERE PAULSON Sex: F : 1955 Age: 64yDISPOSITION / DISCHARGE 20:47 09/22/19. BP: 148/71. MAP: 96. HR: 83. RR: 23. O2 saturation: 95%. Temp: 98 F. --20:47 09/22/19 [facility] Tech, BRIDGET Sykes [facility] Condition at departure: improved and stable. Discharge instructions provided and reviewed with the patient. Reviewed medication(s). Prescription(s) sent electronically to pharmacy. Activity restrictions (rest) reviewed. Patient verbalized understanding. Written instructions provided in Latvian. The patient was discharged by the physician. [...] rce(s) Supporting Document(s) ID Date Data Source [id number] 09/22/2019 07:31:00 PM EDT [facility] 1 Clinical Report - Physicians/Mid Levels [facility] Emergency Department [address] [place] [address] Phone #: ext- [phone] 09/22/2019 19:15 Patient: [...] HTN in last month, being monitored by FUNCTIONAL CONSULTANT, no meds, dog was put down today, lots of stress and crying, then [facility] PHYSICIAN ASSISTANT). No recent travel. Similar symptoms previously. Patient [...] Clinical Report - Physicians/Mid Levels [facility] Emergency Department [address] [place] [address] Phone #: ext- [phone] 09/22/2019 19:15 Patient: TERE PAULSON Sex: F [...] Clinical Report - Physicians/Mid Levels [facility] Emergency Department [address] [place] [address] Phone #: ext- [phone] 09/22/2019 19:15 Patient: [...] Male GFR Interprentation 20-49 yrs >60 mL/min Anzbln15-13 yrs >56 mL/min Normal 60-69 yrs >49 mL/min Normal 70-79yrs>42 mL/min Normal 80 and above >35 mL/min Normal Female GFRInterpretation 20-39 yrs >60 mL/min Normal 40-49 yrs >58 mL/minNormal 50- 59 yrs >51 mL/min Normal 60-69 yrs >45 mL/min Rjjqdc28-94 yrs >39 mL/min Normal 80 and above >32 mL/min NormalTroponin-T: (KANDICE: 09/22/2019 19:40) ( MsgRcvd 09/22/2019 20:18) Final results Test Result Flag Units (Reference) TROPONIN T <0.01 NG/ML (0.00 - 0.10) TROPONIN T0.1 ng/ml Recommended as the clinical threshold value forTroponin T. 4 Clinical Report - Physicians/Mid Levels [facility] Emergency Department [address] [place] [address] Phone #: ext- [phone] 09/22/2019 19:15 Patient: [...] d/c w instructions; advised to f/u w FUNCTIONAL CONSULTANT in next few days 21:02 09/22/19. pt [...] Clinical Report - Physicians/Mid Levels [facility] Emergency Department [address] [place] [address] Phone #: ext- [phone] 09/22/2019 19:15 Patient: [...] tablet. Refills: 2. Substitution permitted. Pharmacy - [facility] [address] [facility] ; [place], [place] [phone]. . Follow-up: Return to the emergency department [...] Name Value Range Interpretation Code Description Data [facility](s) Supporting Document(s) ID Date Data Source [id number] 09/22/2019 08:24:00 PM EDT [facility] Name Value Range Interpretation Code Description Data [facility](s) Supporting Document(s) CBC W/AUTOMATED DIFF [facility] COMPLETE BLOOD COUNT Leukocytes [#/volume] in Blood by Automated count 8.7 10^3/uL 4.2 - 1 1.0 [facility] Erythrocytes [#/volume] in Blood by Automated count 4.89 10^6/uL 4. 20 - 5.40 [facility] Hemoglobin [Mass/volume] in Blood 15.6 g/dL 12.0 - 16.0 [facility] Hematocrit [Volume Fraction] of Blood by Automated count 45.3 % 3 7.0 - 47.0 [facility] Erythrocyte mean corpuscular volume [Entitic volume] by Auto mated count 92.6 fL 81.0 - 101 [facility] Erythrocyte mean corpuscular hemoglobin [Entitic mass] by Automated count 31.9 pg 27.0 - 34.0 [facility] Erythrocyte mean corpuscular hemoglobin concentration [Mass/volume] by Automated count 34.4 g/dL 31.0 - 36.0 [facility] Erythrocyte distribution width [Ratio] by Automated count 12.5 % 11.5 - 14.5 [facility] Platelets [#/volume] in Blood by Automated count 142 10^3/uL 150 - 45 0 L [facility] Platelet mean volume [Entitic volume] in Blood by Automated count 11.2 fL 7.4 - 10.4 H [facility] Neutrophils/100 leukocytes in Blood by Automated count 74.7 % 37. 0 - 80.0 [facility] Lymphocytes/100 leukocytes in Blood by Manual count 16.4 % 25.0 - 40.0 L [facility] Monocytes/100 leukocytes in Blood by Automated count 6.1 % 3.0 - 8.0 [facility] Eosinophils/100 leukocytes in Blood by Automated count 1.5 % 0.0 - 7.0 [facility] Basophils/100 leukocytes in Blood by Automated count 0.8 % 0.0 - 2.5 [facility] %IG 0.5 % 0.0 - 0.0 [facility] %NRBC 0.0 % 0.0 - 0.0 [facility] al Neutrophils [#/volume] in Blood by Automated count 6.50 10^3/uL 2.00 - 6.90 [facility] Lymphocytes [#/volume] in Blood by Automated count 1.43 10^3/uL 0.60 - 3.40 [facility] Monocytes [#/volume] in Blood by Automated count 0.53 10^3/uL 0.00 - 0.90 [facility] Eosinophils [#/volume] in Blood by Automated count 0.13 10^3/uL 0.00 - 0.70 [facility] Basophils [#/volume] in Blood by Automated count 0.07 10^3/uL 0.00 - 0.20 [facility] #IG 0.04 10^3/uL 0.00 - 0.10 [facility] #NRBC 0.00 10^3/uL 0.00 - 0.00 [facility] ospital MANUAL DIFF NOT INDICATED [facility] RBC MORPH SEE BELOW [facility] Anisocytosis [Presence] in Blood by Light microscopy 1+ CADY L: NONE SEEN A [facility] { SICKLE CELL (NORMAL: NONE SEEN ) COMMENT: ID Date Data Source [id number] 09/22/2019 08:18:00 PM EDT [facility] Name Value Range Interpretation Code Description Data Genna rce(s) Supporting Document(s) TROPONIN T <0.01 NG/ML 0.00 - 0.10 [facility] ospital TROPONIN T0.1 ng/ml Recommended as the c linical threshold value forTroponin T. ID Date Data Source [id number] 09/22/2019 08:18:00 PM EDT [facility] Name Value Range Interpretation Code Description Data Genna rce(s) Supporting Document(s) COMPREHENSIVE METABOLIC PANEL [facility] COMPREHENSIVE METABOLIC PANEL Sodium [Moles/volume] in Serum or Plasma 140 mEq/L 134 - 153 [facility] Potassium [Moles/volume] in Serum or Plasma 4.4 mEq/L 3.6 - 5.0 [facility] Chloride [Moles/volume] in Serum or Plasma 103 mEq/L 98 - 107 [facility] Carbon dioxide, total [Moles/volume] in Serum or Plasma 24 MEQ/L 22 - 30 [facility] Glucose [Mass/volume] in Serum or Plasma 112 MG/DL 65 - 110 H [facility] BUN 9 MG/DL 7 - 21 [facility] al Creatinine [Mass/volume] in Serum or Plasma 0.7 MG/DL 0.7 - 1.5 [facility] BUN/CREAT 13 8 - 27 [facility] Protein [Mass/volume] in Serum or Plasma 7.4 G/DL 6.3 - 8.2 [facility] Albumin [Mass/volume] in Serum or Plasma 4.3 G/DL 3.9 - 5.0 [facility] Globulin [Mass/volume] in Serum by calculation 3.1 GM/DL 2.4 - 3.2 [facility] A/G RATIO 1.4 0.8 - 2.0 [facility] Calcium [Mass/volume] in Serum or Plasma 9.3 MG/DL 8.4 - 10.2 [facility] Bilirubin.total [Mass/volume] in Serum or Plasma <0.7 MG/DL 0.2 - 1.3 [facility] Alkaline phosphatase [Enzymatic activity/volume] in Serum or Plasma 106 U/L 38 - 126 [facility] Aspartate aminotransferase [Enzymatic activity/volume] in Serum or Plasma 20 U/L 5 - 40 [facility] Alanine aminotransferase [Enzymatic activity/volume] in Seru m or Plasma 19 U/L 7 - 56 [facility] Anion gap 3 in Serum or Plasma 13.0 mmol/L 8.0 - 16.0 [facility] AGE 64 yrs [facility] al NON-AA GFR >60 mL/min [facility] ital AFR AMER GFR >60 [facility] Male GFR In terprentation 20-49 [...] RISK) 09/07/2019 11:48:36 AM EDT eCW1 ( [facility]) Name Value Range Interpretation Code Description Data Genna rce(s) Supporting Document(s) Triglyceride [Mass/volume] in Serum or Plasma by calculation 204 eCW1 ([facility]) Cholesterol in LDL [Mass/volume] in Serum or Plasma by calculation 83 eCW1 ([facility]) Cholesterol in HDL [Moles/volume] in Serum or Plasma 44 eCW1 ([facility]) Cholesterol [Moles/volume] in Serum or Plasma 168 eCW1 ([facility]) 3.818 eCW1 ([facility]) 124 eCW1 ([facility]) ID Date Data Source [id number] 09/07/2019 11:48:36 AM EDT eCW1 ([facility]) Name Value Range Interpretation Code Description Data Genna rce(s) Supporting Document(s) Hemoglobin A1c/Hemoglobin.total in Blood 5.4 eCW1 ([facility]) ID Date Data Source FREE T4 & TSH PANEL 09/07/2019 11:48:36 AM EDT eCW1 ([facility]) Name Value Range Interpretation Code Description Data Genna rce(s) Supporting Document(s) 0.535 eCW1 ([facility]) 1.12 eCW1 ([facility]) ID Date Data Source Comprehensive Metabolic Profile (CMP) 09/07/2019 11:48:36 AM EDT eCW1 ([facility]) Name Value Range Interpretation Code Description Data Genna rce(s) Supporting Document(s) 10 eCW1 ([facility]) 96 eCW1 ([facility]) > 60.0 eCW1 ([facility]) 0.81 eCW1 ([facility]) 140 eCW1 ([facility]) 4.1 eCW1 ([facility]) 110 eCW1 ([facility]) 26 eCW1 ([facility]) 29 eCW1 ([facility]) 19 eCW1 ([facility]) 8.8 eCW1 ([facility]) 98 eCW1 ([facility]) 0.6 eCW1 ([facility]) 6.9 eCW1 ([facility]) 3.6 eCW1 ([facility]) 1.1 eCW1 ([facility]) ID Date Data Source CBC - Complete Blood Count 09/07/2019 11:48:36 AM EDT eCW1 ( [facility]) Name Value Range Interpretation Code Description Data Genna rce(s) Supporting Document(s) 6.4 eCW1 ([facility]) 4.74 eCW1 ([facility]) 15.2 eCW1 ([facility]) 46.3 eCW1 ([facility]) 97.7 eCW1 ([facility]) 32.1 eCW1 ([facility]) 32.8 eCW1 ([facility]) 264 eCW1 ([facility]) 12.3 eCW1 ([facility]) Procedure Social History Code Duration Value Status Description Data Source(s ) Smoking 01/18/2020 12:00:00 AM EST Former Smoker completed Former Smoker eCW1 ([facility]) Smoking 01/18/2020 12:00:00 AM EST Former Smoker completed Former Smoker eCW1 ([facility]) Smoking 01/18/2020 12:00:00 AM EST Former Smoker completed Former Smoker eCW1 ([facility]) Smoking 01/18/2020 12:00:00 AM EST Former Smoker completed Former Smoker eCW1 ([facility]) Smoking 10/18/2019 12:00:00 AM EDT Patient has never smoked co mpleted Patient has never smoked MEDENT ([facility]) Smoking 09/07/2019 12:00:00 AM EDT Former Smoker completed Former Smoker eCW1 ([facility]) Smoking 09/07/2019 12:00:00 AM EDT Former Smoker completed Former Smoker eCW1 ([facility]) Smoking 09/07/2019 12:00:00 AM EDT Former Smoker completed Former Smoker eCW1 ([facility]) Vital Signs ID Date Data Source UNK Name Value Range Interpretation Code Description Data Source(s) Body mass index (BMI) [Ratio] 38.8 kg/m2 38.8 k g/m2 MEDENT ([facility]) Body weight 212.00 [lb_av] 212.00 [lb_av] MEDEN T ([facility]) Body height 62 [in_i] 62 [in_i] MEDENT ([facility]) 5'2" Body temperature 96.9 [degF] 96.9 [degF] MEDENT ([facility]) Diastolic blood pressure 78 mm[Hg] 78 mm[Hg] eCW1 ([facility]) Systolic blood pressure 142 mm[Hg] 142 mm[Hg] e CW1 ([facility]) Body mass index (BMI) [Ratio] 40.36 kg/m2 40.36 kg/m2 eCW1 ([facility]) Body height [in_i] eCW1 ([facility]) Body weight 215.4 [lb_av] 215.4 [lb_av] eCW1 ([facility]) Body mass index (BMI) [Ratio] 37.8 kg/m2 37.8 k g/m2 MEDENT ([facility]) Body height 61 [in_i] 61 [in_i] MEDENT ([facility]) 5'1" Body weight 200.00 [lb_av] 200.00 [lb_av] MEDEN T ([facility]) Body temperature 97.7 [degF] 97.7 [degF] MEDENT ([facility]) Oxygen saturation in Arterial blood by Pulse oximetry 97 % 97 % MEDENT ([facility], [facility]) Respiratory rate 12 /min 12 /min MEDENT ( [facility], [facility]) Heart rate 83 /min 83 /min MEDENT ([facility]) Diastolic blood pressure 92 mm[Hg] 92 mm[Hg] MEDENT ([facility], [facility]) Systolic blood pressure 161 mm[Hg] 161 mm[Hg] M EDENT ([facility], [facility]) Body mass index (BMI) [Ratio] 37.8 kg/m2 37.8 k g/m2 MEDENT ([facility], [facility]) Body height 61 [in_i] 61 [in_i] MEDENT ([facility]) 5'1" Body weight 200.00 [lb_av] 200.00 [lb_av] MEDEN T ([facility], [facility]) Body temperature 98.1 [degF] 98.1 [degF] MEDENT ([facility], [facility]) Oxygen saturation in Arterial blood by Pulse oximetry 97 % 97 % MEDENT ([facility], [facility]) Respiratory rate 16 /min 16 /min MEDENT ( [facility], [facility]) Heart rate 77 /min 77 /min MEDENT ([facility]) Diastolic blood pressure 93 mm[Hg] 93 mm[Hg] MEDENT ([facility], [facility]) Systolic blood pressure 173 mm[Hg] 173 mm[Hg] M EDENT ([facility], [facility]) Diastolic blood pressure 92 mm[Hg] 92 mm[Hg] eCW1 ([facility]) Systolic blood pressure 168 mm[Hg] 168 mm[Hg] e CW1 ([facility]) Body temperature 98.4 [degF] 98.4 [degF] eCW1 ( [facility]) Respiratory rate 18 /min 18 /min eCW1 ([facility]) Heart rate 85 /min 85 /min eCW1 ([facility]) Body mass index (BMI) [Ratio] 41.45 kg/m2 41.45 kg/m2 eCW1 ([facility]) Body height [in_i] eCW1 ([facility]) Body weight 221.2 [lb_av] 221.2 [lb_av] eCW1 ([facility]) Diastolic blood pressure 80 mm[Hg] 80 mm[Hg] eCW1 ([facility]) Systolic blood pressure 142 mm[Hg] 142 mm[Hg] e CW1 ([facility]) Body temperature 98.5 [degF] 98.5 [degF] eCW1 ( [facility]) Respiratory rate 18 /min 18 /min eCW1 ([facility]) Heart rate 95 /min 95 /min eCW1 ([facility]) Body mass index (BMI) [Ratio] 41.19 kg/m2 41.19 kg/m2 eCW1 ([facility]) Body height [in_i] eCW1 ([facility]) Body weight 219.8 [lb_av] 219.8 [lb_av] eCW1 ([facility]) Diastolic blood pressure 72 mm[Hg] 72 mm[Hg] eCW1 ([facility]) Systolic blood pressure 136 mm[Hg] 136 mm[Hg] e CW1 ([facility]) Body mass index (BMI) [Ratio] 41.41 kg/m2 41.41 kg/m2 eCW1 ([facility]) Body height [in_us] eCW1 ([facility]) Body weight Measured 221 [lb_av] 221 [lb_av] eC W1 ([facility]) Patient Treatment Plan of Care Planned Activity Planned Date Details Description Data Source (s) Lisinopril 10 MG Oral Tablet 01/28/2020 12:00:00 AM EST eCW1 ([facility]) Lisinopril 10 MG Oral Tablet 01/28/2020 12:00:00 AM EST eCW1 ([facility]) Lisinopril 10 MG Oral Tablet 01/28/2020 12:00:00 AM ALEXIS eCW1 ([facility])
--- NOTE | 2020-03-27 11:23 | REP ---
INDICATION: swelling pain left leg 3 cm greater than r COMPARISON: None. TECHNIQUE: Mandel scale and color Doppler evaluation left lower extremity using linear high frequency transducer. FINDINGS: Ultrasound examination of the left lower extremity deep venous structures demonstrates complete occlusion from the common femoral vein to the popliteal vein. IMPRESSION: Acute deep venous thrombosis from the common femoral vein to the popliteal vein. <Electronically signed by Jabari Muñoz > 03/27/20 [id number]
[2020-03-27 11:27] LABS: BASO # 0.1 10^3/uL (0.0-0.2); BASO % 0.5 % (0.0-1.0); EOS # 0.2 10^3/uL (0.0-0.5); EOS % 1.4 % (0.0-3.0); HEMATOCRIT 44.9 % (36.0-47.0); HEMOGLOBIN 15.2 g/dl (12.0-15.5); LYMPH % 9.4 % (24.0-44.0); MEAN CORPUSCULAR HGB CONC 33.9 g/dl (32.0-36.5); MEAN CORPUSCULAR VOLUME 94.5 fl (80.0-96.0); MONO % 9.1 % (0.0-5.0); NEUTROPHILS # 8.4 10^3/uL (1.5-8.5); PLATELET COUNT, AUTOMATED 191 10^3/uL (150-450); RED BLOOD COUNT 4.75 10^6/uL (4.00-5.40); WHITE BLOOD COUNT 10.7 10^3/uL (4.0-10.0)
[2020-03-27] MEDS ORDERED: ISOVUE-370 76% 100ML VIAL As Ordered ONE (11:28)
[2020-03-27 11:43] LABS: INR 1.09; PROTHROMBIN TIME 14.3 SECONDS (12.5-14.3)
[2020-03-27 11:44] LABS: PARTIAL THROMBOPLASTIN TIME 33.9 SECONDS (24.2-38.5)
--- NOTE | 2020-03-27 11:56 | REP ---
INDICATION: sob, tachycardia, dvt LLE. COMPARISON: None. TECHNIQUE: Contrast dose: 75 ML of Isovue [address] technique: Helical scanning is acquired and overlapping 1.5 mm and contiguous 3 mm axial images are reformatted. In addition, maximum intensity projection and multiplanar re-formation images are generated in sagittal and coronal imaging projections. FINDINGS: There is good opacification in the pulmonary arterial tree. There is no evidence of vessel cut off or filling defect to suggest pulmonary embolus. Homogeneous opacity is seen in the thoracic aorta. There is no evidence of aneurysm or dissection. Lung window settings demonstrate no evidence of infiltrate, mass, or significant pulmonary nodule. No pleural or pericardial effusion is seen. No hilar or mediastinal mass or adenopathy is observed. There is evidence of a very small sliding-type hiatal hernia. In the upper abdomen, normal adrenal glands are seen. Post cholecystectomy clips are noted. The visualized upper abdominal structures are otherwise unremarkable. No bony destructive lesion is seen. IMPRESSION: No CT evidence of pulmonary embolus. No active cardiopulmonary disease. <Electronically signed by Jonatan Rodriguez > 03/27/20 [id number]
[2020-03-27 11:58] LABS: ALBUMIN 3.3 GM/DL (3.2-5.2); ALT/SGPT 21 U/L (12-78); BILIRUBIN,DIRECT 0.7 MG/DL (0.0-0.2); CK-MB VALUE MASS < 1.0 NG/ML (<3.6); CPK CREATINE PHOSPHOKINASE 50 U/L (26-192); NT-PRO BNP 33 PG/ML (<125); TOTAL PROTEIN 7.5 GM/DL (6.4-8.2); TROPONIN I < 0.02 NG/ML (< 0.10)
[2020-03-27 12:05] LABS: D-DIMER QUANT > 4000 ng/ml (<500)
[2020-03-27] MEDS ORDERED: OMEP-218 PO (12:29)
[2020-03-27 13:24] LABS: RSV AMPLIFICATION NEGATIVE (NEGATIVE)
[2020-03-27] MEDS ORDERED: OMEPRAZOLE 20 MG CAP PO PRN (13:45)
--- NOTE | 2020-03-27 13:48 | HPEPDOC ---
[facility] Medical History & Physical Date of Admission Mar 27, 2020 Date of Service: Mar 27, 2020 History and Physical CHIEF COMPLAINT: Left leg pain HISTORY OF PRESENT ILLNESS: This is a 64-year-old female history of hypertension who presents due to a 4 day history of left leg pain and swelling. Says she first noticed it when she realized it was painful for her To lay on her left leg. At its worst pain is 8 out of 10 now much more comfortable. Describes the pain as sharp. Pain is also present on ambulation. She denies any other associated symptoms that she did not try anything to palpation. She denies any chest pain or shortness of breath, probable. Denies any swelling of the right leg. In the emergency department d uplex of her swollen leg was done revealing a left lower extremity DVT. CT angios done which did not show a pulmonary embolism. Patient does admit to a history of DVT when she was in her teenage years on control pills after which she's never used estrogen-based contraceptives. Upon questioning she denies any family history of clotting disorders. 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 I discussed with her the prolonged periods of immobility as she describes are pre disposing risk factors for forming blood clots. PAST MEDICAL/SURGICAL HISTORY: Hypertension GERD Cholecystectomy Hysterectomy SOCIAL HISTORY: Denies alcohol use Denies tobacco use Denies illicit drug use FAMILY HISTORY: Reviewed and none contributory to this admission ALLERGIES: Please see below. REVIEW OF SYSTEMS: 10 point review of systems complete all negative otherwise stated in HPI HOME MEDICATIONS: Please see below. PHYSICAL EXAMINATION: Constitutional: Awake and alert, in no apparent distress, obese ENT: Sclera are clear. Mucosa is moist. Respiratory: Lungs CTA bilaterally. No respiratory distress. No use of accessory muscles. Cardiovascular: RRR S1 and S2 are normal, no murmur Gastrointestinal: Abdomen is soft, non distended, non tender, BS present. Musculoskeletal: Left leg is more swollen than the right leg. Peripheral pulses are good. Left leg only tender to deep palpation Homans positive. Neurologic: No focal neurological deficit. Mental Status: A&O x3, normal affect Skin: Warm, dry LABORATORY DATA: See below. IMAGING: See chart MICROBIOLOGY: Please see below. ASSESSMENT/PLAN 64-year-old female history of hypertension found to have a left lower extremity DVT admitted for medical management and physical therapy. # Left lower extremity DVT: Based on the history this might be a provoked DVT from immobility. I initiated a hypercoagulability workup which can be continued on an outpatient basis. I started the patient on therapeutic Lovenox twice daily and she will be observed overnight to ensure her leg swelling and pain do not progress given that she has complete occlusion. She is also having trouble ambulating due to the pain and I have asked physical therapy and occupational therapy to evaluate the patient. Upon discharge it would probably be appropriate to start the patient on a NOAK. # GERD: Continue Protonix # Hypertension: Continue home meds. Monitor and titrate # DVT prophylaxis: Lovenox therapeutic dose A [facility] Vital Signs Vital Signs Date Time Temp Pulse Resp B/P (MAP) Pulse Ox O2 Delivery O2 Flow Rate FiO2 03/27/20 11:26 03/27/20 09:41 98.1 78 20 100 Room Air Laboratory Data Labs 24H Laboratory Tests 2 03/27/20 11:17: Immature Granulocyte % (Auto) 0.6, Neutrophils (%) (Auto) 79.0H, Lymphocytes (%) (Auto) 9.4L, Monocytes (%) (Auto) 9.1H, Eosinophils (%) (Auto) 1.4, Basophils (%) (Auto) 0.5, Neutrophils # (Auto) 8.4, Lymphocytes # (Auto) 1.0L, Monocytes # (Auto) 1.0H, Eosinophils # (Auto) 0.2, Basophils # (Auto) 0.1, Nucleated Red Blood Cells % (auto) 0.0, Prothrombin Time 14.3H, Prothromb Time International Ratio 1.09, Activated Partial Thromboplast Time 33.9, D-Dimer, Quantitative > 4000H, Total Bilirubin 2.0H, Direct Bilirubin 0.7H, Aspartate Amino Transf (AST/SGOT) 17, Alanine Aminotransferase (ALT/SGPT) 21, Alkaline Phosphatase 101, Total Creatine Kinase 50, Creatine Kinase MB < 1.0, Creatine Kinase MB Relative Index 2.00, Troponin I < 0.02, KI-Qtm-[id number]-Type Natriuretic Peptide 33, Total Protein 7.5, Albumin 3.3, Albumin/Globulin Ratio 0.8L 03/27/20 11:23: POC Glucose (Misc Panel) 105, POC Sodium (Misc Panel) 138, POC Potassium (Misc Panel) 3.4L, POC Chloride (Misc Panel) 106, POC Total CO2 (Misc Panel) 23.0, POC Blood Urea Nitrogen (Misc Panel 11, POC Ionized Calcium (Misc Panel) 4.6, POC Creatinine (Misc Panel) 0.5L, POC Hematocrit (Misc Panel) 45.0 03/27/20 12:40: Coronavirus (COVID-19)(PCR) NEGATIVE, Influenza Type A (RT-PCR) NEGATIVE, Influenza Type B (RT-PCR) NEGATIVE, Respiratory Syncytial Virus (PCR) NEGATIVE CBC/BMP Laboratory Tests 03/27/20 11:17 Home Medications Scheduled Lisinopril (Lisinopril) 10 Mg Tablet, 10 MG PO DAILY Scheduled PRN Omeprazole (Omeprazole) 20 Mg Capsule.dr, 20 MG PO DAILY PRN for HEARTBURN Allergies Coded Allergies: No Known Allergies (Verified Allergy, Unknown, 03/27/20) A-FIB/CHADSVASC A-FIB History Current/History of A-Fib/PAF?: No CORNELIUS VILLAREAL MD Mar 27, 2020 13:48
--- OUTSIDE RECORDS SUMMARY | 2020-03-27 13:50 | CCD ---
Author Author [facility] Organization [facility] Address Unknown Phone Unavailable Care Team Providers Care Superintendent Building Name Role Phone BRODY PA-C, [phone] A. RALEIGH PA Unavailable Unava ilable BRODY PA-C, [phone] A. RALEIGH PA Unavailable Unava ilable BRODY PA-C, [phone] A. RALEIGH PA Unavailable Unava ilable BROYD PA-C, [phone] A. RALEIGH PA Unavailable Unava ilable BRODY PA-C, [phone] A. RALEIGH PA Unavailable Unava ilable BRODY PA-C, [phone] A. RALEIGH PA Unavailable Unava ilable BRODY PA-C, [phone] A. RALEIGH PA Unavailable Unava ilable TURRIN, [...] Unavailable CARTER, JOSEPHINE PA Unavailable Unavailable CARTER, JOSEPHNIE PA Unavailable Unavailable CARTER, JOSEPHINE PA Unavailable [...] is protected by Article 27-F of the [facility] Public Health law. If you continue you may have access to information: Regarding HIV / AIDS; Provided by facilities licensed or operated by the [facility] Office of Mental Health; or Provided by the [facility] Office for People With Developmental Disabilities. If such information is present, then the following [facility] mandated warning applies: This information has been [...] law may result in a fine or half-way sentence or both. A general authorization for the release of medical or other information is NOT sufficient authorization for further disc losure. Family History Family Member Name Family Member Gender Family Member Status Date o f Status Description Data Source(s) Unknown Unknown Problem MEDENT ([facility], [facility]) Encounters Encounter Providers Location Date Indications Data Source(s ) Unknown [address] [facility] [place] [address] 02/02/2020 12:00:00 AM EST eCW1 ([facility]ly [facility]) Unknown [address] [facility] [place] [address] 01/28/2020 12:00:00 AM EST eCW1 ([facility]) Unknown [address] [facility] [place] [address] 01/28/2020 12:00:00 AM EST eCW1 ([facility]) [place] [address] [facility] [facility] [address] 01/18/2020 12:00:00 AM EST eCW1 ([facility]) [place] [address] [facility] [address] 11/16/2019 12:00:00 AM EDT eCW1 ([facility]) Outpatient Attender: JOSEPHINE Candelarioa ry 10/18/2019 04:50:00 PM EDT MEDENT ([facility]) Outpatient Attender: ISIDRO Candelario everardo 09/27/2019 11:50:00 AM EDT MEDENT ([facility]) Emergency Attender: AGUILAR JOHNSONConsultant: [id number] RALEIGH SKINNER PA-C 09/22/2019 07:31:00 PM EDT - 09/22/2019 10:11:00 PM EDT [facility] Patient discharged. [place] [address] [facility] [address] 09/07/2019 12:00:00 AM EDT eCW1 ([facility]) [place]patient [address] [facility] [facility] [address] 08/12/2019 12:00:00 AM EDT eCW1 (Formerly [facility]) [facility] [address] [place] [address] 06/14/2019 12:00:00 AM EDT eCW1 (Formerly [facility]) Medications Medication Brand Name Start Date [...] {tablet} active Lisinopril 10 MG eCW1 ( [facility]) Lisinopril 10 MG Oral Tablet Lisinopril 10 MG 01/28/2020 12:00:00 A M EST 1.0 {tablet} active Lisinopril 10 MG eCW1 ( [facility]) Lisinopril 10 MG Oral Tablet Lisinopril 10 MG 01/28/2020 12:00:00 A M EST 1.0 {tablet} active Lisinopril 10 MG eCW1 ( [facility]) Lisinopril 10 MG Oral Tablet LISINOPRIL 11/10/2019 [...] 10/18/2019 12:00:00 AM EDT active M EDENT ([facility], [facility]) No Active Medications 09/27/2019 12:00:00 AM EDT completed MEDENT ([facility]) 5 mg 09/27/2019 12:00:00 AM EDT tablet [...] TIMES A DAY NEEDED SO LD: 09/23/2019 [facility] Insurance Providers Payer name Policy type / Coverage type Policy ID Covered republican ID Covered republican's relationship to moura Policy Moura Plan Information [employer] [place] [id number] SP [id number] [employer] [place] O [id number] O [id number] [employer] PLAN-O/P [id number] 18 [id number] [employer]AN [id number] SP [id number] [facility] [employer] BENEF O [id number] O [id number] [employer] BEN[employer] PLAN [id number] SP [id number] [employer] Ppo/Pos/[employer] Commercial [id number] Self [id number] [facility] [employer]IL HANDLERS BENEF O [id number] S [id number] [employer]EN[employer]IT PLAN [id number] SP [id number] Problems, Conditions, and Diagnoses Code Display Name Description Problem Type Effective Dates Data Source(s) K21.9 [id number] Gastroesophageal reflux disease without e sophagitis Problem 08/12/2019 12:00:00 AM EDT eCW1 ([facility]) I10 Essential (primary) hypertension Essential (primary) h ypertension Diagnosis 09/22/2019 07:31:00 PM EDT [facility] [id number] Episodic tension-type headache, not intr actable Episodic tension-type headache, not intractable Diagnosis 09/22/2019 07:31:[address] [facility] R51 Headache Headache Diagnosis 09/22/2019 07:31:00 PM ED T [facility] Surgeries/Procedures Procedure Description Date Indications Data Source(s) Therapeutic, Prophylactic Or Diagnostic Injection Subq/Im 10/18/2019 12:00:00 AM EDT MEDENT ([facility]) Results ID Date Data Source [id number] 09/23/2019 03:12:00 PM EDT [facility] [address] [place] [address] PHONE: [phone] FAX: [phone] Name .................. : KHURRAM CARRANZA Acct Number.................. : [id number] ROOM. ................. : [facility] MR Number ................... : [id number] Stay type ............. : E/R Discharge Date......... ... : 09/22/19 Admit Date ....... .. : 09/22/19 Admit Phys .................... : ALEX CHAPA Date of ....... : 1955 Family Phys ................... : BRODY PETER Phone .................. : [phone] Age ................................ : 64 Film# .................. .:[id number] Sex ................................. : F Unsigned transcriptions are preliminary reports and do not represent a medical or legal document CT HEAD W/O CONTRAST 10882 COMPLETE:09/22/19 19:56 KJE 68244 Reason(s): Headache CT OF THE HEAD WITHOUT [...] rce(s) Supporting Document(s) ID Date Data Source [id number] 09/23/2019 01:00:00 PM EDT [address] [place] [address] RESPIRATORY CARE REPORT ==== ---------NAME------- NUMBER SEX AGE ADMIT DISC. XRAY# F/C TYPEBURNSSTEPHENS TERE [id number] F 64 09/22/19 09/22/19 [id number] IBD E/R DATE OF : 1955 M/R# [id number] #: [id number] TR-07 LOCATION: EMERGENCY DEPT EKG 23020 COMPLE TE:09/23/19 01:17 VMT 94717 PHYSICIAN: ALEX CHAPA Name Value Range Interpretation Code Description Data Genna rce(s) Supporting Document(s) ID Date Data Source [id number] 09/23/2019 12:59:00 PM EDT [address] [place] [address] RESPIRATORY CARE REPORT ==== ---------NAME------- NUMBER SEX AGE ADMIT DISC. XRAY# F/C ROSE CARRANZA [id number] F 64 09/22/19 09/22/19 [id number] IBD E/R DATE OF : 1955 M/R# [id number] #: [id number] TR-07 LOCATION: EMERGENCY DEPT EKG 38339 [facility] TE:09/23/19 01:17 T 35769 PHYSICIAN: ALEX CHAPA Name Value Range Interpretation Code Description Data Genna rce(s) Supporting Document(s) ID Date Data Source [id number] 09/22/2019 07:31:00 PM EDT [facility] 1 OrderSheet [facility] Emergency Department [address] [place] [address] Phone #: ext- [phone] 09/22/2019 19:15 Patient: [...] (NOW Aguilar Johnson RNx1) Jessica; 2 OrderSheet [facility] Emergency Department [address] [place] [address] Phone #: ext- [phone] 09/22/2019 19:15 -- Patient: TERE PAULSON Sex: F : 1955 Age: 64yGENERAL ORDERSOrder Description Priority Entered Acknowledged InitialedBlood Pressure 19:09/22/2019 19:34 Aguilar Hallman RN, M.D.;Soil Chemist 19:09/22/2019 19:34 Medardo(continuous) Aguilar Johnson RN, M.D.;EKG [...] rce(s) Supporting Document(s) ID Date Data Source [id number] 09/22/2019 07:31:00 PM EDT [facility] 1 Medication Reconciliation Report [facility] Emergency Department [address] [place] [address] Phone #: ass- [phone] 09/22/2019 19:15 Patient: TERE PAULSON Sex: F [...] Dispense 28 tablet. Refills: 2.Substitution permitted.Pharmacy - [phone] [address] [place], [place] [phone]. . -- Aguilar Johnson M.D. Name Value Range Interpretation Code Description Data Genna rce(s) Supporting Document(s) ID Date Data Source [id number] 09/22/2019 07:31:00 PM EDT [facility] 1 Medication Administration Record [facility] Emergency Department [address] [place] [address] Phone #: ext- [phone] 09/22/2019 19:15 Patient: TERE PAULSON Sex: F : 1955 Age: 64yWeight: 90.7 kgHeight/Length: 61 inBMI: 37.8ALLERGIES: No Known Drug Allergy Date/Time Medication Administered Medication OrderedStart NS [IV] NS IV 1000 mL Bolus: : Bolus 201938:04 09/22/2019 Dose: IV Fluids mL (X1)Medardo Plunkett RN Rate: 1000 mL/hr over 1 hour(s)---- Dispensed: 1000 mL bagStop Site: #1 left AC21:08 09/22/2019PeLesa Spears NS [IV] NS IV 1000 mL Bolus: : Bolus 586168:09 09/22/2019 Dose: IV Fluids mL (X1)Medardo Plunkett [...] rce(s) Supporting Document(s) ID Date Data Source [id number] 09/22/2019 07:31:00 PM EDT [facility] 1 General Instructions [facility] Emergency Department [address] [place] [address] Phone #: ext- [phone] 09/22/2019 19:15 Patient: [...] Dispense 28 tablet. Refills: 2.Substitution permitted.Pharmacy - [facility] - [phone] ; [place], [place] [phone]. .Follow-up:Return to the emergency department as needed. [...] care. ADDITIONAL INFORMATIONTension Headache 2 General Instructions [facility] Emergency Department [address] [place] [address] Phone #: ext- [phone] 09/22/2019 19:15 Patient: TERE PAULSON Sex: F [...] let yourself relax. Heat 3 General Instructions [facility] Emergency Department [address] [place] [address] Phone #: ext- [phone] 09/22/2019 19:15 Patient: [...] You have difficulty speaking Your vision changes [phone] [employer]. [address] [place] [address], [place] [address]. All rights reserved. This information is not [...] and shouldn't be ignored. 4 General Instructions [facility] Emergency Department [address] [place] [address] Phone #: ext- [phone] 09/22/2019 19:15 Patient: TERE PAULSON Sex: F [...] brisk walking for 20 5 General Instructions [facility] Emergency Department [address] [place] [address] Phone #: ext- [phone] 09/22/2019 19:15 Patient: TERE PAULSON Sex: F : 1955 Age: 64y minutes 3 times a week is a good form of exercise. Don't take medicines that have heart stimulants. This includes many sohl-bbi-kawgmvc cold and sinus decongestant pills and sprays, as well as diet pills. Check the warnings about high blood pressure on the label. Before purchasing any madb-him-pjdxlkt medicines or supplements, always ask the pharmacist [...] get one of these at most pharmacies.The [place] [employer] recommends the following guidelines for [...] as your healthcare provider 6 General Instructions [facility] Emergency Department [address] [place] [address] Phone #: ext- [phone] 09/22/2019 19:15 Patient: [...] problems speaking or seeing 7 General Instructions [facility] Emergency Department [address] [place] [address] Phone #: ext- [phone] 09/22/2019 19:15 Patient: TERE PAULSON Sex: F : 1955 Age: 64y [phone] [employer]. [address] [place] [address], [place] [address]. All rights reserved. This information is not intended as asubstitute for professional medical care. Always follow your healthcare professional's instructions. You have been given the following additional information: Headache, Tension Hypertension, New (Begin Treatment) No strenuous activity until better.(Electronically signed by Aguilar Johnson M.D. 09/22/2019 22:14) Name Value Range Interpretation Code Description Data Genna rce(s) Supporting Document(s) ID Date Data Source [id number] 09/22/2019 07:31:00 PM EDT [facility] 1 Clinical Report - Nurses [facility] Emergency Department [address] [place] [address] Phone #: ext- [phone] 09/22/2019 19:15 Patient: TERE PAULSON Sex: F [...] Aguilar R.N. 2 Clinical Report - Nurses [facility] Emergency Department [address] [place] [address] Phone #: ext- [phone] 09/22/2019 19:15 [id number] Sex: F : 1955 Age: 64y PAST [...] RR: 13. O2 saturation: 98%. --19:32 09/22/19 [facility], Tech1 Monitoring of patient in place. Patient gowned. Head of bed elevated. Reassurance given. Lights dimmed. Call light placed in reach. Side rails up x 2. Bed placed in lowest position. Brakes of bed on. Patient ready for evaluation- ED physician notified. --19:34 09/22/19 Medardo Plunkett RN 19:45 09/22/19. BP: 132/68. MAP: 89. HR: 81. RR: 19. O2 saturation: 96%. --19:46 09/22/19 [facility] Tech1 20:03 09/22/2019 Site #1 started via [...] with patient 3 Clinical Report - Nurses [facility] Emergency Department [address] [place] [address] Phone #: ext- [phone] 09/22/2019 19:15 Patient: TERE PAULSON Sex: F : 1955 Age: 64yincluding reason for taking this medication and sedative warning. Verbalizes understanding. --20: Medardo Plunkett RN20:16 09/22/19. BP: 132/68. MAP: 89. HR: 75. RR: 17. O2 saturation: 98%. --20:16 09/22/19 [facility] 09/22/19. BP: 146/79. MAP: 101. HR: 78. [...] Plunkett RN. 4 Clinical Report - Nurses [facility] Emergency Department [address] [place] [address] Phone #: ext- [phone] 09/22/2019 19:15 Patient: TERE PAULSON Sex: F : 1955 Age: 64yDISPOSITION / DISCHARGE 20:47 09/22/19. BP: 148/71. MAP: 96. HR: 83. RR: 23. O2 saturation: 95%. Temp: 98 F. --20:47 09/22/19 [facility] Tech, BRIDGET [facility] Condition at departure: improved and stable. Discharge instructions provided and reviewed with the patient. Reviewed medication(s). Prescription(s) sent electronically to pharmacy. Activity restrictions (rest) reviewed. Patient verbalized understanding. Written instructions provided in [place]. The patient was discharged by the physician. [...] rce(s) Supporting Document(s) ID Date Data Source [id number] 09/22/2019 07:31:00 PM EDT [facility] 1 Clinical Report - Physicians/Mid Levels [facility] Emergency Department [address] [place] [address] Phone #: ext- [phone] 09/22/2019 19:15 Patient: TEER PAULSON Sex: F : 1955 Age: 64y [...] HTN in last month, being monitored by [employer], no meds, dog was put down today, lots of stress and crying, then [employer]ARINETS). No recent travel. Similar symptoms previously. Patient [...] use. 2 Clinical Report - Physicians/Mid Levels [facility] Emergency Department [address] [place] [address] Phone #: ext- [phone] 09/22/2019 19:15 Patient: TERE PAULSON Sex: F [...] 40.0) 3 Clinical Report - Physicians/Mid Levels [facility] Emergency Department [address] [place] [address] Phone #: ext- [phone] 09/22/2019 19:15 Patient: [...] CELL (NORMAL: NONE SEEN ) COMMENT: CMP: (KNADICE: 09/22/2019 19:40) ( MsgRcvd 09/22/2019 20:18) Final [...] Male GFR Interprentation 20-49 yrs >60 mL/min Isruro89-43 yrs >56 mL/min Normal 60-69 yrs >49 mL/min Normal 70-79yrs>42 mL/min Normal 80 and above >35 mL/min Normal Female GFRInterpretation 20-39 yrs >60 mL/min Normal 40-49 yrs >58 mL/minNormal 50- 59 yrs >51 mL/min Normal 60-69 yrs >45 mL/min Wqwrbr55-71 yrs >39 mL/min Normal 80 and above >32 mL/min NormalTroponin-T: (KANDICE: 09/22/2019 19:40) ( MsgRcvd 09/22/2019 20:18) Final results Test Result Flag Units (Reference) TROPONIN T <0.01 NG/ML (0.00 - 0.10) TROPONIN T0.1 ng/ml Recommended as the clinical threshold value forTroponin T. 4 Clinical Report - Physicians/Mid Levels [facility] Emergency Department [address] [place] [address] Phone #: ext- [phone] 09/22/2019 19:15 Patient: [...] d/c w instructions; advised to f/u w [employer] in next few days 21:02 09/22/19. pt [...] IN 5 Clinical Report - Physicians/Mid Levels [facility] Emergency Department [address] [place] [address] Phone #: ext- [phone] 09/22/2019 19:15 Patient: [...] tablet. Refills: 2. Substitution permitted. Pharmacy - [phone] - [address] ; [place], [place] [phone]. . Follow-up: Return to the emergency department [...] Name Value Range Interpretation Code Description Data [facility](s) Supporting Document(s) ID Date Data Source [id number] 09/22/2019 08:24:00 PM EDT [facility] Name Value Range Interpretation Code Description Data [facility](s) Supporting Document(s) CBC W/AUTOMATED DIFF [facility] COMPLETE BLOOD COUNT Leukocytes [#/volume] in Blood by Automated count 8.7 10^3/uL 4.2 - 1 1.0 [facility] Erythrocytes [#/volume] in Blood by Automated count 4.89 10^6/uL 4. 20 - 5.40 [facility] Hemoglobin [Mass/volume] in Blood 15.6 g/dL 12.0 - 16.0 [facility] Hematocrit [Volume Fraction] of Blood by Automated count 45.3 % 3 7.0 - 47.0 [facility] Erythrocyte mean corpuscular volume [Entitic volume] by Auto mated count 92.6 fL 81.0 - 101 [facility] Erythrocyte mean corpuscular hemoglobin [Entitic mass] by Automated count 31.9 pg 27.0 - 34.0 [facility] Erythrocyte mean corpuscular hemoglobin concentration [Mass/volume] by Automated count 34.4 g/dL 31.0 - 36.0 [facility] Erythrocyte distribution width [Ratio] by Automated count 12.5 % 11.5 - 14.5 [facility] Platelets [#/volume] in Blood by Automated count 142 10^3/uL 150 - 45 0 L [facility] Platelet mean volume [Entitic volume] in Blood by Automated count 11.2 fL 7.4 - 10.4 H [facility] Neutrophils/100 leukocytes in Blood by Automated count 74.7 % 37. 0 - 80.0 [facility] Lymphocytes/100 leukocytes in Blood by Manual count 16.4 % 25.0 - 40.0 L [facility] Monocytes/100 leukocytes in Blood by Automated count 6.1 % 3.0 - 8.0 [facility] Eosinophils/100 leukocytes in Blood by Automated count 1.5 % 0.0 - 7.0 [facility] Basophils/100 leukocytes in Blood by Automated count 0.8 % 0.0 - 2.5 [facility] %IG 0.5 % 0.0 - 0.[address] [facility] %NRBC 0.0 % 0.0 - 0.0 [facility] al Neutrophils [#/volume] in Blood by Automated count 6.50 10^3/uL 2.00 - 6.90 [facility] Lymphocytes [#/volume] in Blood by Automated count 1.43 10^3/uL 0.60 - 3.40 [facility] Monocytes [#/volume] in Blood by Automated count 0.53 10^3/uL 0.00 - 0.90 [facility] Eosinophils [#/volume] in Blood by Automated count 0.13 10^3/uL 0.00 - 0.70 [facility] Basophils [#/volume] in Blood by Automated count 0.07 10^3/uL 0.00 - 0.20 [facility] #IG 0.04 10^3/uL 0.00 - 0.10 [facility] ospital #NRBC 0.00 10^3/uL 0.00 - 0.00 [facility] ospital MANUAL DIFF NOT INDICATED [facility] RBC MORPH SEE BELOW [facility] al Anisocytosis [Presence] in Blood by Light microscopy 1+ CADY L: NONE SEEN A [facility] { SICKLE CELL (NORMAL: NONE SEEN ) COMMENT: ID Date Data Source [id number] 09/22/2019 08:18:00 PM EDT [facility] Name Value Range Interpretation Code Description Data Genna rce(s) Supporting Document(s) TROPONIN T <0.01 NG/ML 0.00 - 0.10 [facility] ospital TROPONIN T0.1 ng/ml Recommended as the c linical threshold value forTroponin T. ID Date Data Source [id number] 09/22/2019 08:18:00 PM EDT [facility] Name Value Range Interpretation Code Description Data Genna rce(s) Supporting Document(s) COMPREHENSIVE METABOLIC PANEL [facility] COMPREHENSIVE METABOLIC PANEL Sodium [Moles/volume] in Serum or Plasma 140 mEq/L 134 - 153 [facility] Potassium [Moles/volume] in Serum or Plasma 4.4 mEq/L 3.6 - 5.0 [facility] Chloride [Moles/volume] in Serum or Plasma 103 mEq/L 98 - 107 [facility] Carbon dioxide, total [Moles/volume] in Serum or Plasma 24 MEQ/L 22 - 30 [facility] Glucose [Mass/volume] in Serum or Plasma 112 MG/DL 65 - 110 H [facility] BUN 9 MG/DL 7 - 21 [facility] al Creatinine [Mass/volume] in Serum or Plasma 0.7 MG/DL 0.7 - 1.5 [facility] BUN/CREAT 13 8 - 27 [facility] Protein [Mass/volume] in Serum or Plasma 7.4 G/DL 6.3 - 8.2 [facility] Albumin [Mass/volume] in Serum or Plasma 4.3 G/DL 3.9 - 5.0 [facility] Globulin [Mass/volume] in Serum by calculation 3.1 GM/DL 2.4 - 3.2 [facility] A/G RATIO 1.4 0.8 - 2.0 [facility] Calcium [Mass/volume] in Serum or Plasma 9.3 MG/DL 8.4 - 10.2 [facility] Bilirubin.total [Mass/volume] in Serum or Plasma <0.7 MG/DL 0.2 - 1.3 [facility] Alkaline phosphatase [Enzymatic activity/volume] in Serum or Plasma 106 U/L 38 - 126 [facility] Aspartate aminotransferase [Enzymatic activity/volume] in Serum or Plasma 20 U/L 5 - 40 [facility] Alanine aminotransferase [Enzymatic activity/volume] in Seru m or Plasma 19 U/L 7 - 56 [facility] Anion gap 3 in Serum or Plasma 13.0 mmol/L 8.0 - 16.0 [facility] AGE 64 yrs [facility] al NON-AA GFR >60 mL/min [facility] ital AFR AMER GFR >60 [facility] Male GFR In terprentation [...] RISK) 09/07/2019 11:48:36 AM EDT eCW1 ( [facility]) Name Value Range Interpretation Code Description Data Genna rce(s) Supporting Document(s) Triglyceride [Mass/volume] in Serum or Plasma by calculation 204 eCW1 ([facility]) Cholesterol in LDL [Mass/volume] in Serum or Plasma by calculation 83 eCW1 ([facility]) Cholesterol in HDL [Moles/volume] in Serum or Plasma 44 eCW1 ([facility]) Cholesterol [Moles/volume] in Serum or Plasma 168 eCW1 ([facility]) 3.818 eCW1 ([facility]) 124 eCW1 ([facility]) ID Date Data Source [id number] 09/07/2019 11:48:36 AM EDT eCW1 ([facility]) Name Value Range Interpretation Code Description Data Genna rce(s) Supporting Document(s) Hemoglobin A1c/Hemoglobin.total in Blood 5.4 eCW1 ([facility]) ID Date Data Source FREE T4 & TSH PANEL 09/07/2019 11:48:36 AM EDT eCW1 ([facility]) Name Value Range Interpretation Code Description Data Genna rce(s) Supporting Document(s) 0.535 eCW1 ([facility]) 1.12 eCW1 ([facility]) ID Date Data Source Comprehensive Metabolic Profile (CMP) 09/07/2019 11:48:36 AM EDT eCW1 ([facility]) Name Value Range Interpretation Code Description Data Genna rce(s) Supporting Document(s) 10 eCW1 ([facility]) 96 eCW1 ([facility]) > 60.0 eCW1 ([facility]) 0.81 eCW1 ([facility]) 140 eCW1 ([facility]) 4.1 eCW1 ([facility]) 110 eCW1 ([facility]) 26 eCW1 ([facility]) 29 eCW1 ([facility]) 19 eCW1 ([facility]) 8.8 eCW1 ([facility]) 98 eCW1 ([facility]) 0.6 eCW1 ([facility]) 6.9 eCW1 ([facility]) 3.6 eCW1 ([facility]) 1.1 eCW1 ([facility]) ID Date Data Source CBC - Complete Blood Count 09/07/2019 11:48:36 AM EDT eCW1 ( [facility]) Name Value Range Interpretation Code Description Data Genna rce(s) Supporting Document(s) 6.4 eCW1 ([facility]) 4.74 eCW1 ([facility]) 15.2 eCW1 ([facility]) 46.3 eCW1 ([facility]) 97.7 eCW1 ([facility]) 32.1 eCW1 ([facility]) 32.8 eCW1 ([facility]) 264 eCW1 ([facility]) 12.3 eCW1 ([facility]) Procedure Social History Code Duration Value Status Description Data Source(s ) Smoking 01/18/2020 12:00:00 AM EST Former Smoker completed Former Smoker eCW1 ([facility]) Smoking 01/18/2020 12:00:00 AM EST Former Smoker completed Former Smoker eCW1 ([facility]) Smoking 01/18/2020 12:00:00 AM EST Former Smoker completed Former Smoker eCW1 ([facility]) Smoking 01/18/2020 12:00:00 AM EST Former Smoker completed Former Smoker eCW1 ([facility]) Smoking 10/18/2019 12:00:00 AM EDT Patient has never smoked co mpleted Patient has never smoked MEDENT ([facility]) Smoking 09/07/2019 12:00:00 AM EDT Former Smoker completed Former Smoker eCW1 ([facility]) Smoking 09/07/2019 12:00:00 AM EDT Former Smoker completed Former Smoker eCW1 ([facility]) Smoking 09/07/2019 12:00:00 AM EDT Former Smoker completed Former Smoker eCW1 ([facility]) Vital Signs ID Date Data Source UNK Name Value Range Interpretation Code Description Data Source(s) Body mass index (BMI) [Ratio] 38.8 kg/m2 38.8 k g/m2 MEDENT ([facility]) Body weight 212.00 [lb_av] 212.00 [lb_av] MEDEN T ([facility]) Body height 62 [in_i] 62 [in_i] MEDENT ([facility]) 5'2" Body temperature 96.9 [degF] 96.9 [degF] MEDENT ([facility]) Diastolic blood pressure 78 mm[Hg] 78 mm[Hg] eCW1 ([facility]) Systolic blood pressure 142 mm[Hg] 142 mm[Hg] e CW1 ([facility]) Body mass index (BMI) [Ratio] 40.36 kg/m2 40.36 kg/m2 eCW1 ([facility]) Body height [in_i] eCW1 ([facility]) Body weight 215.4 [lb_av] 215.4 [lb_av] eCW1 ([facility]) Body mass index (BMI) [Ratio] 37.8 kg/m2 37.8 k g/m2 MEDENT ([facility]) Body height 61 [in_i] 61 [in_i] MEDENT ([facility]) 5'1" Body weight 200.00 [lb_av] 200.00 [lb_av] MEDEN T ([facility]) Body temperature 97.7 [degF] 97.7 [degF] MEDENT ([facility], [facility]) Oxygen saturation in Arterial blood by Pulse oximetry 97 % 97 % MEDENT ([facility], [facility]) Respiratory rate 12 /min 12 /min MEDENT ( [facility], [facility]) Heart rate 83 /min 83 /min MEDENT ([facility], [facility]) Diastolic blood pressure 92 mm[Hg] 92 mm[Hg] MEDENT ([facility], [facility]) Systolic blood pressure 161 mm[Hg] 161 mm[Hg] M EDENT ([facility], [facility]) Body mass index (BMI) [Ratio] 37.8 kg/m2 37.8 k g/m2 MEDENT ([facility], [facility]) Body height 61 [in_i] 61 [in_i] MEDENT ([facility], [facility]) 5'1" Body weight 200.00 [lb_av] 200.00 [lb_av] MEDEN T ([facility], [facility]) Body temperature 98.1 [degF] 98.1 [degF] MEDENT ([facility], [facility]) Oxygen saturation in Arterial blood by Pulse oximetry 97 % 97 % MEDENT ([facility], [facility]) Respiratory rate 16 /min 16 /min MEDENT ( [facility], [facility]) Heart rate 77 /min 77 /min MEDENT ([facility], [facility]) Diastolic blood pressure 93 mm[Hg] 93 mm[Hg] MEDENT ([facility], [facility]) Systolic blood pressure 173 mm[Hg] 173 mm[Hg] M EDENT ([facility], [facility]) Diastolic blood pressure 92 mm[Hg] 92 mm[Hg] eCW1 ([facility]) Systolic blood pressure 168 mm[Hg] 168 mm[Hg] e CW1 ([facility]) Body temperature 98.4 [degF] 98.4 [degF] eCW1 ( [facility]) Respiratory rate 18 /min 18 /min eCW1 ([facility]) Heart rate 85 /min 85 /min eCW1 ([facility]) Body mass index (BMI) [Ratio] 41.45 kg/m2 41.45 kg/m2 eCW1 ([facility]) Body height [in_i] eCW1 ([facility]) Body weight 221.2 [lb_av] 221.2 [lb_av] eCW1 ([facility]) Diastolic blood pressure 80 mm[Hg] 80 mm[Hg] eCW1 ([facility]) Systolic blood pressure 142 mm[Hg] 142 mm[Hg] e CW1 ([facility]) Body temperature 98.5 [degF] 98.5 [degF] eCW1 ( [facility]) Respiratory rate 18 /min 18 /min eCW1 ([facility]) Heart rate 95 /min 95 /min eCW1 ([facility]) Body mass index (BMI) [Ratio] 41.19 kg/m2 41.19 kg/m2 eCW1 ([facility]) Body height [in_i] eCW1 ([facility]) Body weight 219.8 [lb_av] 219.8 [lb_av] eCW1 ([facility]) Diastolic blood pressure 72 mm[Hg] 72 mm[Hg] eCW1 ([facility]) Systolic blood pressure 136 mm[Hg] 136 mm[Hg] e CW1 ([facility]) Body mass index (BMI) [Ratio] 41.41 kg/m2 41.41 kg/m2 eCW1 ([facility]) Body height [in_us] eCW1 ([facility]) Body weight Measured 221 [lb_av] 221 [lb_av] eC W1 ([facility]) Patient Treatment Plan of Care Planned Activity Planned Date Details Description Data Source (s) Lisinopril 10 MG Oral Tablet 01/28/2020 12:00:00 AM EST eCW1 ([facility]) Lisinopril 10 MG Oral Tablet 01/28/2020 12:00:00 AM EST eCW1 ([facility]) Lisinopril 10 MG Oral Tablet 01/28/2020 12:00:00 AM ALEXIS eCW1 ([facility])
[2020-03-27] MEDS ORDERED: POTASSIUM CHLORIDE 10 MEQ SR TABLET PO ONE (14:00)
[2020-03-27 14:39] LABS: FIBRINOGEN 540 MG/DL (221-452)
[2020-03-27 15:50] VITALS: BP 142/84
[2020-03-27] MEDS: DOCUSATE SODIUM 100MG CAPSULE PO SCH ×2 (16:31→20:14)
[2020-03-27] MEDS: ACETAMINOPHEN TAB 650MG DOSE (2X325MG) PO PRN (18:30)
--- NOTE | 2020-03-27 20:44 | ECGEPIP ---
[facility] - ED Test Date: 2020-03-27 Pat Name: TERE DAWSON Department: Room: - Gender: Female Bpm Developer: [facility] : 1955 Requested By: QUIQUE Pope PA-C Order Number: [id number] Reading MD: Kartik Sanders Measurements Intervals [place] Rate: 87 P: 49 OK: 138 QRS: 0 QRSD: 101 T: 2 QT: 344 QTc: 415 Interpretive Statements SINUS RHYTHM POOR R WAVE PROGRESSION NO PRIORS FOR COMPARISON Electronically Signed on 03-27-2020 20:44:20 EST by Kartik Sanders
[2020-03-27 22:00] VITALS: BP 127/58
[2020-03-28] MEDS: ENOXAPARIN 100MG/1ML SYRINGE (J1650 PER 10MG) SC SCH ×2 (05:23→17:14)
[2020-03-28] MEDS: ACETAMINOPHEN TAB 650MG DOSE (2X325MG) PO PRN ×3 (05:24→21:32)
[2020-03-28 06:00] VITALS: BP 135/70
[2020-03-28] MEDS: DOCUSATE SODIUM 100MG CAPSULE PO SCH ×2 (08:42→19:48)
[2020-03-28 14:00] VITALS: BP 126/59
--- NOTE | 2020-03-28 19:15 | IPNPDOC ---
Text Note Date of Service The patient was seen on 03/28/20. NOTE Subjective: Patient continues to complain of left leg pain when she walk Objective: GENERAL APPEARANCE: NAD HEENT: no scleral icterus, no JVD, EOMI CARDIOVASCULAR: S1S2 LUNGS: CTA ABDOMEN: soft & not tender w palpitation MUSCULOSKELETAL: Left leg is more swollen than the right leg. Peripheral pulses intact INTEGUMENT: no generalized pallor NEUROLOGICAL: cranial nerve function from 2-12 intact intact, follows commands, speech not dysarthric ASSESSMENT/PLAN 64-year-old female history of hypertension found to have a left lower extremity DVT admitted for medical management and physical therapy Left lower extremity DVT Most likely provoked secondary to sedentary lifestyle Continue anticoagulation PT/OT GERD Continue Protonix Hypertension: Continue home meds. VS,Fishbone, I+O VS, Fishbone, I+O Vital Signs Date Time Temp Pulse Resp B/P (MAP) Pulse Ox O2 Delivery O2 Flow Rate FiO2 03/28/20 14:00 99.0 97 20 126/59 (81) 97 Room Air I&O- Last 24 Hours up to 6 AM 03/28/20 06:00 Intake Total 1320 ml Output Total 500 ml Balance 820 ml WALI NUNEZ DO Mar 28, 2020 19:15
[2020-03-28 22:00] VITALS: BP 132/67
[2020-03-29] MEDS: traMADol 50 MG TAB PO PRN ×3 (05:15→18:21)
[2020-03-29 06:00] VITALS: BP 115/67
[2020-03-29 06:43] LABS: BASO % 0.4 % (0.0-1.0); EOS # 0.3 10^3/uL (0.0-0.5); EOS % 2.9 % (0.0-3.0); HEMATOCRIT 40.5 % (36.0-47.0); HEMOGLOBIN 13.5 g/dl (12.0-15.5); LYMPH # 0.9 10^3/uL (1.5-5.0); LYMPH % 8.8 % (24.0-44.0); MEAN CORPUSCULAR HEMOGLOBIN 31.5 pg (27.0-33.0); MEAN CORPUSCULAR HGB CONC 33.3 g/dl (32.0-36.5); MEAN CORPUSCULAR VOLUME 94.4 fl (80.0-96.0); MONO # 0.9 10^3/uL (0.0-0.8); MONO % 8.3 % (0.0-5.0); NEUTROPHILS # 8.3 10^3/uL (1.5-8.5); NEUTROPHILS % 79.1 % (36.0-66.0); PLATELET COUNT, AUTOMATED 239 10^3/uL (150-450); RED BLOOD COUNT 4.29 10^6/uL (4.00-5.40); WHITE BLOOD COUNT 10.5 10^3/uL (4.0-10.0)
[2020-03-29 07:07] LABS: BLOOD UREA NITROGEN 15 MG/DL (7-18); CARBON DIOXIDE LEVEL 25 MEQ/L (21-32); CHLORIDE LEVEL 105 MEQ/L (98-107); CREATININE FOR GFR 0.67 MG/DL (0.55-1.30); GLOMERULAR FILTRATION RATE > 60.0 (>45); GLUCOSE, FASTING 104 MG/DL (70-100); POTASSIUM SERUM 3.4 MEQ/L (3.5-5.1); SODIUM LEVEL 137 MEQ/L (136-145)
[2020-03-29] MEDS: RIVAROXABAN 15 MG TAB (XARELTO) PO SCH ×2 (08:46→18:21)
[2020-03-29] MEDS: DOCUSATE SODIUM 100MG CAPSULE PO SCH ×2 (08:50→21:00)
[2020-03-29] MEDS ORDERED: XARE15TA PO (11:56)
--- NOTE | 2020-03-29 12:58 | IPNPDOC ---
Text Note Date of Service The patient was seen on 03/29/20. NOTE Subjective: Patient continues to complain of left leg pain when she walk. Yocasta ent stated that pain is not improving Objective: GENERAL APPEARANCE: NAD HEENT: no scleral icterus, no JVD, EOMI CARDIOVASCULAR: S1S2 LUNGS: CTA ABDOMEN: soft & not tender w palpitation MUSCULOSKELETAL: Left leg is more swollen than the right leg. Peripheral pulses intact INTEGUMENT: no generalized pallor NEUROLOGICAL: cranial nerve function from 2-12 intact intact, follows commands, speech not dysarthric ASSESSMENT/PLAN 64-year-old female history of hypertension found to have a left lower extremity DVT admitted for medical management and physical therapy Left lower extremity DVT Most likely provoked secondary to sedentary lifestyle Continue anticoagulation PT/OT I talked to Dr. Flores , plan to do thrombectomy tomorrow. Nothing by mouth after midnight GERD Continue Protonix Hypertension: Continue home meds. VS,Fishbone, I+O VS, Fishbone, I+O Laboratory Tests 03/29/20 06:20 Vital Signs Date Time Temp Pulse Resp B/P (MAP) Pulse Ox O2 Delivery O2 Flow Rate FiO2 03/29/20 12:34 20 03/29/20 08:49 130/85 03/29/20 06:00 96.5 81 98 03/28/20 14:00 Room Air I&O- Last 24 Hours up to 6 AM 03/29/20 06:00 Intake Total 1740 ml Output Total 650 ml Balance 1090 ml WALI NUNEZ DO Mar 29, 2020 12:58
[2020-03-29 14:00] VITALS: BP 133/75
[2020-03-29] MEDS ORDERED: ELIQ5TAB PO (15:12)
[2020-03-29] MEDS: ACETAMINOPHEN TAB 650MG DOSE (2X325MG) PO PRN (21:08)
[2020-03-29 22:00] VITALS: BP 124/79
[2020-03-30] MEDS: traMADol 50 MG TAB PO PRN ×4 (00:25→21:56)
[2020-03-30 06:00] VITALS: BP 123/77
[2020-03-30] MEDS: RIVAROXABAN 15 MG TAB (XARELTO) PO SCH (09:13)
--- NOTE | 2020-03-30 09:41 | IRMSE ---
[facility] IR Moderate Sedation Eval. Date and Time Date: Mar 30, 2020 Time: 09:41 ASA Classification ASA Classification: II-Mild systemic disease, III-Severe systemic dis. Mallampati Score: II NPO: Yes Obstructive Sleep Apnea: No Interval Plan: moderate sedation TAMRA DAVIS MD Mar 30, 2020 09:41
[2020-03-30] MEDS ORDERED: LIDOCAINE 1% MDV 20ML VIAL As Ordered ONE (09:46)
[2020-03-30] MEDS ORDERED: ISOVUE-300 61% 50ML VIAL As Ordered ONE ×2 (09:46→11:40)
[2020-03-30] MEDS ORDERED: MIDAZOLAM INJ 2MG/2ML VIAL (J2250 PER 1MG) As Ordered ONE ×2 (09:47→11:59)
[2020-03-30] MEDS ORDERED: fentaNYL 100 MCG/2 ML INJECTION (J3010) As Ordered ONE ×2 (09:47→11:59)
[2020-03-30] MEDS ORDERED: diphenhydrAMINE 50MG/ML VIAL (J1200) As Ordered ONE (09:47)
[2020-03-30 10:03] LABS: DRVV SCREEN 52.4 SEC
[2020-03-30 10:04] LABS: PTT LUPUS TYPE ANTICOAG SCREEN 1.3 (0-1.2)
[2020-03-30] MEDS ORDERED: ALTEPLASE 2MG/2ML VIAL As Ordered ONE ×3 (10:04→11:12)
[2020-03-30 10:11] LABS: DRVV CONFIRM 38.5 SEC; NORMALIZED RATIO 1.3 (0.00-1.20)
[2020-03-30] MEDS ORDERED: PROMETHAZINE INJ 25 MG/ML VIAL (J2550) As Ordered ONE (11:49)
--- NOTE | 2020-03-30 13:23 | POST-OPPD ---
Postoperative Procedure Note Date Of Procedure: Mar 30, 2020 Time Of Procedure: 12:58 IR IVC Filter Placement. IR Inferior vena cavogram. IR Ultrasound of the right groin. IR Ultrasound of the left popliteal fossa. IR Left lower extremity pharmacomechanical thrombectomy. IR Left iliac venogram. IR Left iliac angioplasty. IR Left popliteal vein angioplasty. IR Left femoral vein angioplasty. IR Moderate sedation. Clinical Information:Extensive left lower extremity DVT extending, beyond the common femoral vein with significant swelling and pain. Patient presents for thrombectomy. IVC filter placed to prevent pulmonary embolus secondary to procedure. Physician: Dr. Flores. Procedure: The patient was advised of the benefits, risks, and alternatives of the procedure and informed consent was obtained. A time out was performed with verification of the patient's name, MRN, site of procedure, and type of procedure to be performed. The patient was positioned in the supine position on the angiographic table. The site was prepped and draped in the usual sterile fashion. Moderate sedation was performed by the physician including the presence of an independent trained RN who, assisted in monitoring the patient's level of consciousness and physiological status. Following the administration of fentanyl and Versed, the physician 180 minutes of continuous [id number] time with the patient. IVC Filter placement: Preliminary ultrasound of the right groin was performed, demonstrating patent and compressible right common femoral vein. The right common femoral vein was accessed, under ultrasound guidance using a micropuncture device. A 0.035 wire was advanced into the inferior vena cava under fluoroscopy guidance. The micro-sheath was removed and the filter sheath was advanced over the wire, under fluoroscopy guidance into the right iliac vein. An inferior venacavogram was then performed, demonstrating a normal caliber inferior vena cava without filling defects and the renal vein inflows at the L2 level. No caval anomalies were identified. The filter sheath was then advanced under fluoroscopy guidance, over the wire into the inferior vena cava. A Cook Celect inferior vena cava filter was then advanced through the sheath and positioned within the infra-renal inferior vena cava. The filter was then deployed in the usual fashion. Positioning was confirmed fluoroscopically. The sheath was then removed and hemostasis obtained with manual compression. The patient tolerated the procedure well. Left lower extremity thrombectomy: The patient was repositioned in the prone position. The site was prepped and d raped in the usual sterile fashion. Ultrasound of the left popliteal fossa demonstrates thrombosed and expanded left popliteal vein. The left popliteal vein was accessed under ultrasound guidance using a micropuncture kit. An 018 wire was advanced into the vein and the micro-sheath was exchanged for a 4 Russian Glidecath. The glide cath was advanced over the wire, under fluoroscopy guidance and contrast injection demonstrated thrombosed irregular popliteal and femoral vein. The catheter in conjunction with the wire was then used to catheterize the inferior vena cava. An inferior venacavogram was performed which demonstrates patent inferior vena cava. A pullback venogram demonstrates, that the thrombus extends all the way through the external iliac and common iliac vein to the inferior vena cava/ iliac junction. There is left common iliac stenosis. A CAT8 penumbra thrombectomy device was then used under fluoroscopy guidance to perform mechanical thrombectomy in the left popliteal vein, femoral vein, exter nal and common iliac vein. 10 mg of tPA was administered during the thrombectomy. Post thrombectomy follow-up arteriogram was performed and this demonstrates forward flow in the popliteal and femoral vein but occlusion beyond the common femoral level. An 8 x 200 mm [place] balloon was then advanced over the wire under fluoroscopy guidance and positioned in the common iliac and external iliac vein. Angioplasty was performed. 5000 units of heparin was administered. The balloon was deflated and repositioned in the femoral and popliteal vein. Angioplasty of the femoral and popliteal vein was performed. The balloon was deflated and removed over the wire. A post angioplasty follow-up venogram was performed and this demonstrates persistent occlusion to flow beyond the common femoral vein. A 12 x 80 mm [place] balloon was then advanced over the wire and used to angioplasty the left common iliac vein. The balloon was deflated and repositioned into the left external iliac vein. Angioplasty was performed. The balloon was deflated and then removed over the wire. A post angioplasty follow-up venogram was performed and this demonstrates per sistent obstruction to flow in the pelvic region. A 16 x 40 mm angioplasty balloon was then advanced over the wire to the left common iliac vein. 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 Patient could not tolerate this angioplasty under moderate sedation. Therefore procedure had to be aborted. The sheath, wire and catheters were removed, pressure held and hemostasis achieved. EBL: < 50 mL. Complications:None. Conclusions: 1. Successful inferior vena cava filter placement to reduce risk of PE during mechanical thrombectomy. 2. Left lower extremity venogram demonstrates complete occlusive thrombus extending from left popliteal vein to left common iliac vein associated with with left common iliac vein occlusion and compression. 3. Successful left lower extremity thrombectomy. However without left iliac angioplasty and stenting, patient will not have improved flow from the left lower extremity back to the heart. Patient should be started on systemic heparin and then switched to Lovenox prior to discharge. I will bring the patient back for left iliac vein angioplasty and stenting for May Thurner syndrome, under general anesthesia. Thank you for this referral. TAMRA FLORES MD Mar 30, 2020 13:23
[2020-03-30] MEDS ORDERED: HEPARIN SOD (PORCINE) 5000UNITS/ML 1ML VIAL/SYRINGE IV PRN (14:15)
[2020-03-30] MEDS ORDERED: HEPARIN SOD (PORCINE) 5000UNITS/ML 1ML VIAL/SYRINGE IV ONE (14:15)
[2020-03-30] MEDS: DOCUSATE SODIUM 100MG CAPSULE PO SCH ×2 (15:04→19:56)
[2020-03-30 15:11] LABS: HEMATOCRIT 43.4 % (36.0-47.0); HEMOGLOBIN 14.4 g/dl (12.0-15.5); MEAN CORPUSCULAR HEMOGLOBIN 31.9 pg (27.0-33.0); MEAN CORPUSCULAR HGB CONC 33.2 g/dl (32.0-36.5); MEAN CORPUSCULAR VOLUME 96.2 fl (80.0-96.0); PLATELET COUNT, AUTOMATED 265 10^3/uL (150-450); RED BLOOD COUNT 4.51 10^6/uL (4.00-5.40); WHITE BLOOD COUNT 11.2 10^3/uL (4.0-10.0)
[2020-03-30] MEDS: HEPARIN DRIP 25,000 UNITS in IV 1 EA IV SCH (15:52)
[2020-03-30 15:56] VITALS: BP 132/80
--- NOTE | 2020-03-30 17:17 | IPNPDOC ---
Text Note Date of Service The patient was seen on 03/30/20. NOTE Subjective: Patient continues to complain of left leg pain when she walk. Yocasta ent stated that pain is not improving Objective: GENERAL APPEARANCE: NAD HEENT: no scleral icterus, no JVD, EOMI CARDIOVASCULAR: S1S2 LUNGS: CTA ABDOMEN: soft & not tender w palpitation MUSCULOSKELETAL: Left leg is more swollen than the right leg. Peripheral pulses intact INTEGUMENT: no generalized pallor NEUROLOGICAL: cranial nerve function from 2-12 intact intact, follows commands, speech not dysarthric ASSESSMENT/PLAN 64-year-old female history of hypertension found to have a left lower extremity DVT admitted for medical management and physical therapy Left lower extremity DVT Most likely provoked secondary to sedentary lifestyle on 03/30/20 Dr. Flores did inferior vena cava filter placement to reduce risk of PE during mechanical thrombectomy. Left lower extremity venogram demonstrates complete occlusive thrombus extending from left popliteal vein to left common iliac vein associated with with left common iliac vein occlusion and compression. Also, left lower extremity thrombectomy was done. Heparin drip for next 48 hours GERD Continue Protonix Hypertension: Continue home meds. VS,Fishbone, I+O VS, Fishbone, I+O Laboratory Tests 03/30/20 14:58 Vital Signs Date Time Temp Pulse Resp B/P (MAP) Pulse Ox O2 Delivery O2 Flow Rate FiO2 03/30/20 15:58 132/80 03/30/20 15:56 18 03/30/20 14:45 98.1 95 96 Room Air 03/30/20 12:40 2 I&O- Last 24 Hours up to 6 AM 03/30/20 06:00 Intake Total 1100 ml Output Total 850 ml Balance 250 ml WALI NUNEZ DO Mar 30, 2020 17:17
[2020-03-30 18:30] VITALS: BP 124/73
[2020-03-30 19:00] VITALS: BP 125/73
[2020-03-30 22:00] VITALS: BP 118/74
[2020-03-31] MEDS: HEPARIN DRIP 25,000 UNITS in IV 1 EA IV SCH ×2 (04:53→17:41)
[2020-03-31 06:00] VITALS: BP 113/73
[2020-03-31] MEDS: traMADol 50 MG TAB PO PRN ×3 (09:39→22:25)
[2020-03-31] MEDS: DOCUSATE SODIUM 100MG CAPSULE PO SCH ×2 (09:39→20:04)
[2020-03-31 11:11] LABS: BASO # 0.1 10^3/uL (0.0-0.2); BASO % 0.6 % (0.0-1.0); EOS # 0.3 10^3/uL (0.0-0.5); EOS % 3.4 % (0.0-3.0); HEMATOCRIT 38.5 % (36.0-47.0); HEMOGLOBIN 12.9 g/dl (12.0-15.5); LYMPH % 11.2 % (24.0-44.0); MEAN CORPUSCULAR HEMOGLOBIN 31.9 pg (27.0-33.0); MEAN CORPUSCULAR HGB CONC 33.5 g/dl (32.0-36.5); MEAN CORPUSCULAR VOLUME 95.3 fl (80.0-96.0); MONO # 0.7 10^3/uL (0.0-0.8); MONO % 7.7 % (0.0-5.0); NEUTROPHILS # 6.9 10^3/uL (1.5-8.5); NEUTROPHILS % 76.3 % (36.0-66.0); PLATELET COUNT, AUTOMATED 280 10^3/uL (150-450); RED BLOOD COUNT 4.04 10^6/uL (4.00-5.40); WHITE BLOOD COUNT 9.1 10^3/uL (4.0-10.0)
[2020-03-31 12:24] LABS: ALBUMIN 2.4 GM/DL (3.2-5.2); ALT/SGPT 36 U/L (12-78); BILIRUBIN,TOTAL 0.6 MG/DL (0.2-1.0); BLOOD UREA NITROGEN 17 MG/DL (7-18); CALCIUM LEVEL 8.8 MG/DL (8.8-10.2); CARBON DIOXIDE LEVEL 26 MEQ/L (21-32); CHLORIDE LEVEL 104 MEQ/L (98-107); CREATININE FOR GFR 0.78 MG/DL (0.55-1.30); GLOMERULAR FILTRATION RATE > 60.0 (>45); GLUCOSE, FASTING 112 MG/DL (70-100); MAGNESIUM LEVEL 2.2 MG/DL (1.8-2.4); POTASSIUM SERUM 3.6 MEQ/L (3.5-5.1); SODIUM LEVEL 139 MEQ/L (136-145)
[2020-03-31] MEDS: OMEPRAZOLE 20 MG CAP PO SCH (13:19)
--- NOTE | 2020-03-31 13:20 | IPNPDOC ---
Text Note Date of Service The patient was seen on 03/31/20. NOTE Subjective: Patient stated that she is doing better today Objective: GENERAL APPEARANCE: NAD HEENT: no scleral icterus, no JVD, EOMI CARDIOVASCULAR: S1S2 LUNGS: CTA ABDOMEN: soft & not tender w palpitation MUSCULOSKELETAL: Left leg is more swollen than the right leg. Peripheral pulses intact INTEGUMENT: no generalized pallor NEUROLOGICAL: cranial nerve function from 2-12 intact intact, follows commands, speech not dysarthric ASSESSMENT/PLAN 64-year-old female history of hypertension found to have a left lower extremity DVT admitted for medical management and physical therapy Left lower extremity DVT Most likely provoked secondary to sedentary lifestyle on 03/30/20 Dr. Flores did inferior vena cava filter placement to reduce risk of PE during mechanical thrombectomy. Left lower extremity venogram demonstrates complete occlusive thrombus extending from left popliteal vein to left common iliac vein associated with with left common iliac vein occlusion and compression. Also, left lower extremity thrombectomy was done. Heparin drip for 48 hours GERD Continue Protonix Hypertension: Continue home meds. VS,Fishbone, I+O VS, Fishbone, I+O Laboratory Tests 03/30/20 14:58 03/31/20 10:55 Vital Signs Date Time Temp Pulse Resp B/P (MAP) Pulse Ox O2 Delivery O2 Flow Rate FiO2 03/31/20 09:41 147/84 03/31/20 09:39 20 Room Air 03/31/20 06:00 98.0 91 93 3.0 I&O- Last 24 Hours up to 6 AM 03/31/20 06:00 Intake Total 2300 ml Output Total 950 ml Balance 1350 ml WALI NUNEZ DO Mar 31, 2020 13:20
[2020-03-31] MEDS ORDERED: LOVE1INJ SC ×2 (13:40→14:46)
[2020-03-31 14:00] VITALS: BP 135/65
[2020-03-31] MEDS ORDERED: CALCIUM CARBONATE 500 MG CHEW U/D PO PRN (15:15)
[2020-03-31] MEDS ORDERED: CALCIUM CARBONATE 500 MG CHEW U/D PO ONE (15:15)
[2020-03-31] MEDS ORDERED: MIRALAX *UNIT DOSE* 17GM PACKET PO PRN (18:00)
[2020-03-31] MEDS ORDERED: ONDANSETRON 4MG/2ML VIAL IV PRN (18:00)
[2020-03-31] MEDS ORDERED: PILL CUTTER 1 EACH XX PRN (18:15)
[2020-03-31] MEDS: SIMETHICONE 80MG CHEW TAB PO SCH ×2 (18:32→20:05)
[2020-03-31] MEDS ORDERED: SIMETHICONE 80MG CHEW TAB PO SCH (21:00)
[2020-03-31 22:00] VITALS: BP 130/68
[2020-04-01 06:00] VITALS: BP 129/70
[2020-04-01 06:30] LABS: BASO # 0.1 10^3/uL (0.0-0.2); BASO % 0.8 % (0.0-1.0); EOS # 0.4 10^3/uL (0.0-0.5); EOS % 3.4 % (0.0-3.0); HEMATOCRIT 39.5 % (36.0-47.0); HEMOGLOBIN 13.2 g/dl (12.0-15.5); LYMPH # 1.3 10^3/uL (1.5-5.0); LYMPH % 12.8 % (24.0-44.0); MEAN CORPUSCULAR HEMOGLOBIN 31.9 pg (27.0-33.0); MEAN CORPUSCULAR HGB CONC 33.4 g/dl (32.0-36.5); MEAN CORPUSCULAR VOLUME 95.4 fl (80.0-96.0); MONO # 0.8 10^3/uL (0.0-0.8); MONO % 7.3 % (0.0-5.0); NEUTROPHILS # 7.6 10^3/uL (1.5-8.5); NEUTROPHILS % 74.7 % (36.0-66.0); PLATELET COUNT, AUTOMATED 299 10^3/uL (150-450); RED BLOOD COUNT 4.14 10^6/uL (4.00-5.40); WHITE BLOOD COUNT 10.2 10^3/uL (4.0-10.0)
[2020-04-01 07:00] LABS: ALBUMIN 2.4 GM/DL (3.2-5.2); ALT/SGPT 40 U/L (12-78); BILIRUBIN,TOTAL 0.5 MG/DL (0.2-1.0); BLOOD UREA NITROGEN 15 MG/DL (7-18); CALCIUM LEVEL 8.9 MG/DL (8.8-10.2); CARBON DIOXIDE LEVEL 25 MEQ/L (21-32); CHLORIDE LEVEL 103 MEQ/L (98-107); GLOMERULAR FILTRATION RATE > 60.0 (>45); GLUCOSE, FASTING 104 MG/DL (70-100); MAGNESIUM LEVEL 2.4 MG/DL (1.8-2.4); SODIUM LEVEL 138 MEQ/L (136-145); TOTAL PROTEIN 6.4 GM/DL (6.4-8.2)
[2020-04-01] MEDS: OMEPRAZOLE 20 MG CAP PO SCH (08:30)
[2020-04-01] MEDS: DOCUSATE SODIUM 100MG CAPSULE PO SCH (08:30)
[2020-04-01] MEDS: SIMETHICONE 80MG CHEW TAB PO SCH (08:30)
[2020-04-01 08:33] VITALS: BP 128/70
[2020-04-01] MEDS ORDERED: SIME80CH5 PO (10:54)
[2020-04-01] MEDS ORDERED: DOK1CAP7 PO (10:54)
[2020-04-01] MEDS ORDERED: TRAM50TA2 PO (10:54)
[2020-04-01] MEDS ORDERED: CALC200T15 PO (10:54)
[2020-04-01 14:09] LABS: HEXAGONAL PHASE PHOSPHOLIPID 0 sec (0-11)
--- NOTE | 2020-04-01 16:35 | DS.PDOC ---
Discharge Summary General Date of Admission Mar 27, 2020 at 09:41 Date of Discharge 04/01/20 Discharge Summary PROCEDURES PERFORMED DURING STAY: [None]. ADMITTING DIAGNOSES: Left lower extremity DVT GERD Hypertension DISCHARGE DIAGNOSES: Left lower extremity DVT GERD Hypertension COMPLICATIONS/CHIEF COMPLAINT: Dvt (Deep Venous Thrombosis). HISTORY OF PRESENT ILLNESS:64-year-old female history of hypertension found to have a left lower extremity DVT admitted for medical management and physical therapy HOSPITAL COURSE: During hospital stay the following issue addressed Left lower extremity DVT Most likely provoked secondary to sedentary lifestyle on 03/30/20 Dr. Flores did inferior vena cava filter placement to reduce risk of PE during mechanical thrombectomy. Left lower extremity venogram demonstrates complete occlusive thrombus extending from left popliteal vein to left common iliac vein associated with with left common iliac vein occlusion and compression. Also, left lower extremity thrombectomy was done. Heparin drip for [address] Flores recommended Lovenox for 30 days and follow-up with her next week DISCHARGE MEDICATIONS: Please see below. ALLERGIES: Please see below. PHYSICAL EXAMINATION ON DISCHARGE: VITAL SIGNS: Please see below. GENERAL APPEARANCE: NAD HEENT: no scleral icterus, no JVD, EOMI CARDIOVASCULAR: S1S2 LUNGS: CTA ABDOMEN: soft & not tender w palpitation MUSCULOSKELETAL: Left leg is more swollen than the right leg. Peripheral pulses intact INTEGUMENT: no generalized pallor NEUROLOGICAL: cranial nerve function from 2-12 intact intact, follows commands, speech not dysarthric LABORATORY DATA: Please see below. IMAGING: See above PROGNOSIS: Fair ACTIVITY: [As tolerated]. DIET: Cardiac DISPOSITION: 01 Home, Self-Care. ITEMS TO FOLLOWUP ON ON OUTPATIENT: With Dr. Flores DISCHARGE CONDITION: [Stable]. TIME SPENT ON DISCHARGE: Greater than 30 minutes. Vital Signs/I&Os Vital Signs Date Time Temp Pulse Resp B/P (MAP) Pulse Ox O2 Delivery O2 Flow Rate FiO2 04/01/20 08:33 128/70 04/01/20 06:00 97.0 83 18 92 Room Air 03/31/20 06:00 3.0 I&O- Last 24 Hours up to 6 AM 04/01/20 06:00 Intake Total 1264 ml Output Total 475 ml Balance 789 ml Laboratory Data Labs 24H Laboratory Tests 2 03/31/20 16:51: Activated Partial Thromboplast Time 68.9H 04/01/20 05:58: Activated Partial Thromboplast Time 72.1H, Immature Granulocyte % (Auto) 1.0, Neutrophils (%) (Auto) 74.7H, Lymphocytes (%) (Auto) 12.8L, Monocytes (%) (Auto) 7.3H, Eosinophils (%) (Auto) 3.4H, Basophils (%) (Auto) 0.8, Neutrophils # (Auto) 7.6, Lymphocytes # (Auto) 1.3L, Monocytes # (Auto) 0.8, Eosinophils # (Auto) 0.4, Basophils # (Auto) 0.1, Nucleated Red Blood Cells % (auto) 0.0, Anion Gap 10, Glomerular Filtration Rate > 60.0, Calcium Level 8.9, Magnesium Level 2.4, Total Bilirubin 0.5, Aspartate Amino Transf (AST/SGOT) 27, Alanine Aminotransferase (ALT/SGPT) 40, Alkaline Phosphatase 109, Total Protein 6.4, Albumin 2.4L, Albumin/Globulin Ratio 0.6L CBC/BMP Laboratory Tests 04/01/20 05:58 Discharge Medications Scheduled Docusate Sodium (Dok) 100 Mg Capsule, 100 MG PO BID Enoxaparin Sodium (Lovenox) 40 Mg/0.4 Ml Syringe, 100 MG SC BID Lisinopril (Lisinopril) 10 Mg Tablet, 10 MG PO DAILY, (Reported) Simethicone (Simethicone) 80 Mg Tab.chew, 120 MG PO QID Scheduled PRN Calcium Carbonate (Calcium Carbonate) 200 Mg Tab.chew, 500 MG PO BID PRN for INDIGESTION Omeprazole (Omeprazole) 20 Mg Capsule.dr, 20 MG PO DAILY PRN for HEARTBURN, (Reported) Tramadol HCl (Tramadol HCl) 50 Mg Tablet, 50 MG PO Q6HP PRN for MODERATE PAIN (PS 5-7) Allergies Coded Allergies: No Known Allergies (Verified Allergy, Unknown, 03/27/20) WALI NUNEZ DO Apr 01, 2020 16:35
== END 2020-04-01 13:29 | disposition home or self-care (01) ==
LOC: M ED 09:40 → M ED INP 09:41 → M MSPAV 16:15
PROVIDERS: ADMIT Family Medicine; ATTEND Internal Medicine
DX: I82.412 Acute embolism and thrombosis of left femoral vein (principal); I82.432 Acute embolism and thrombosis of left popliteal vein; I82.422 Acute embolism and thrombosis of left iliac vein; K21.9 Gastro-esophageal reflux disease without esophagitis; I10 Essential (primary) hypertension; Z79.01 Long term (current) use of anticoagulants; Z79.899 Other long term (current) drug therapy
CPT/HCPCS: 36010; 36415; 37187; 37191; 37248; 37249; 71275; 75822; 75825; 76937; 77001; 80047; 80048; 80053; 80076; 81240; 82550; 82553; 83735; 83880; 84484; 85025; 85027; 85300; 85301; 85303; 85305; 85379; 85384; 85598; 85610; 85613; 85730; 86147; 87631; 93005; 93971; 96372; 96374; 96376; 97161; 97165; 97530; 97535; 99152; 99153; 99284; C1725; C1757; C1769; C1880; C1887; C1894; J1200; J1644; J1650; J2250; J2405; J2997; J3010; Q9967

== ENCOUNTER → 2020-04-07 | Outpatient (CLI) | payer OTHER ==
[~2020-04-07] MED LIST changes: +ALTEPLASE 2MG/2ML VIAL As Ordered ONE; +CALC200T15 PO; +CAPS25CR TOP; +DOK1CAP7 PO; +ELIQ5TAB PO; +ENOX100I3 SC; -ENOXAPARIN 100MG/1ML SYRINGE (J1650 PER 10MG) SC SCH; +ISOVUE-300 61% 50ML VIAL As Ordered ONE; +KETAMINE HCL 200 MG/20 ML VIAL As Ordered ONE; +LIDO5TD TD; +LIDOCAINE 1% MDV 20ML VIAL As Ordered ONE; +LIDOCAINE 2% 100MG/5ML SDV (FOR ANES.) As Ordered ONE; +LISI10TA22 PO; +LOVE1INJ SC; +LR 1,000 ML IV SCH; -MAALOX 30 ML SUSP *UDC PO PRN; +METOCLOPRAMIDE INJ 10MG/2ML VIAL (J2765 PER 1) IV PRN; +MIDAZOLAM INJ 2MG/2ML VIAL (J2250 PER 1MG) As Ordered ONE; -MOM 30ML SUSPENSION UDC PO PRN; +OMEP-218 PO; +ONDANSETRON 4MG/2ML VIAL As Ordered ONE; +ONDANSETRON 4MG/2ML VIAL IV PRN; +PERCOCET 5MG/325MG TAB As Ordered ONE; +PERCOCET 5MG/325MG TAB PO PRN; +SIME80CH5 PO; +TRAM50TA2 PO; +TUMS500C PO; +XARE15TA PO; +dexameTHASONE 4 MG/ML 1ML VIAL (J1100 PER 1MG) As Ordered ONE; +fentaNYL 100 MCG/2 ML INJECTION (J3010) As Ordered ONE; +fentaNYL 100 MCG/2 ML INJECTION (J3010) IV PRN; +propofoL 200 MG/20 ML VIAL As Ordered ONE
[2020-04-07 15:30] VITALS: BP 143/77
--- NOTE | 2020-04-10 11:49 | POST-OPPD ---
Postoperative Procedure Note Date Of Procedure: Apr 07, 2020 Time Of Procedure: 16:00 IR ULTRASOUND-GUIDED LEFT COMMON FEMORAL VEIN ACCESS. IR PELVIC VENOGRAM. IR LEFT ILIAC VENOGRAM. IR ULTRASOUND-GUIDED RIGHT INTERNAL JUGULAR VEIN ACCESS. IR LEFT COMMON ILIAC VEIN RECANALIZATION. IR LEFT EXTERNAL ILIAC VEIN RECANALIZATION. IR LEFT COMMON ILIAC VEIN STENTING. IR LEFT EXTERNAL ILIAC STENTING. IR LEFT ILIAC AND FEMORAL VEIN THROMBECTOMY. IR LEFT ILIAC VEIN ANGIOPLASTY IR LEFT FEMORAL VEIN ANGIOPLASTY. Clinical Information:Extensive left lower extremity DVT and left common iliac vein occlusion. Pain and swelling. Physician: Dr. Flores. Procedure: The patient was advised of the benefits, risks, and alternatives of the procedure and informed consent was obtained. A time out was performed with verification of the patient's name, MRN, site of procedure, and type of procedure to be performed. The patient was positioned in the supine position on the angiographic table. The site was prepped and draped in the usual sterile fashion. Anesthesia was performed by the anesthesia team. The physician spent 240 minutes [id number] time with the patient. Preliminary ultrasound of the left groin was performed, demonstrating thrombosed left common femoral vein and greater saphenous vein. The left common femoral vein was accessed under ultrasound guidance using a micropuncture kit. An 018 wire was advanced into the left iliac vein under fluor oscopy guidance and the needle was exchanged for a micro-sheath. A pelvic venogram was then performed through the micro-sheath. This demonstrates occlusion of the left common iliac vein with numerous collaterals, filling of cross pelvic collaterals and drainage via the right iliac vein. Left external iliac vein is also irregular with filling defects. Numerous collaterals in the upper thigh and filling defects in the common femoral vein. A Glidewire was advanced through the left groin access and used under fluoroscopy guidance to try to recanalize the left external iliac vein. Failing this, the right internal jugular vein was accessed. Ultrasound of the right neck demonstrates a patent and compressible right internal jugular vein. The right internal jugular vein was accessed under ultrasound guidance using a micropuncture kit. An 018 wire was advanced under fluoroscopy guidance into the inferior vena cava and the needle was exchanged for a micro-sheath. The 018 wire was removed and an 035 wire was advanced into the inferior vena cava. The micro-sheath was exchanged for a 10 [place] sheath. The Glidecath in conjunction with a Glidewire was then used under fluoroscopy guidance to try to catheterize the occluded left common iliac vein. After successful catheterization, a left iliac venogram was performed. This demonstrates complete occlusion of the left common iliac vein, filling of p aravertebral plexus and right common iliac vein. The catheter in conjunction with a wire was used to try to catheterize the pe ripheral left common iliac vein. The catheter was removed over the wire. A 12 x 18 mm [place] balloon was advanced over the wire and used under fluoroscopy guidance to angioplasty with left common iliac vein. Heparin was administered. After appropriate angioplasty, the catheter was advanced over the wire and used to catheterize the left external iliac vein. A venogram was performed and this demonstrates scarring and irregularity in the left external iliac vein and drainage via cross pelvic collaterals. A 12 x 80 mm angioplasty balloon was advanced over the wire, under fluoroscopic guidance and used to angioplasty the left external iliac vein. With the balloon inflated, a wire was used under fluoroscopy guidance to recanalize through the left common femoral vein into the femoral vein. With the balloon inflated, a reflux inferior venacavogram was performed. This demonstrates patent inferior vena cava and IVC filter in place. The tip of the sheath paulson the confluence of the inflow from the right common iliac vein. The balloon was deflated and removed over the wire. An 8 x 200 mg [place] balloon was advanced over the wire under fluoroscopic guidance and positioned in the left common iliac, external iliac and common femoral vein. Angioplasty was performed. Additional heparin was administered. The balloon was deflated and repositioned distally into the common femoral and femoral vein. Angioplasty was performed. The balloon was deflated and removed over the wire. A catheter was advanced over the wire into the left femoral vein and a follow-up post angioplasty venogram was performed. This demonstrates flow from the left femoral and left common femoral vein. There is now flow in the left external iliac and common iliac vein all the way back to the IVC. The recanalize vein is small and scarred. No further filling of cross pelvic collaterals. The catheter was retracted to the common femoral vein and a repeat venogram was performed. This demonstrates patency in the left external and common iliac vein. Patency of inferior vena cava and identifies the inflow of the right common iliac vein. A 16 x 60 mm wall stent was then advanced over the wire, under fluoroscopic guidance and positioned to extend from the IVC/ left common iliac junction into the left common iliac vein. The stent was deployed under fluoroscopy guidance. A 60 x 40 mm angioplasty balloon was then advanced over the wire, under fluoroscopy guidance and used to expand the stent. Follow-up brick tosser radiograph demonstrates appropriate expansion of the left common iliac vein stent. A catheter was advanced over the wire, under fluoroscopy guidance and used to catheterize the left common femoral vein. A follow-up venogram was performed and this demonstrates flow from the left common femoral vein through the external iliac, the stented common iliac vein back to the IVC. There is irregularity and narrowing of the left external iliac vein. A 14 x 60 mm wall stent was then advanced over the wire, under fluoroscopy guidance and positioned in the left external iliac vein. The stent was deployed under fluoroscopy guidance. A 14 x 40 mm angioplasty balloon was then advanced over the wire under fluoroscopic guidance and positioned in the left external iliac vein. The balloon was inflated and used to expand the left iliac stent. A follow-up venogram was performed from the left common femoral vein. This demonstrates flow in the left external iliac and common iliac vein back to the IVC. Postinjection there is hang-up of contrast in the recanalized vein with irregularity and filling defects suggestive of clot. 4 mg of TPA was then injected into the left external iliac vein. A CAT 8 penumbra device was then advanced under fluoroscopy guidance into the left common femoral vein and used to perform thrombectomy in common femoral, external iliac and common iliac veins. A follow-up venogram was then performed which demonstrates flow from the left co mmon femoral, via the external iliac and common iliac vein, back to the IVC. A follow-up brick tosser radiograph was obtained and demonstrates adequate expansion of both stents. Left groin sheath and neck sheath were removed, pressure held and hemostasis achieved. A sterile dressing was applied to the site. The patient tolerated the procedure well and was returned to the PRU in stable condition. EBL: < 5 mL. Complications:None. Conclusions: 1. Pelvic venogram demonstrates complete occlusion of left common iliac and partial occlusion of left external iliac veins. 2. Successful left common iliac and external iliac vein recanalization, angioplasty and stenting. 3. Patient will be admitted for 24-hour systemic heparinization. Patient will discharged on Lovenox with clinic follow-up next Friday. Thank you for this referral. TAMRA FLORES MD Apr 10, 2020 11:48
== END ==
LOC: M IRPRO 09:34
PROVIDERS: ATTEND Radiology Diagnostic Radiology
DX: I82.412 Acute embolism and thrombosis of left femoral vein (principal); I82.890 Acute embolism and thrombosis of other specified veins
CPT/HCPCS: 37187; 37238; 37239; 37248; 75820; J1100; J1644; J2250; J2405; J2997; J3010; Q9967

== ENCOUNTER → 2020-04-11 | Outpatient (POV) | payer OTHER ==
[~2020-04-11] MED LIST changes: -ALTEPLASE 2MG/2ML VIAL As Ordered ONE; -ISOVUE-300 61% 50ML VIAL As Ordered ONE; -KETAMINE HCL 200 MG/20 ML VIAL As Ordered ONE; -LIDOCAINE 1% MDV 20ML VIAL As Ordered ONE; -LIDOCAINE 2% 100MG/5ML SDV (FOR ANES.) As Ordered ONE; -LR 1,000 ML IV SCH; -METOCLOPRAMIDE INJ 10MG/2ML VIAL (J2765 PER 1) IV PRN; -MIDAZOLAM INJ 2MG/2ML VIAL (J2250 PER 1MG) As Ordered ONE; -ONDANSETRON 4MG/2ML VIAL As Ordered ONE; -ONDANSETRON 4MG/2ML VIAL IV PRN; -PERCOCET 5MG/325MG TAB As Ordered ONE; -PERCOCET 5MG/325MG TAB PO PRN; -dexameTHASONE 4 MG/ML 1ML VIAL (J1100 PER 1MG) As Ordered ONE; -fentaNYL 100 MCG/2 ML INJECTION (J3010) As Ordered ONE; -fentaNYL 100 MCG/2 ML INJECTION (J3010) IV PRN; -propofoL 200 MG/20 ML VIAL As Ordered ONE
--- NOTE | 2020-04-13 11:54 | IRPN ---
[facility] IR Progress Note IR Progress Note DATE: Apr 11, 2020 Patient agreed to this telephone follow-up. I spent 10 minutes talking to the patient. FOLLOW-UP: 64-year-old female recently admitted for extensive left lower extremity DVT extending from below popliteal to the IVC. This was treated with IVC filter placement followed by thrombectomy, left iliac vein recanalization, reconstruction and stenting. Patient was discharged on twice a day Lovenox. Patient states her left leg swelling is going down. She is able to better mobilize around the house. ON EXAMINATION: No video on patient side. IMPRESSION: Doing well status post left lower extremity thrombectomy, left iliac vein recanalization, reconstruction and stenting. She is encouraged to mobilize, exercise using exercise bike or treadmill. I will give her a prescription for thigh-high compression. She will also be started on Plavix. She is to continue Lovenox for at least one month after which I might consider changing her to an oral anticoagulant. We will follow her up in 6 months. Thank you for this referral Cc PCP Allergies Coded Allergies: No Known Allergies (Verified Allergy, Unknown, 03/27/20) TAMRA DAVIS MD Apr 13, 2020 11:54
== END ==
LOC: M TMIRPOV 10:33
PROVIDERS: ATTEND Radiology Diagnostic Radiology
DX: Z48.812 Encounter for surgical aftercare following surgery on the circulatory system (principal); I82.412 Acute embolism and thrombosis of left femoral vein; I82.890 Acute embolism and thrombosis of other specified veins; Z95.828 Presence of other vascular implants and grafts

== ENCOUNTER → 2020-10-10 | Outpatient (POV) | payer OTHER ==
[~2020-10-10] VITALS: Ht 154.9 cm; Wt 96.8 kg
[~2020-10-10] MED LIST changes: +DOK1CAP4 PO; -DOK1CAP7 PO
[2020-10-10 08:35] VITALS: BP 160/80
--- NOTE | 2020-10-12 09:19 | IRPN ---
[facility] IR Progress Note IR Progress Note DATE: Oct 10, 2020 FOLLOW-UP: Patient with a history of left lower extremity DVT and chronic left iliac vein occlusion, now status post thrombectomy, angioplasty and stent reconstruction of the left iliac vein. Patient states her left leg has always been bigger than her right leg and that's been a lifelong issue. She doesn't feel there is been significant change after stenting and angioplasty. She denies any pain in the left lower extremity. But she does complain of leg heaviness and fatigue. She denies intermittent claudication or rest pain with leg elevation. ON EXAMINATION: Left leg asymmetrically bigger than right leg. Calf soft nontender. Warm to touch. Color normal. Bulging varicose veins. IMPRESSION: Patient with chronic left iliac vein occlusion and left lower extremity DVT, is status post left iliac vein reconstruction and stenting. Patient has not noticed any significant change in her left lower extremity symptoms and continues to complain of left leg heaviness. I would like to perform a venogram to assess for stent patency and/or need for revision. Patient remains on blood thinners. We'll schedule the patient for venogram, angioplasty and/or stent revision under anesthesia. RALEIGH CHACON PA-C Allergies Coded Allergies: No Known Allergies (Verified Allergy, Unknown, 03/27/20) VS,Fishbone, I+O VS, Fishbone, I+O Vital Signs Date Time Temp Pulse Resp B/P (MAP) Pulse Ox O2 Delivery O2 Flow Rate FiO2 10/10/20 08:35 97.0 71 20 160/80 (106) 96 Room Air TAMRA DAVIS MD Oct 12, 2020 09:19
== END ==
LOC: M IRPOV 07:46
PROVIDERS: ATTEND Radiology Diagnostic Radiology
DX: I82.522 Chronic embolism and thrombosis of left iliac vein (principal); I83.893 Varicose veins of bilateral lower extremities with other complications; Z79.01 Long term (current) use of anticoagulants; Z86.718 Personal history of other venous thrombosis and embolism; Z95.828 Presence of other vascular implants and grafts

== ENCOUNTER → 2020-11-10 | Outpatient (CLI) | payer OTHER | LOC: M LABSMTC 11:04 | PROVIDERS: ATTEND Anesthesiology | DX: Z01.812 Encounter for preprocedural laboratory examination (principal); Z20.822 Contact with and (suspected) exposure to COVID-19 ==

== ENCOUNTER → 2020-11-15 | Outpatient (CLI) | payer OTHER ==
[~2020-11-15] MED LIST changes: +CLOP75TA2 PO; +XARE20TA PO
== END ==
LOC: M IRPRO 06:22
PROVIDERS: ATTEND Radiology Diagnostic Radiology
DX: Z53.9 Procedure and treatment not carried out, unspecified reason (principal)

== ENCOUNTER → 2020-11-23 | Outpatient (CLI) | payer OTHER ==
[2020-11-23 11:00] LABS: HEMATOCRIT 46.3 % (36.0-47.0); HEMOGLOBIN 15.5 g/dl (12.0-15.5); MEAN CORPUSCULAR HEMOGLOBIN 32.2 pg (27.0-33.0); MEAN CORPUSCULAR HGB CONC 33.5 g/dl (32.0-36.5); MEAN CORPUSCULAR VOLUME 96.3 fl (80.0-96.0); PLATELET COUNT, AUTOMATED 288 10^3/uL (150-450); RED BLOOD COUNT 4.81 10^6/uL (4.00-5.40); WHITE BLOOD COUNT 6.4 10^3/uL (4.0-10.0)
[2020-11-23 11:38] LABS: BLOOD UREA NITROGEN 11 MG/DL (7-18); CALCIUM LEVEL 9.2 MG/DL (8.8-10.2); CARBON DIOXIDE LEVEL 29 MEQ/L (21-32); CHLORIDE LEVEL 106 MEQ/L (98-107); CREATININE FOR GFR 0.74 MG/DL (0.55-1.30); GLOMERULAR FILTRATION RATE > 60.0 (>45); GLUCOSE, FASTING 84 MG/DL (70-100); POTASSIUM SERUM 4.1 MEQ/L (3.5-5.1); SODIUM LEVEL 140 MEQ/L (136-145)
== END ==
LOC: M PLALAB 08:57
PROVIDERS: ATTEND Family Medicine
DX: Z01.818 Encounter for other preprocedural examination (principal)

== ENCOUNTER → 2020-11-25 | Outpatient (CLI) | payer OTHER | LOC: M LABSMTC 09:05 | PROVIDERS: ATTEND Anesthesiology | DX: Z01.818 Encounter for other preprocedural examination (principal); Z11.52 Encounter for screening for COVID-19 ==

== ENCOUNTER → 2020-11-30 | Outpatient (CLI) | payer OTHER ==
[~2020-11-30] MED LIST changes: +ISOVUE-300 61% 50ML VIAL As Ordered ONE; +LIDOCAINE 1% MDV 20ML VIAL As Ordered ONE; +NS 1,000 ML IV SCH
[2020-11-30 12:28] VITALS: BP 155/4
--- NOTE | 2020-11-30 16:00 | IRPON ---
IR Postoperative Note Date Of Procedure: Nov 30, 2020 Time Of Procedure: 15:52 IR Postoperative Note IR Ultrasound-guided left common femoral vein access. IR Pelvic venogram. Clinical Information:History of chronic left iliac vein occlusion with left lower extremity swelling and DVT. Patient was treated with anticoagulation, IVC filter placement and left iliac vein reconstruction with stent placement. Estela ient has recurrent left lower extremity swelling. Physician: Dr. Flores. Procedure: The patient was advised of the benefits, risks, and alternatives of the procedure and informed consent was obtained. A time out was performed with verification of the patient's name, MRN, site of procedure, and type of procedure to be performed. The patient was positioned in the supine position on the angiographic table. The site was prepped and draped in the usual sterile fashion. Anesthesia was performed by the anesthesia team. Poultry Process Worker radiograph demonstrates left iliac vein stent. IVC filter in place. Preliminary ultrasound of the left groin was performed, demonstrating patent and compressible left common femoral vein. The left common femoral vein was accessed under ultrasound guidance, using a micropuncture kit. A 0.035 [place] wire was advanced under fluoroscopy guidance and placed into the left external iliac vein. The micro sheath was exchanged for a 6 Sami sheath. A pelvic venogram was performed through the sheath and this demonstrates, complete occlusion of the left common iliac vein stent with cross pelvic collateral drainage via the right common iliac vein back to the IVC. A 4 Sami glide cath was advanced through the sheath and used with a Glidewire, under fluoroscopy guidance, to try to recanalize the stent. This confirms that this is not acute clot but rather recurrent, chronic total occlusion. Recanalization is not possible with fluoroscopy guidance only and will require IVUS guidance. Catheter wire and sheath were removed, pressure held and hemostasis achieved. A sterile dressing was applied to the site. The patient tolerated the procedure well and was returned to the PRU in stable condition. EBL: < 5 mL. Complications:None. Conclusions: Pelvic venogram confirms recurrent chronic total occlusion of reconstructed left common iliac vein. 2. Patient will require IVUS guidance for recanalization and revision of left common iliac occlusion and stent. Patient will be referred to outside facility with IVUS capabilities. TAMRA FLORES MD Nov 30, 2020 16:00
== END ==
LOC: M IRPRO 11:01
PROVIDERS: ATTEND Radiology Diagnostic Radiology
DX: I87.1 Compression of vein (principal); I70.92 Chronic total occlusion of artery of the extremities; R22.42 Localized swelling, mass and lump, left lower limb; I82.4Y2 Acute embolism and thrombosis of unspecified deep veins of left proximal lower extremity; I10 Essential (primary) hypertension; K21.9 Gastro-esophageal reflux disease without esophagitis; Z87.891 Personal history of nicotine dependence; Z90.710 Acquired absence of both cervix and uterus
CPT/HCPCS: 36011; 75820; C1769; C1887; C1894; J1644; Q9967; U0002

== ENCOUNTER → 2020-12-19 | Outpatient (POV) | payer OTHER ==
[~2020-12-19] VITALS: Ht 154.9 cm; Wt 95.4 kg
[~2020-12-19] MED LIST changes: -ISOVUE-300 61% 50ML VIAL As Ordered ONE; -LIDOCAINE 1% MDV 20ML VIAL As Ordered ONE; -NS 1,000 ML IV SCH
[2020-12-19 08:47] VITALS: BP 158/80
--- NOTE | 2020-12-21 12:04 | IRPN ---
[facility] IR Progress Note IR Progress Note DATE: Dec 19, 2020 FOLLOW-UP: Patient is status post pelvic venogram for chronic left lower extremity venous hypertension and known iliac vein occlusion. Patient is status post left iliac vein stenting. Venogram demonstrated the stents are not patent. There are cross pelvic collaterals draining the left lower extremity, via the right iliac vein. Patient denies any change in chronic swelling in the left lower extremity. She would like to lose some weight and exercise. She is not wearing compression stockings at present. We discussed the options for referring her out to a center with IVUS capabilities for further aggressive venous reconstruction. At present patient does not have any ulcers, significant aching in the leg or weeping of the skin. Her collaterals may be ample to compensate for her occluded left iliac vein. The other extreme would be, she continues to worsen in terms of venous hypertension and ultimately develops venous ulcers. There are of course no guarantees that with further venous reconstruction and sebastian nting, the stented vein would stay open. She remains on Plavix and Xarelto. ON EXAMINATION: Groin access site healed. Full range of motion in the left lower extremity. IMPRESSION: Patient with chronic left lower extremity venous hypertension associated with asymmetric swelling of the left lower extremity and known left iliac vein occlusion. She is status post left iliac vein stenting however, the stents have occluded. She is draining her left lower extremity via cross pelvic collaterals and is not progressing to venous ulcers. She is encouraged to wear compression therapy, exercise and lose weight. When she desires, she will be referred to an outside facility with IVUS capabilities, if she desires to pursue further venous recanalization and reconstruction. She should continue on Xarelto and Plavix. IR follow-up in 12 months. Thank you for this referral. CC Dr. Gore CC patient's current PCP Allergies Coded Allergies: No Known Allergies (Verified Allergy, Unknown, 03/27/20) VS,Fishbone, I+O VS, Fishbone, I+O Vital Signs Date Time Temp Pulse Resp B/P (MAP) Pulse Ox O2 Delivery O2 Flow Rate FiO2 12/19/20 08:47 97.9 65 20 158/80 (106) 98 Room Air TAMRA DAVIS MD Dec 21, 2020 12:04
== END ==
LOC: M IRPOV 08:40
PROVIDERS: ATTEND Radiology Diagnostic Radiology
DX: I70.292 Other atherosclerosis of native arteries of extremities, left leg (principal); I87.302 Chronic venous hypertension (idiopathic) without complications of left lower extremity; Z79.01 Long term (current) use of anticoagulants; Z95.828 Presence of other vascular implants and grafts

== ENCOUNTER → 2021-05-02 | Outpatient (CLI) | payer OTHER ==
[~2021-05-02] MED LIST changes: +OMEP-173 PO; -OMEP-218 PO
[2021-05-02 17:30] LABS: HEMATOCRIT 46.3 % (36.0-47.0); HEMOGLOBIN 15.6 g/dl (12.0-15.5); MEAN CORPUSCULAR HEMOGLOBIN 32.1 pg (27.0-33.0); MEAN CORPUSCULAR HGB CONC 33.7 g/dl (32.0-36.5); MEAN CORPUSCULAR VOLUME 95.3 fl (80.0-96.0); PLATELET COUNT, AUTOMATED 309 10^3/uL (150-450); RED BLOOD COUNT 4.86 10^6/uL (4.00-5.40); WHITE BLOOD COUNT 8.3 10^3/uL (4.0-10.0)
[2021-05-02 18:48] LABS: ALBUMIN 3.6 GM/DL (3.2-5.2); ALT/SGPT 24 U/L (12-78); BILIRUBIN,TOTAL 0.4 MG/DL (0.2-1.0); BLOOD UREA NITROGEN 10 MG/DL (7-18); CALCIUM LEVEL 9.3 MG/DL (8.8-10.2); CARBON DIOXIDE LEVEL 30 MEQ/L (21-32); CHLORIDE LEVEL 111 MEQ/L (98-107); CREATININE FOR GFR 0.91 MG/DL (0.55-1.30); GLOMERULAR FILTRATION RATE > 60.0 (>45); GLUCOSE, FASTING 91 MG/DL (70-100); POTASSIUM SERUM 4.3 MEQ/L (3.5-5.1); SODIUM LEVEL 144 MEQ/L (136-145); THYROID STIMULATING HORMONE 0.489 uIU/ML (0.358-3.740); TOTAL PROTEIN 7.4 GM/DL (6.4-8.2)
[2021-05-02 20:29] LABS: HEMOGLOBIN A1c 5.3 %
== END ==
LOC: M PLALAB 14:10
PROVIDERS: ATTEND Nurse Practitioner Adult Health
DX: E66.9 Obesity, unspecified (principal); Z68.41 Body mass index [BMI] 40.0-44.9, adult

== ENCOUNTER → 2021-06-08 | Outpatient (CLI) | payer OTHER | LOC: M WUC 15:07 | DX: M17.11 Unilateral primary osteoarthritis, right knee (principal) ==

== ENCOUNTER → 2021-07-04 | Outpatient (CLI) | payer OTHER | LOC: M SOG 14:08 | PROVIDERS: ATTEND Orthopaedic Surgery Adult Reconstructive Orthopaedic Surgery | DX: M25.561 Pain in right knee (principal) ==

== ENCOUNTER → 2021-11-07 | Outpatient (CLI) | payer OTHER ==
[2021-11-07 18:28] LABS: HEMATOCRIT 45.4 % (36.0-47.0); MEAN CORPUSCULAR HEMOGLOBIN 32.5 pg (27.0-33.0); MEAN CORPUSCULAR VOLUME 98.3 fl (80.0-96.0); PLATELET COUNT, AUTOMATED 281 10^3/uL (150-450); RED BLOOD COUNT 4.62 10^6/uL (4.00-5.40); WHITE BLOOD COUNT 7.9 10^3/uL (4.0-10.0)
[2021-11-07 18:58] LABS: ALBUMIN 3.8 GM/DL (3.2-5.2); ALT/SGPT 20 U/L (12-78); BILIRUBIN,TOTAL 0.5 MG/DL (0.2-1.0); BLOOD UREA NITROGEN 10 MG/DL (7-18); CALCIUM LEVEL 9.4 MG/DL (8.8-10.2); CARBON DIOXIDE LEVEL 27 MEQ/L (21-32); CHLORIDE LEVEL 108 MEQ/L (98-107); CREATININE FOR GFR 0.77 MG/DL (0.55-1.30); GLOMERULAR FILTRATION RATE > 60.0 (>45); GLUCOSE, FASTING 106 MG/DL (70-100); POTASSIUM SERUM 4.4 MEQ/L (3.5-5.1); SODIUM LEVEL 141 MEQ/L (136-145); TOTAL PROTEIN 7.2 GM/DL (6.4-8.2)
== END ==
LOC: M PLALAB 14:38
PROVIDERS: ATTEND Nurse Practitioner Adult Health
DX: I10 Essential (primary) hypertension (principal)

== ENCOUNTER → 2021-12-19 | Outpatient (CLI) | payer OTHER | LOC: M WHC 12:53 | PROVIDERS: ATTEND Nurse Practitioner Adult Health | DX: Z12.31 Encounter for screening mammogram for malignant neoplasm of breast (principal) ==

== ENCOUNTER → 2022-01-22 | Outpatient (POV) | payer OTHER ==
[~2022-01-22] VITALS: Ht 154.9 cm; Wt 95.4 kg
[2022-01-22 14:45] VITALS: BP 165/79
== END ==
LOC: M IRPOV 14:36
PROVIDERS: ATTEND Radiology Diagnostic Radiology
DX: I87.302 Chronic venous hypertension (idiopathic) without complications of left lower extremity (principal)

== ENCOUNTER → 2022-09-18 | Outpatient (CLI) | payer OTHER ==
[2022-09-18 10:32] LABS: HEMATOCRIT 42.3 % (36.0-47.0); MEAN CORPUSCULAR HEMOGLOBIN 31.8 pg (27.0-33.0); MEAN CORPUSCULAR HGB CONC 33.1 g/dl (32.0-36.5); MEAN CORPUSCULAR VOLUME 96.1 fl (80.0-96.0); PLATELET COUNT, AUTOMATED 259 10^3/uL (150-450); WHITE BLOOD COUNT 6.4 10^3/uL (4.0-10.0)
[2022-09-18 11:03] LABS: ALBUMIN 3.5 G/DL (3.2-5.2); ALKALINE PHOSPHATASE 70 U/L (46-116); ALT/SGPT 13 U/L (7.0-40); AST/SGOT < 8 U/L (<34); BILIRUBIN,TOTAL 0.7 MG/DL (0.3-1.2); BLOOD UREA NITROGEN 11 MG/DL (9-23); CALCIUM LEVEL 8.7 MG/DL (8.3-10.6); CARBON DIOXIDE LEVEL 25 MMOL/L (20-31); CHLORIDE LEVEL 109 MMOL/L (98-107); CHOLESTEROL LEVEL 149 MG/DL (<200); CHOLESTEROL RISK RATIO 3.34 (<5); CREATININE FOR GFR 0.75 MG/DL (0.55-1.30); GLOMERULAR FILTRATION RATE > 60.0 (>45); GLUCOSE, FASTING 85 MG/DL (74-106); HDL CHOLESTEROL 44.5 MG/DL (>40); LDL CHOLESTEROL 81.7 MG/DL (<100); NON-HDL-C 104.5 MG/DL; POTASSIUM SERUM 4.2 MMOL/L (3.5-5.1); SODIUM LEVEL 143 MMOL/L (136-145); TOTAL PROTEIN 6.5 G/DL (5.7-8.2); TRIGLYCERIDES LEVEL 114 MG/DL (<150)
[2022-09-18 11:07] LABS: THYROID STIMULATING HORMONE 0.446 uIU/ML (0.55-4.78)
== END ==
LOC: M PLALAB 08:52
PROVIDERS: ATTEND Nurse Practitioner Adult Health
DX: I87.1 Compression of vein (principal); I10 Essential (primary) hypertension; Z68.41 Body mass index [BMI] 40.0-44.9, adult; Z13.220 Encounter for screening for lipoid disorders

== ENCOUNTER → 2024-01-28 | Outpatient (CLI) | payer OTHER ==
[2024-01-28 15:22] LABS: HEMATOCRIT 46.6 % (36.0-47.0); HEMOGLOBIN 15.7 g/dl (12.0-15.5); MEAN CORPUSCULAR HEMOGLOBIN 33.3 pg (27.0-33.0); MEAN CORPUSCULAR HGB CONC 33.7 g/dl (32.0-36.5); MEAN CORPUSCULAR VOLUME 98.7 fl (80.0-96.0); PLATELET COUNT, AUTOMATED 287 10^3/uL (150-450); RED BLOOD COUNT 4.72 10^6/uL (4.00-5.40); WHITE BLOOD COUNT 7.6 10^3/uL (4.0-10.0)
[2024-01-28 15:49] LABS: ALBUMIN 3.8 G/DL (3.2-5.2); ALKALINE PHOSPHATASE 84 U/L (35-104); ALT/SGPT 17 U/L (7.0-40); AST/SGOT < 8 U/L (<34); BILIRUBIN,TOTAL 0.6 MG/DL (0.3-1.2); BLOOD UREA NITROGEN 16 MG/DL (9-23); CALCIUM LEVEL 10.1 MG/DL (8.3-10.6); CARBON DIOXIDE LEVEL 28 MMOL/L (20-31); CHLORIDE LEVEL 108 MMOL/L (98-107); CHOLESTEROL LEVEL 207 MG/DL (<200); CHOLESTEROL RISK RATIO 3.98 (<5); CREATININE FOR GFR 0.81 MG/DL (0.55-1.30); GLOMERULAR FILTRATION RATE > 60.0 (>45); GLUCOSE, FASTING 76 MG/DL (74-106); HDL CHOLESTEROL 51.9 MG/DL (>40); LDL CHOLESTEROL 118.1 MG/DL (<100); NON-HDL-C 155.1 MG/DL; POTASSIUM SERUM 4.4 MMOL/L (3.5-5.1); SODIUM LEVEL 144 MMOL/L (136-145); TOTAL PROTEIN 7.5 G/DL (5.7-8.2); TRIGLYCERIDES LEVEL 185 MG/DL (<150)
[2024-01-28 15:52] LABS: FERRITIN 313.6 NG/ML (7.3-270.7)
[2024-01-28 15:53] LABS: THYROID STIMULATING HORMONE 1.218 uIU/ML (0.55-4.78)
== END ==
LOC: M PLALAB 12:24
PROVIDERS: ATTEND Nurse Practitioner Adult Health
DX: I10 Essential (primary) hypertension (principal)